=== PATIENT | male | born 1975 | race Caucasian/White ===

== ENCOUNTER → 2018-05-31 00:35 | Outpatient (CLI) | payer OTHER, SELFPAY ==
--- NOTE | 2018-05-31 06:59 | DI.REPORT_ITS ---
SYMPTOM/DIAGNOSIS: CIRRHOSIS, ? HHC, SURVEILLANCE ABDOMINAL ULTRASOUND: Comparison 11/30/17. The aorta and IVC are unremarkable. The liver measures 14 cm in length. The liver has an echotexture. There is a lobulated appearance of the contour. No hepatic mass is seen The findings are suggestive of hepatic cirrhosis. The gallbladder, bile ducts, pancreas and kidneys are unremarkable. The spleen is mildly enlarged measuring almost 14 cm. IMPRESSION: Findings suggestive of hepatic cirrhosis. 2. Splenomegaly. 3. No evidence of an hepatic mass.
== END ==
PROVIDERS: PCP Internal Medicine; Visit Provider Internal Medicine Gastroenterology
DX: K74.60 Unspecified cirrhosis of liver (principal); R16.1 Splenomegaly, not elsewhere classified
CPT/HCPCS: 76700

== ENCOUNTER → 2018-06-02 15:07 | Outpatient (CLI) | payer OTHER, SELFPAY ==
[2018-06-02 15:44] LABS: Abs Immature Grans 0.01 k/cumm (0.0-0.09); Absolute Basophil Count 0.01 k/cumm (0.0-0.2); Absolute Eosinophil Count 0.12 k/cumm (0.0-0.7); Absolute Lymphocyte Count 1.28 k/cumm (1.2-3.4); Absolute Monocyte Count 0.68 k/cumm (0.11-0.7); Absolute Neutrophil Count 3.42 k/cumm (1.2-6.7); Basophils % 0.2; Eosinophils % 2.2; HGB 15.4 g/dL (13.5-17.5); Immature Grans % 0.2; Lymphocytes % 23.2; Mean Corpuscular Hemoglobin 33.2 pg (27.0-33.0); Mean Corpuscular Volume 94.8 fL (80-95); Mean Platelet Volume 11.4 fL (8.0-11.0); Monocytes % 12.3; Neutrophils % 61.9; Platelet Count 107 x1000/uL (130-400); RBC 4.64 m/cumm (4.50-6.00); RBC Distribution Width 12.2 % (11.8-14.1); White Blood Cell Count 5.52 k/cumm (4.4-10.8)
[2018-06-02 16:16] LABS: PTT Activated 25.5 sec (21.0-31.4)
[2018-06-02 16:41] LABS: ALT 40 U/L (12-78); AST 48 U/L (15-37); Albumin 3.5 g/dL (3.4-5.0); Alkaline Phosphatase 91 U/L (46-116); Anion Gap 9.3 mmol/L (3-11); BUN 14 mg/dL (7-18); Bilirubin, Direct 0.35 mg/dL (0.00-0.20); Bilirubin, Total 0.9 mg/dL (0.2-1.0); CO2 25.7 mmol/L (21.0-32.0); CREATININE 0.75 mg/dL (0.70-1.30); Calcium 8.9 mg/dL (8.5-10.1); Chloride 104 mmol/L (98-107); Glucose 77 mg/dL (70-100); Sodium 139 mmol/L (136-145); Total Protein 7.3 g/dL (6.4-8.2)
== END ==
PROVIDERS: PCP Internal Medicine; Visit Provider Internal Medicine Gastroenterology
DX: K74.69 Other cirrhosis of liver (principal)
CPT/HCPCS: 36415; 80048; 80076; 85025; 85730

== ENCOUNTER 2018-12-01 05:49 | Outpatient (CLI) | payer OTHER, SELFPAY ==
--- NOTE | 2018-12-01 08:00 | DI.US_ITS ---
SYMPTOM/DIAGNOSIS: F/U CIRRHOSIS OF LIVER, K74.69 ABDOMEN ULTRASOUND: Comparison is made with 05/31/18. The liver is unchanged in size at 14 cm. Mildly lobulated contour and heterogeneous echotexture and prominent portal vein are again noted. The portal vein flow appears to be in the hepatopedal direction. No ascites is seen. Mild splenomegaly is again noted, unchanged. There is no biliary dilatation or evidence of gallstones. No focal liver masses are identified. The kidneys, aorta and pancreas are unremarkable. The right kidney was not optimally visualized due to bowel gas. IMPRESSION: Stable appearance of mild cirrhosis. No focal liver lesion or ascites.
== END 2018-12-01 06:09 ==
PROVIDERS: PCP Internal Medicine; Visit Provider Internal Medicine Gastroenterology
DX: K74.69 Other cirrhosis of liver (principal); R16.1 Splenomegaly, not elsewhere classified
CPT/HCPCS: 76700

== ENCOUNTER 2019-05-31 15:02 | Outpatient (CLI) | payer OTHER, SELFPAY ==
[2019-05-31 15:44] LABS: INR 1.1 (0.9-1.1); Prothrombin Time 11.2 sec (9.3-11.0)
[2019-05-31 15:47] LABS: Abs Immature Grans 0.02 k/cumm (0.0-0.09); Absolute Basophil Count 0.02 k/cumm (0.0-0.2); Absolute Eosinophil Count 0.17 k/cumm (0.0-0.7); Absolute Lymphocyte Count 1.13 k/cumm (1.2-3.4); Absolute Monocyte Count 0.73 k/cumm (0.11-0.7); Absolute Neutrophil Count 3.89 k/cumm (1.2-6.7); Basophils % 0.3; Eosinophils % 2.9; HCT 45.4 % (40.0-50.0); Immature Grans % 0.3; Mean Corp. HGB Concentration 35.2 g/dL (32.0-36.0); Mean Corpuscular Hemoglobin 33.2 pg (27.0-33.0); Mean Corpuscular Volume 94.2 fL (80-95); Mean Platelet Volume 11.3 fL (8.0-11.0); Monocytes % 12.2; Neutrophils % 65.3; Platelet Count 130 x1000/uL (130-400); RBC 4.82 m/cumm (4.50-6.00); RBC Distribution Width 12.4 % (11.8-14.1); White Blood Cell Count 5.96 k/cumm (4.4-10.8)
[2019-05-31 16:05] LABS: ALT 49 U/L (12-78); AST 50 U/L (15-37); Albumin 3.6 g/dL (3.4-5.0); Alkaline Phosphatase 87 U/L (46-116); Anion Gap 9.3 mmol/L (3-11); BUN 17 mg/dL (7-18); Bilirubin, Total 0.8 mg/dL (0.2-1.0); CO2 25.7 mmol/L (21.0-32.0); CREATININE 0.87 mg/dL (0.70-1.30); Calcium 9.1 mg/dL (8.5-10.1); Chloride 105 mmol/L (98-107); Glucose 95 mg/dL (70-100); Sodium 140 mmol/L (136-145); Total Protein 7.3 g/dL (6.4-8.2)
== END 2019-05-31 15:22 ==
PROVIDERS: PCP Internal Medicine; Visit Provider Internal Medicine Gastroenterology
DX: K74.69 Other cirrhosis of liver (principal)
CPT/HCPCS: 36415; 80053; 85025; 85610

== ENCOUNTER 2019-08-04 01:02 | Outpatient (CLI) | payer OTHER, SELFPAY ==
--- NOTE | 2019-08-04 07:45 | DI.US_ITS ---
EXAM: US ABDOMEN CLINICAL HISTORY: F/U CIRRHOSIS OF LIVER,K74.69. TECHNIQUE: Ultrasound performed using standard protocol. COMPARISON: US ABDOMEN from 12/01/2018 FINDINGS: The liver shows somewhat nodular contour and heterogeneous echotexture consistent with cirrhosis. Th ere is normal directional portal venous flow. No evidence of cholelithiasis or biliary dilatation. Pancreas intact as visualized. Mild splenomegaly noted. The kidneys are unremarkable in appearance. Aorta not well seen. IMPRESSION: Findings consistent with hepatic cirrhosis and splenomegaly. No focal lesion identified.
== END 2019-08-04 01:22 ==
PROVIDERS: PCP Internal Medicine; Visit Provider Internal Medicine Gastroenterology
DX: K74.69 Other cirrhosis of liver (principal); R16.1 Splenomegaly, not elsewhere classified
CPT/HCPCS: 76700

== ENCOUNTER 2022-06-09 10:51 | Outpatient (REF) | payer OTHER, SELFPAY ==
[2022-06-09 11:12] LABS: Source Nasal/Nares
[2022-06-09 16:06] LABS: COVID-19 PCR Negative (Negative)
== END 2022-06-09 10:52 | disposition home or self-care (01) ==
LOC: LBO 10:51
PROVIDERS: PCP Internal Medicine; Visit Provider Nurse Practitioner Family
DX: Z20.822 Contact with and (suspected) exposure to COVID-19 (principal)
CPT/HCPCS: 87635

== ENCOUNTER → 2022-09-20 09:54 | Outpatient (CLI) | payer OTHER, SELFPAY ==
--- OUTSIDE RECORDS SUMMARY | 2022-09-20 09:59 | XMS_ITS | Encounter Summary ---
:1975 Author Organization [facility] Address [address] [place] [address] Care Team Providers Name Role Phone Moy Mcnair MD Primary Care Provider Encounter Details Date Type Department Care Team Description 02/16/2017 Results Only Imaging [facility]- Unknown, PRISM ProviderMD [phone] Social History Tobacco Use Types Packs/Day Years Used Date Smoking Tobacco: Never Smokeless Tobacco: Former Alcohol Use Standard Drinks/Week Comments No 0 (1 standard drink = 0.6 oz pure alcoho l) Sex Assigned at Date Recorded Not on file documented as of this encounter Functional Status Functional Status Response Date of Assessment Because of a physical, mental, or emotional condition, No 10/11/2015 does this person have difficulty doing errands alone such as visiting a doctor's office or shopping? Cognitive Status Response Date of Assessment Because of a physical, mental, or emotional condition, No 10/11/2015 does this person have serious difficulty concentrating, remembering, or making decisions? documented as of this encounter Plan of Treatment Pending Results Name Type Priority Associated Diagnoses Date/Ti me OUTSIDE IMAGES - US BODY Imaging 7:23 EDT documented as of this encounter Visit Diagnoses Not on filedocumented in this encounter Care Teams Microchip Specialist Relationship Specialty Start Date End Date Moy Mcnair MD PCP - General 08/07/11 [address] [place], [place] [phone] documented as of this encounter
--- OUTSIDE RECORDS SUMMARY | 2022-09-20 09:59 | XMS_ITS | Encounter Summary ---
:1975 Author Organization [facility] Address [address] [place] [address] Care Team Providers Name Role Phone Moy Mcnair MD Primary Care Provider Encounter Details Date Type Department Care Team Description 08/04/2019 Results Only Imaging [facility]- Unknown, PRISM ProviderMD [phone] Social History Tobacco Use Types Packs/Day Years [...] me OUTSIDE IMAGES - US BODY Imaging 07/2019 12:39 EDT documented as of this encounter Visit Diagnoses Not on filedocumented in this encounter Care Teams Chip Applying Machine Tender Relationship Specialty Start Date End Date Moy Mcnair MD PCP - General 08/07/11 [address] [place], [place] [phone] documented as of this encounter
--- OUTSIDE RECORDS SUMMARY | 2022-09-20 09:59 | XMS_ITS | Encounter Summary ---
:1975 Author Organization [facility] [place] [address] Care Team Providers Name Role Phone Moy Mcnair MD Primary Care Provider Encounter Details Date Type Department Care Team Description 12/27/2010 Hospital Encounter Radiology at [facility] Dayron Matthews MD [facility] [place] [address] [place] [address] Social History Tobacco Use Types Packs/Day Years Used Date Smoking Tobacco: Never Assessed Sex Assigned at Date Recorded Not on file documented as of this encounter Plan of Treatment Not on filedocumented as of this encounter Procedures Procedure Name Priority Date/Time Associated Diagnosis Comme nts PATHOLOGY ADDENDUM Routine 12/27/2010 8:36 AM Res ults for this REPORT EST procedure are i n the results section. SURGICAL PATHOLOGY Routine 12/27/2010 8:36 AM Res ults for this REPORT EST procedure are i n the results section. documented in this encounter Results PATHOLOGY ADDENDUM REPORT (12/27/2010 8:36 AM EST) Component Value Ref Test Analysis Performed At [facility] Range Method Time Signature Addendum CERNER Report ? [facility] ? Provider: ?? DAYRON MATTHEWS ??Pt. Name: ?? DORETHA SCHULTZ V ? Acc #: ?[id number] ?Pt. MRN: ?[id number] ? Col Date: ?? 12/27/2010 ?/Sex: ?1975,(36 years),Male ? Rec Date: ?? 12/27/2010 ?LOC: ?3W ? ADDENDUM REPORT ? ---Addendum Discussion--- ? This case has been re viewed by India Montes MD of [facility] ? Care ([facility]) by report dated 01/13/2012 with the accession number [id number]. ? The [facility] diagnosis is in agreement with our diagnosis. ??For the full text ? of the [facility] report(s) please refer to Non-DH ? Documentation Pathology in the electronic health stefano [address] (eDH). ? 02/25/12 ? JLL ? 02/25/12 Verified by: ? Jean Pierre BEDOLLA, Reynold ? Pathologist ? (Electronic Si gnature) ? The attending pathologist whose signature appears o n this report has ? reviewed all diagnostic slides and has edited the mario ss and/or ? microscopic portion of the report in rendering the fi nal pathologic ? diagnosis. Specimen (Source) Anatomical Collection Method Collection Time Re ceived Time Location / / Volume Laterality 12/27/2010 8:36 AM EST Dayron Matthews MD PATHOLOGY/CYTOLOGY ORDERABLE S Performing Organization Address City/State/[place] [address] [facility] PATHOLOGY SURGICAL PATHOLOGY FINAL REPORT (12/27/2010 8:36 AM EST) Component Value Ref Test Analysis Performed At [facility] Range Method Time Signature Surgical CERNER Pathology ? [facility] Report ? Provider: ?? DAYRON MATTHEWS ??Pt. Name: ?? DORETHA SCHULTZ ? Acc #: ?[id number] ?Pt. MRN: ?[id number] ? Col Date: ?? 12/27/2010 ?/Sex: ?1975,(35 years),Male ? Rec Date: ?? 12/27/2010 ?LOC: ?3W ? SURGICAL PATHOLOGY ? ---Pathologic Diagnosis--- ? Liver biopsy: ?Fragments of cir rhotic liver parenchyma (Stage 4/4) with ongoing septal ?and lobular necroinflammatory activi ty consistent with Grade 2/4. ?Mild (1+) iron d eposition is present within hepatocytes and Kupffer ?cells. ?There is no evidence of significant steatosis. ?NOTE: ??Iron and trichrome stains were evaluated for final diagnosis. ? CR-0 ? 12/31/10 ? BDS ? 12/31/10 Verified by: ? Fahad Bettencourt MD ? Pathologist ? (Electronic Si gnature) ? The attending pathologist whose signature appears o n this report has ? reviewed all diagnostic slides and has edited the mario ss and/or ? microscopic portion of the report in rendering the fi nal pathologic ? diagnosis. ? ---Microscopic Description--- ? Slides reviewed, microscopic description not recorded . ? ---Gross Description--- ? Labeled/Fixative: ? Liver biopsy, formalin. ? Qty/Size/Weight: ?Seven needle core biopsies, ranging from 0.3 x 0.1 cm ? to 1.5 x 0.1 c m. ??Soft, pink-brown. ? Sections/Processing: ??(T1) ??aje/SNS ? ---Clinical Information--- ? Specimen Submitted: ? A - Liver biopsy ? Clinical History: ? New diagnosis of hep C ? Clinical Diagnosis: ? cirrhosis Specimen (Source) Anatomical Collection Method Collection Time Re ceived Time Location / / Volume Laterality 12/27/2010 8:36 AM EST Dayron Matthews MD PATHOLOGY/CYTOLOGY ORDERABLE S Performing Organization Address City/State/[place] [address] [facility] documented in this encounter Visit Diagnoses Not on filedocumented in this encounter Care Teams Manager Telemarketing Relationship Specialty Start Date End Date Moy Mcnair MD PCP - General 11/04/10 [address] [place] [address] documented as of this encounter
--- OUTSIDE RECORDS SUMMARY | 2022-09-20 09:59 | XMS_ITS | Encounter Summary ---
:1975 Author Organization [facility] Address [address] [place] [address] Care Team Providers Name Role Phone Moy Mcnair MD Primary Care Provider Reason for Referral Consult (Routine) - Closed Specialty Diagnoses / Referred By Contact Referred To Contact Procedures Gastroenterology and Diagnoses Cirrhosis of liver without ascites, unspecified hepatic cirrhosis type (HCC-CMS) (HCC) Obesity, unspecified obesity severity, unspecified obesity type Stefany Tracey [facility] Mp5 Gi Hepatology MD [address] [facility] [address] [place], [place] [address] [place] [address] Phone: [facility] [address] [place] [address] Referral ID Status Reason Start Date Expiration Date Visits V isits Requested Authorized [id number] Closed Specialty 05/28/2016 1 1 Services Required Question Answer Reason for Request: 40yo obese man with cirrhosi s needs recommendations for 1500-180 0 calorie diet Scheduling Comments (optional ? 2-3 weeks describe specific scheduling needs if applicable): adiology Services (Routine) - Closed Specialty Diagnoses / Procedures Referred By Contact Refer red To Contact Diagnoses Cirrhosis of liver without ascites, unspecified hepatic cirrhosis type (HCC-CMS) (HCC) Stefany Tracey MD Procedures RAD US ABDOMEN ONE ORGAN/QUADRANT [address] [facility], [address] [place] [address] Referral ID Status Reason Start Date Expiration Date Visits Requ ested Visits Authorized [id number] Closed 05/28/2016 1 1 Reason for Visit Reason Comments Follow-up 6 month follow up; Done ivan ma in [facility] Encounter Details Date Type Department Care Team Description 05/28/2016 Office Visit [facility] Stefany Tracey Cirrhos is of liver without ascites, unspecified hepatic cirrhosis type ([facility]-HCC) (Primary Dx); Gastroenterology - Main MD Nida Obesity, unspecified obesity severity, u nspecified obesity type [id number] [place] [address] [facility] [address] [place] [address] Social History Tobacco Use Types Packs/Day Years Used Date Smoking Tobacco: Never Smokeless Tobacco: Former Alcohol Use Standard Drinks/Week Comments No 0 (1 standard drink = 0.6 oz pure alcoho l) Sex Assigned at Date Recorded Not on file documented as of this encounter Last Filed Vital Signs Vital Sign Reading Time Taken Comments Blood Pressure 147/74 05/28/2016 0949 EDT Pulse 60 05/28/2016 0949 EDT Temperature - - Respiratory Rate - - Oxygen Saturation - - Inhaled Oxygen Concentration - - Weight 116.6 kg (257 lb) 05/28/2016 0949 EDT Height 172.7 cm (5' 8) 05/28/2016 0949 EDT Body Mass Index 39.08 05/28/2016 0949 EDT documented in this encounter Functional Status Functional Status Response [...] making decisions? documented as of this encounter Progress Notes Stefany Tracey MD - 05/28/2016 0944 EDT Mr. Freeman is a40yo obese man with anxiety and stable cirrhosis s/p cure of HCV after 12 weeks of Harvoni presenting for scheduled clinic follow up visit without complaints.?? Exam: Well-developed, well-nourished obese male in no acute distress. Heent: anicteric, neck supple, no adenopathy. Lungs: clear. Heart: regular rate and rhythm. Abdomen: obese, soft, nontender, +BS, no masses. Extremities: without cyanosis and clubbing; 2+ edema to midshin. Lab: Lab Results Component Value Date AST 147* 04/21/2013 ALT 139* 04/21/2013 TBIL 1.6* 04/21/2013 ALKPHOS 218* 04/21/2013 LABALBU 3.5 04/21/2013 [facility] (03/31/16) HCV RNA: undetectable Abdominal US: cirrhosis and mild splenomegaly; no obvious masses Impression: 1. Cirrhosis secondary to cured HCV Mr. Freeman is a 40yo obese man with anxiety and cirrhosis secondary to HCV genotype 1 s/p cure with12 weeks of Harvoni, presenting for scheduled follow up. He has not had a recent liver panel performed, but HCV RNA is undetectable, and abdominal US reveals cirrhosis without masses. Mr. Freeman has not had an EGD for varices surveillance. Will schedule this procedure and continue surveillance of bothHCC and varices. He understands that despite cure of his HCV, his cirrhosis remains, and he requiresregular monitoring to prevent/provide early management of any sequelae. Finally, we reviewed salt-restricted diet and the possible need for diuretics if edema worsens. He insists that his edema resolves with his feet elevated and will try harder to comply with the diet. Plan: 1. Increase carvedilol to 12.5 BID 2. EGD for varices surveillance (patient reluctant to have it done at this time due to high insurance deductible) 3. Reviewed salt-restricted diet (2g sodium per day) 4. Liver panel and abdominal US in 6 months 5. Follow up in 6 months documented in this encounter Plan of Treatment Scheduled Orders Name Type Priority Associated Diagnoses Order S chedule RAD US ABDOMEN ONE Imaging Routine Cirrhosis of liver wit hout Ordered: 05/28/2016 ORGAN/QUADRANT ascites, unspecified hepatic cirrhosis type (CMS-HCC) Scheduled Referrals Name Type Priority Associated Diagnoses Order S chedule AMB CONS/FOLLOW UP Outpatient Referral Routine Cirrhosis of li mee Ordered: NUTRITION without ascites, 05/28/2016 unspecified hepatic cirrhosis type (CMS-HCC) Obesity, unspecified obesity severity, unspecified obesity type documented as of this encounter Visit Diagnoses Diagnosis Cirrhosis of liver without ascites, unsp ecified hepatic cirrhosis type (HCC-[facility]) (HCC) - Primary Obesity, unspecified obesity severity, u nspecified obesity type documented in this encounter Care Teams Rn Cardiovascular Icu Relationship Specialty Start Date End Date Moy Mcnair MD PCP - General 08/07/11 [address] [place] [address] documented as of this encounter
--- OUTSIDE RECORDS SUMMARY | 2022-09-20 09:59 | XMS_ITS | Encounter Summary ---
:1975 Author Organization [facility] Address [address] [place] [address] Care Team Providers Name Role Phone Moy Mcnair MD Primary Care Provider Reason for Visit Reason Onset Date Comments Medications Refill 06/23/2016 Pt is to get refill on carvedilol, but said Dr. Tracey was to have dosage i ncreased. Please call to discuss prior to refilling s cript. Encounter Details Date Type Department Care Team Description 06/23/2016 Telephone [facility] Stefany Tracey Me dications Refill Gastroenterology - Main (Pt is to get refill [place] [address] [place] [address] on carvedilol, but [address] [facility] [place] [address] [facility] to have dosage [phone] Pavilion, Level 5 increased. Please [place], [place] call to discu [phone] prior to refilling [phone] (Wo rk) script.) Social History Tobacco Use Types Packs/Day Years [...] making decisions? documented as of this encounter Ordered Prescriptions Prescription Sig Dispensed Refills Start Date End Date carvedilol (COREG) 12.5 mg Take 1 Tab by mouth 60 Tab 5 06/23/2016 tablet 2 times daily. carvedilol (COREG) 12.5 mg Take 1 Tab by mouth 60 Tab 5 06/23/2016 06/23/2016 tablet 2 times daily. documented in this encounter Miscellaneous Notes Telephone Encounter - Joan Ortiz RN - 06/23/2016 0915 EDT Spoke with patient regarding his medication carvedilol. At his last office visit, Dr. Tracey increased his carvedilol to 12.5 mg BID. Nurse phoned in a verbal script to [facility] and spoke to [place] Pharmacist. Patient was notified. documented in this encounter Plan of Treatment Not on filedocumented as of this encounter Visit Diagnoses Not on filedocumented in this encounter Discontinued Medications Medication Sig Discontinue Reason Start Date End Date carvedilol (COREG) 6.25 Take 1 Tab by mouth Dose adjustment 013 06/23/2016 mg tablet daily. carvedilol (COREG) 12.5 Take 1 Tab by mouth Reorder 06/23/2016 06/23/2016 mg tablet 2 times daily. documented as of this encounter Care Teams Credit Reference Clerk Relationship Specialty Start Date End Date Moy Mcnair MD PCP - General 08/07/11 [address] [place] [address] documented as of this encounter
--- OUTSIDE RECORDS SUMMARY | 2022-09-20 09:59 | XMS_ITS | Encounter Summary ---
:1975 Author Organization [facility] Address [address] [place] [address] Care Team Providers Name Role Phone Moy Mcnair MD Primary Care Provider Reason for Visit Reason Onset Date Comments Results 01/25/2014 Encounter Details Date Type Department Care Team Description 01/25/2014 Telephone [facility] Slime Contreras RN [address] [address] Social History Tobacco Use Types Packs/Day Years Used Date Smoking Tobacco: Never Smokeless Tobacco: Former Alcohol Use Standard Drinks/Week Comments No 0 (1 standard drink = 0.6 oz pure alcoho l) Sex Assigned at Date Recorded Not on file documented as of this encounter Miscellaneous Notes Telephone Encounter - Slime Contreras RN - 01/25/2014 1050 EDT Patient,s made aware has reviewed most recent bloodwork & recommends decreasing interferon dose from 180mcg/week to 135 mcg & Repeating bloodwork in 1 week. He will stay on current doses of ribavirin & sovaldi.She verbalized understanding . documented in this encounter Plan of Treatment Not on filedocumented as of this encounter Visit Diagnoses Not on filedocumented in this encounter Care Teams Ornamental Plaster Sticker Relationship Specialty Start Date End Date Moy Mcnair MD PCP - General 08/07/11 [address] [place], [place] [phone] documented as of this encounter
--- OUTSIDE RECORDS SUMMARY | 2022-09-20 09:59 | XMS_ITS | Encounter Summary ---
:1975 Author Organization [facility] Address [address] [place] [address] Care Team Providers Name Role Phone Moy Mcnair MD Primary Care Provider Encounter Details Date Type Department Care Team Description 10/11/2014 Orders Only [facility] Carey Tracey MD Gastroenterology - Main [address] [facility], [facility] [address] [facility], [address] [place] [address] [place], [place] [phone] (Wo rk) Social History Tobacco Use Types Packs/Day Years [...] on filedocumented in this encounter Care Teams Vegetable Harvest Machine Operator Relationship Specialty Start Date End Date Moy Mcnair MD PCP - General 08/07/11 [address] [place] [address] documented as of this encounter
--- OUTSIDE RECORDS SUMMARY | 2022-09-20 09:59 | XMS_ITS | Encounter Summary ---
:1975 Author Organization [facility] Address [address] [place] [address] Care Team Providers Name Role Phone Moy Mcnair MD Primary Care Provider Encounter Details Date Type Department Care Team Description 2014 Orders Only [facility] [place], Unspecifi ed viral Gastroenterology - Main Sylvie, RN hepa titis C without [place] hepatic coma (Primary [address]) [place] [address] Social History Tobacco Use Types Packs/Day Years Used Date Smoking Tobacco: Never Smokeless Tobacco: Former Alcohol Use Standard Drinks/Week Comments No 0 (1 standard drink = 0.6 oz pure alcoho l) Sex Assigned at Date Recorded Not on file documented as of this encounter Plan of Treatment Not on filedocumented as of this encounter Visit Diagnoses Diagnosis Unspecified viral hepatitis C without he patic coma - Primary documented in this encounter Care Teams Armorer Technician Relationship Specialty Start Date End Date Moy Mcnair MD PCP - General 08/07/11 [address] [place], [place] [phone] documented as of this encounter
--- OUTSIDE RECORDS SUMMARY | 2022-09-20 09:59 | XMS_ITS | Encounter Summary ---
:1975 Author Organization [facility] Address [address] [place] [address] Care Team Providers Name Role Phone Moy Mcnair MD Primary Care Provider Reason for Visit Reason Onset Date Comments Results 04/21/2014 Encounter Details Date Type Department Care Team Description 04/21/2014 Telephone [facility] Slime Contreras RN [address] [address] Social History Tobacco Use Types Packs/Day Years Used Date Smoking Tobacco: Never Smokeless Tobacco: Former Alcohol Use Standard Drinks/Week Comments No 0 (1 standard drink = 0.6 oz pure alcoho l) Sex Assigned at Date Recorded Not on file documented as of this encounter Miscellaneous Notes Telephone Encounter - Slime Contreras RN - 04/21/2014 0815 EDT Patient was called & made aware HCV viral testing at the end of treatment this week resulted as undetected. He will be seen in follow up on 04/27/14.He verbalized understanding. documented in this encounter Plan of Treatment Not on filedocumented as of this encounter Visit Diagnoses Not on filedocumented in this encounter Care Teams Bricklayer Helper Relationship Specialty Start Date End Date Moy Mcnair MD PCP - General 08/07/11 [address] [place], [place] [phone] documented as of this encounter
--- OUTSIDE RECORDS SUMMARY | 2022-09-20 09:59 | XMS_ITS | Encounter Summary ---
:1975 Author Organization [facility] [place] [address] Care Team Providers Name Role Phone Moy Mcnair MD Primary Care Provider Encounter Details Date Type Department Care Team Description 02/24/2012 External Results Medical Records Provider, [place] [address] Social History Tobacco Use Types Packs/Day Years Used Date Smoking Tobacco: Never Assessed Sex Assigned at Date Recorded Not on file documented as of this encounter Plan of Treatment Not on filedocumented as of this encounter Procedures Procedure Name Priority Date/Time Associated Diagnosis Comme nts SURGICAL PATHOLOGY SCAN Routine 02/24/2012 documented in this encounter Results Scan Doc: Surgical Pathology (02/24/2012) Narrative This result has an attachment that is no t available. Finn Iqbal MD MEDIA MGR SCAN EXT ORDR/RSLT documented in this encounter Visit Diagnoses Not on filedocumented in this encounter Care Teams Thermodynamics Engineer Relationship Specialty Start Date End Date Moy Mcnair MD PCP - General 11/04/10 [address] [place] [address] documented as of this encounter
--- OUTSIDE RECORDS SUMMARY | 2022-09-20 09:59 | XMS_ITS | Encounter Summary ---
:[address] [facility] Address [address] [place] [address] Care Team Providers Name Role Phone Moy Mcnair MD Primary Care Provider Reason for Referral Radiology Services (Routine) - Closed Specialty Diagnoses / Procedures Referred By Contact Refer red To Contact Diagnoses Viral hepatitis C Stefany Tracey MD Procedures RAD US ABDOMEN ONE ORGAN/QUADRANT [address] [place] [phone] Referral ID Status Reason Start Date Expiration Date Visits Requ ested Visits Authorized [id number] Closed 04/28/2014 1 1 Reason for Visit Reason Comments Follow-up hep c, 3 mo f/u Encounter Details Date Type Department Care Team Description 04/27/2014 Office Visit [facility] Stefany Tracey Viral h epatitis C Gastroenterology - [facility] MD Nida (Primary Dx) [address] [phone] [address] Social History Tobacco Use Types Packs/Day Years Used Date Smoking Tobacco: Never Smokeless Tobacco: Former Alcohol Use Standard Drinks/Week Comments No 0 (1 standard drink = 0.6 oz pure alcoho l) Sex Assigned at Date Recorded Not on file documented as of this encounter Last Filed Vital Signs Vital Sign Reading Time Taken Comments Blood Pressure 145/86 04/27/2014 1638 EDT Pulse 81 04/27/2014 1638 EDT Temperature - - Respiratory Rate - - Oxygen Saturation - - Inhaled Oxygen Concentration - - Weight 101.6 kg (224 lb) 04/27/2014 1638 EDT Height 172.7 cm (5' 8) 04/27/2014 1638 EDT Body Mass Index 34.06 04/27/2014 1638 EDT documented in this encounter Progress Notes Stefany Tracey MD - 04/27/2014 1652 EDT Mr. 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 8 and 12); highly suggestive of cure. Mr. Freeman says he was 'cranky' and very sleepy, but otherwise had no other side effects. Exam: Well-developed, well-nourished male in no acute distress. Heent: anicteric, neck supple, no adenopathy. Lungs: clear. Heart: regular rate and rhythm. Abdomen: soft, nontender, +BS, no masses. Extremities: without cyanosis or clubbing, 1+ edema in L foot. Lab: Lab Results Component Value Date AST 147* 04/21/2013 ALT 139* 04/21/2013 TBIL 1.6* 04/21/2013 ALKPHOS 218* 04/21/2013 LABALBU 3.5 04/21/2013 [facility] (March 2014) AST: 70 ALT: 98 Total bilirubin: 1.35 Platelet count: ~100 Impression: 1. HCV genotype 1, cirrhosis, ETR to sofosbuvir/PegIFN/riba Mr. Freeman is a 38yo man with a history of HCV genotype 1 and alcohol abuse resulting in cirrhosis.He has been abstinent for >6 months and has completed treatment with triple therapy (sofosbuvir/PegIFN/riba). HCV RNA levels have been undetectable at weeks 4, 8, and 12; portending a >95% likelihood of cure. However, given his cirrhosis, he will continue with monitoring for HCC in the near term. It is possible that his stage of fibrosis may have improved given his abstinence from alcohol and eradication of HCV. Will consider a repeat liver biopsy within the next year if his HCV RNA remains undetectable over that time and he remains abstinent. Plan: 1. HCV RNA, liver panel, platelet count in 6 months 2. Abdominal US in 6 mnonths 3. Follow up in 6 months documented in this encounter Plan of Treatment Scheduled Orders Name Type Priority Associated Diagnoses Order S chedule RAD US ABDOMEN ONE Imaging Routine Viral hepatitis C Orde red: 04/28/2014 ORGAN/QUADRANT documented as of this encounter Visit Diagnoses Diagnosis Viral hepatitis C - Primary Unspecified viral hepatitis C without he patic coma documented in this encounter Care Teams Accounting Tutor Relationship Specialty Start Date End Date Moy Mcnair MD PCP - General 08/07/11 [address] [place] [address] documented as of this encounter
--- OUTSIDE RECORDS SUMMARY | 2022-09-20 09:59 | XMS_ITS | Encounter Summary ---
:1975 Author Organization [facility] [place] [address] Care Team Providers Name Role Phone Moy Mcnair MD Primary Care Provider Encounter Details Date Type Department Care Team Description 11/19/2010 Office Visit Gastroenterology at [facility] Radha Vyas APRN [facility] [place] [address] GASTROENTEROLOGY DEPT. [place], [place] [address] Social History Tobacco Use Types Packs/Day Years Used Date Smoking Tobacco: Never Assessed Sex Assigned at Date Recorded Not on file documented as of this encounter Plan of Treatment Not on filedocumented as of this encounter Procedures Procedure Name Priority Date/Time Associated Comments Diagnosis [facility] Routine 11/19/2010 2:52 PM Re sults for this EST procedure are i n the results section. DIFFERENTIAL, Routine 11/19/2010 2:52 PM Results for this AUTOMATED EST procedure are i n the results section. PROTHROMBIN TIME Routine 11/19/2010 2:52 PM Resul ts for this EST procedure are i n the results section. CBC (WITH DIFF) Routine 11/19/2010 2:52 PM Result s for this EST procedure are i n the results section. COMPREHENSIVE Routine 11/19/2010 2:52 PM Results for this METABOLIC PANEL EST procedure ar e in (NON-FASTING) the results section. documented in this encounter Results REFLEX LAB-[facility] (11/19/2010 2:52 PM EST) [facility] Method Time Signature Misc Loco CERNER ? HI ? Expected [facility] Test ? Result ?LO ??Units ??Values IL28B Polymorphism Genotype ??IL28B Polymorphism: ?CC genotype The CC genotype, as compared to either the CT or TT genotypes, has been associated with an approximately 2-3 fold greater rate of sustained viral response in Hepatitis C Virus genotype 1 chronically infected individuals treated with combination pegylated interferon/ribavirin therapy (1). Similar sustained viral response associations across various racial groups including Americans (95% CI 1.8-2.3), Americans (95% CI 1.9-4.7), and Hispanics (95% CI 1.4-3.2) have been observed (1). The CC genotype has also been associated with a 3 fold increase in rate of spontaneous clearance of HCV (2). IL28B genotype is only one of many factors that can influence response rated to pegylated interferon/ribavirin therapy in HCV genotype 1 infection and should be interpreted in the context of other clinical factors. Method: Real-time Polymerase Chain Reaction (PCR) with allele specific TaqMan probes is used to detect a Single Nucleotide Polymorphism (SNP) ([id number] C/T) on chromosome 19q13. The [id number] SNP maps 3 Kilobases upstream of the IL28B gene (OMIM: 075212) which encodes the type III interferon IFN-Lambda 3. No other polymorphisms are detected by this assay. Molecular-based testing is highly accurate, but as in any laboratory test, rare diagnostic errors may occur. Results of this test are for Investigational Purposes Only. The performance characteristics of this assay have been determined by [employer]. The result should not be used as a diagnostic procedure without confirmation of the diagnosis by another medically established diagnostic product or procedure. Director Review: Garfield Wall, PhD, [facility] Director, Molecular Genetics Test Performed by: [facility] ? [address] ? [address] [address] ? [place] [address] Specimen Anatomical Collection Method Collection Time Receive d Time (Source) Location / / Volume Laterality Blood specimen 11/19/2010 2:52 PM 011 3:21 (specimen) EST PM EST Radha Vyas APRN CHEMISTRY ORDERABLES Performing Organization Address City/State/ZIP Code Phon e Number [place] [phone] CERNER MILLENNIUM (ABNORMAL) REFLEX LAB-A-DIFF (11/19/2010 2:52 PM EST) [facility] gist Method Time Signature Neutrophils % 75.8 (H) 34.0 - CERNER 71.0 % MILLENNIUM Neutr Abs (ANC) 5.06 1.50 - CERNER 6.30 MILLENNIUM x10(3)/mc L Lymphocytes % 14.3 (L) 19.0 - CERNER 53.0 % MILLENNIUM Lymphocytes Abs 1.0 1.0 - 3.6 CERNER x10(3)/mc MILLENNIUM L Monocytes % 8.9 4.0 - CERNER 13.0 % MILLENNIUM Monocyte Abs 0.6 0.2 - 1.0 CERNER x10(3)/mc MILLENNIUM L Eosinophils % 0.5 0.0 - 7.0 CERNER % MILLENNIUM Eosinophils Abs 0.0 0.0 - 0.5 CERNER x10(3)/mc MILLENNIUM L Basophils % 0.3 0.0 - 2.0 CERNER % MILLENNIUM Basophils Abs 0.0 0.0 - 0.2 CERNER x10(3)/mc MILLENNIUM L Immature Gran % 0.20 0.00 - CERNER 0.66 % MILLENNIUM Comment: Immature granulocytes(IG's)percentage an d absolute count will include metamyelocytes, myelocytes, and promyelo cytes. Blood smears from CBCs yielding IG's will be scanned manually for concor dance. If this scan disagrees with the automated IG or if promyelocytes are not ed, a manual differential will be performed. Flavia Gran Abs 0.01 0.00 - 0.05 x10(3)/mcL CER NER MILLENNIUM Specimen Anatomical Collection Method Collection Time Receive d Time (Source) Location / / Volume Laterality Blood specimen 11/19/2010 2:52 PM 011 3:11 (specimen) EST PM EST Radha Soraida Asael HERMAN HEMATOLOGY ORDERABLES Performing Organization Address City/[facility] [address]/[facility] Phon e Number [address] CERNER MILLENNIUM PROTIME-INR (11/19/2010 2:52 PM EST) P athologist Signature PT 14.1 12.3 - 14.7 CERNER sec MILLENNIUM Comment: [facility] Transfusion Committee Guidelines: I NR less than 2.0, PTT less than OR equal to 43.5 seconds, or Fibrinogen gre ater than or equal to 100 mg/dl indicate adequate procoagulant activity for hemostasis in patients without underlying bleeding disorders. INR 1.1 0.9 - 1.1 CERNER MILLENNIUM Specimen Anatomical Collection Method Collection Time Receive d Time (Source) Location / / Volume Laterality Blood specimen 11/19/2010 2:52 PM 011 3:11 (specimen) EST PM EST Radha Vyas APRN HEMATOLOGY ORDERABLES Performing Organization Address City/[facility] [address]/[facility] Code Phon e Number [address] CERNER MILLENNIUM (ABNORMAL) CBC (11/19/2010 2:52 PM EST) P athologist Signature WBC 6.7 4.0 - 10.0 CERNER x10(3)/mcL MILLENNIUM RBC 4.99 4.63 - CERNER 6.08 MILLENNIUM x10(6)/mcL Hemoglobin 16.6 13.7 - CERNER 17.5 gm/dL MILLENNIUM Hematocrit 46.9 40.0 - CERNER 51.0 % MILLENNIUM MCV 94.0 (H) 79.0 - CERNER 92.0 fL MILLENNIUM MCH 33.3 (H) 25.6 - CERNER 32.2 pg MILLENNIUM MCHC 35.4 32.0 - CERNER 36.5 gm/dL MILLENNIUM Platelets 104 (L) 145 - 370 CERNER x10(3)/mcL MILLENNIUM RDWSD 41.3 35.0 - CERNER 46.0 fL MILLENNIUM RDWCV 12.2 10.9 - CERNER 14.4 % MILLENNIUM MPV 11.9 9.0 - 12.0 CERNER fL MILLENNIUM Specimen Anatomical Collection Method Collection Time Receive d Time (Source) Location / / Volume Laterality Blood specimen 11/19/2010 2:52 PM 011 3:11 (specimen) EST PM EST Radha Vyas APRN HEMATOLOGY ORDERABLES Performing Organization Address City/State/[place] [address] CERNER MILLENNIUM (ABNORMAL) COMPREHENSIVE METABOLIC PANEL (NON-FASTING) (11/19/2010 2:52 PM EST) P athologist Signature Glucose Lvl 95 <=199 mg/dL CERNER MILLENNIUM Comment: Diabetes: >=200 mg/dL plus symp toms BUN 15 10 - 20 mg/dL CERNER MILLENNIU M Creatinine 0.72 (L) 0.80 - 1.50 mg/dL CERNER MILL ENNIUM Sodium 141 135 - 145 mmol/L CERNER SABINO NIUM Potassium 4.3 3.5 - 5.0 mmol/L CERNER SABINO NIUM Comment: Please note: ??Patients with WBC >100,00 0 may have falsely elevated Potassium levels. ??For accurate Potassium quantif ication in these patients send serum separator tube (gold top) for subsequent determinations. ??Contact the Clinical Chemistry Laboratory if there are any qu estions. Chloride 107 98 - 107 mmol/L CERNER MILLENN IUM CO2 25 22 - 31 mmol/L CERNER MILLENNI UM Anion Gap 9 5 - 15 mmol/L CERNER MILLENNIU M Calcium 9.0 8.5 - 10.5 mg/dL CERNER SABINO NIUM Total Protein 7.8 6.4 - 8.3 gm/dL CERNER MIL LENNIUM Albumin 3.9 3.2 - 5.2 gm/dL CERNER MILLENN IUM AST 123 (H) 0 - 39 unit/L CERNER MILLENNIU M ALT 137 (H) 0 - 55 unit/L CERNER MILLENNIU M Alk Phos 131 (H) 40 - 120 unit/L CERNER MILLENN IUM Total Bilirubin 0.6 0.2 - 1.3 mg/dL CERNER M ILLENNIUM Bili, Direct 0.2 0.0 - 0.3 mg/dL CERNER MILL ENNIUM Estimated GFR >60 >=60 CERNER MILLENNIU M Comment: The National Kidney Disease Education Pr ogram (NKDEP) has recommended all laboratories report estimated GFR (eGFR) along with plasma creatinine measurements to assist you with recognit ion of early kidney disease. Caveats: ??Plasma creatinine should be a t steady-state (unchanged within the past week). ??Patient age > = 18 years, and for Americans multiply eGFR by 1.2. At present, NKDEP does NOT recommend usi ng the MDRD equation for drug dosing purposes and pharmacists should continue to use their current dosing methods. In addition, numerical eGFR values great er than 60 ml/min/1.73 square meters should be treated as > 60, and not an ex act number due to greater inaccuracies at these higher values. Per NKDEP, they classify normal renal function as any GFR >60ml/min/1.73 square meters; chronic kidney disease wh en GFR <60, and renal failure when GFR <15. ??This calculation may not be valid for patients with atypical muscle mass (very lean or obese), acute renal failur e, and in patients with diabetic kidney disease. References: http://nkdep.nih.gov/resources/NKDEP_Sug gestn4Labs_0606_508.pdf http://www.kidney.org/professionals/kls/ pdf/faq_gfr.pdf Specimen Anatomical Collection Method Collection Time Receive d Time (Source) Location / / Volume Laterality Blood specimen 11/19/2010 2:52 PM 011 3:11 (specimen) EST PM EST Radha Vyas APRN CHEMISTRY ORDERABLES Performing Organization Address City/State/ZIP Code [place] [address] [facility] documented in this encounter Visit Diagnoses Not on filedocumented in this encounter Care Teams Yarn Comber Relationship Specialty Start Date End Date Moy Mcnair MD PCP - General 11/04/10 [address] [place] [address] documented as of this encounter
--- OUTSIDE RECORDS SUMMARY | 2022-09-20 09:59 | XMS_ITS | Encounter Summary ---
:1975 Author Organization [facility] Address [address] [place] [address] Care Team Providers Name Role Phone Moy Mcnair MD Primary Care Provider Encounter Details Date Type Department Care Team Description 02/24/2018 Results Only [facility] Lee Stewart, DO [phone] [facility] [address] (Wo rk) Social History Tobacco Use Types [...] Procedure Name Priority Date/Time Associated Diagnosis [facility] SURGICAL PATHOLOGY Routine 02/24/2018 9:21 EDT Re sults for this procedure are i n the results section. documented in this encounter Results SURGICAL PATHOLOGY (02/24/2018 9:21 EDT) Component Value Ref Test Analysis Performed At [facility] Method Time Signature Pathology SURGICAL PATHOLOGY REPORT [facility] Report: Reports generated via electronic interface contain origina l data; CENTER however they are lacking the format of the original report. LABORATORY Caution should be taken when reading/interpreting unformat adela reports. SERVICES Name: ? DORETHA SCHULTZ V ? Accession #: ? [id number] ? : ? 1975 (Age: 3 3) ??M ? Collect Date: ? 02/24/2018 ? Location: ? [facility] ? Receive Date: ? 02/25/2018 ? Provider: LEE STEWART DO Copy to: MOY MCNAIR MD ? Final Pathologic Diagnosis: SKIN OF SCALP, EXCISION: - Hemangioma. See comment. - Lesion focally extends to cauterized tissue edge. Comment: Two fragments of tissue are received. Within the main excisi on specimen, hemangioma is present which is transected along the deep aspect of the excision. It measures within 0.1 mm of the nearest peripheral (9 o'c lock) margin. The second portion of tissue received is a cauterized portion of deeper tissue. Within this tissue, residual lesion is noted which is generally encompassed, although does extend to one cauterized tissue edge. Platinumsmith sections were shown at interdepartmental consultation conference. (Dr. Chan diego)/jds Document reviewed and electronically signed by: ZA JACINTO MD Report ??Date: 02/26/2018 14:05 By the signature above, the attending physician certifies th at he/she has personally conducted a gross and/or microscopic examin ation of the described specimens and rendered or confirmed the above diagnosis. Specimen(s) Received: Scalp lesion, suture anterior Clinical History: Neoplasm scalp; clinical diagnosis code: ??D48.5 Gross Description: ? Received in formalin labelled with proper patient identification (initials A, J) and scalp lesion, sut ure anterior is an oriented elliptical excision of granados-pink, hairbearing skin ( 2.6 cm from 12 o'clock to 6 o'clock x 1.0 cm from 3 o'clock to 9 o'clock and excised to a depth of 0.3 cm) wit h a suture at the anterior aspect which is designated 12 o'clock. There is a centrally located granados-brown, lobulated papule (0.8 x 0.6 x 0.2 cm). The 12-3-6 o'clock aspect is blue inked and the 6-9-12 o'clock aspect is black inked. The specimen is serially sectioned from 12 o 'clock to 6 o'clock. Also received in the container is a heavily cauterized piece of yellow lobulated tissue (2.1 x 0.6 x 0.4 cm). The specimen is inked black. The specimen is entirely subm itted as follows: BLOCK PALACIO 1- ??12 o'clock tip, reverse en face 2-4- ??central sections 5- ??6 o'clock tip, reverse en face 6-7- ??separately received cauterized tissue, serially secti oned Dr. Patel 02/25/2018 2:23 PM End of Report Specimen Anatomical Collection Method Collection Time Receive d Time (Source) Location / / Volume Laterality 02/24/2018 9:21 02/25/2018 9 :21 EDT EDT Lee Stewart DO PATHOLOGY ORDERABLES Performing Organization Address City/State/ZIP Code Phon e Number [facility] [address] [place] [address] SERVICES documented in this encounter Visit Diagnoses Not on filedocumented in this encounter Care Teams Grounds Manager Relationship Specialty Start Date End Date Moy Mcnair MD PCP - General 08/07/11 [address] [place] [address] documented as of this encounter
--- OUTSIDE RECORDS SUMMARY | 2022-09-20 09:59 | XMS_ITS | Encounter Summary ---
:1975 Author Organization [facility] [place] [address] Care Team Providers Name Role Phone Moy Mcnair MD Primary Care Provider Reason for Visit Reason Comments Anxiety Encounter Details Date Type Department Care Team Description 03/06/2011 Office Visit Gastroenterology at [facility] Karl Teixeira Social anxiety [facility] Susan Hill MD disorder ([place] [address] [facility]) [phone] [facility] [address] Social History Tobacco Use Types Packs/Day Years Used Date Smoking Tobacco: Never Assessed Sex Assigned at Date Recorded Not on file documented as of this encounter Last Filed Vital Signs Vital Sign Reading Time Taken Comments Blood Pressure 160/100 03/06/2011 3:55 PM EDT Pulse - - Temperature - - Respiratory Rate - - Oxygen Saturation - - Inhaled Oxygen Concentration - - Weight 91.6 kg (202 lb) 03/06/2011 3:55 PM EDT Height - - Body Mass Index - - documented in this encounter Progress Notes Karl Teixeira MD - 03/06/2011 2:56 PM EDT DIAGNOSTIC INTERVIEW CPT Code 99815; JOANNE 5100 Location: [ x ] Office [ ] ED Time Spent: [ 30] Referral Source: Information Source: [ x] Patient [ ] Family [ ] Other: Additional Attendee(s): Patient was seen with Dr. Karl Teixeira HISTORY: CHIEF COMPLAINT: ???Is feeling this anxious normal? History of Presenting Illness/Status of Chronic Illnesses: 35yo gentleman with a history of hepatitis C due to start treatment today who was referred from Jennifer Vyas APRN for assessment of anxiety. 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 This scared him and he followed up with Dr. Mcnair, his local MD. He was started on blood pressure medication and mirtazapine for anxiety/depression. He feels the mirtazapine has improved his sleep and ???taken the edge off???. He describes his anxiety as tied to social situations: specifically he gives an example of having topresent in front of the board of select[place] in his town as making his anxiety ???shoot through the roof???. He also has mild anxiety when having to initiate conversation in social situations. The other anxiety trigger is coming to the doctor. Until he found out he had hepatitis C last fall, he hadn???tbeen to a doctor since he was a kid, and ???I???m terrified of coming to the doctor???. Prior to this appointment, he noted a progressive discomfort. Most of his feelings of anxiety are linked to thesetypes of social events. He also endorses a vague feeling of depression over the last 7 months since diagnosis and worries about not having work or being able to work. He is sleeping/eating well. No suicidal ideation. Energy is good and doesn???t express any difficulty in concentration. 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 Finally, he reports a ???terrible time??? post liver biopsy with unexpected pain. Understood any discomfort would be gone in a few days, but he actually was in the ED a few days post bx with pain issues. This lasted for about 3 weeks and has now completely resolved. His experience was disturbing enough that he is reluctant to get any other invasive procedures, including a recommended EGD and has decided to ???take control??? of that decision and not proceed with that at this time. Past Psychiatric History and treatment None Past Medical History: 1. Hepatitis C 2. Anxiety 3. Depression 4. Hypertension Current Medications Metoprolol 25mg QD Mirtazapine 15mg HS Percocet prn Allergies None SOCIAL HISTORY : to 2nd . Lives with 2 stepchildren ages 8 and 13. 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 Currentlyunemployed which is another stressor for him. Enjoys staying busy and fly fishing. Does find when hefishes that his mind turns to the other things he could be doing. 5 siblings all healthy. Stopped drinking completely 10/26/10 after researching the negative effects alcohol had on someone with hepatits.Completed high school without any difficulty in school and was in advanced placement classes. FAMILY HISTORY No psychiatric hx EXAMINATION: MUSCULOSKELETAL SYSTEM: Muscle Strength/Tone: WNL. Not formally tested. No abnormal movements notes. Gait and Station: WNL General Appearance/Behavior: Cooperative: [ ] Outgoing [x ] Fully [ ] Minimally [ ] Uncooperative [ ] Hostile Appearance: [ x ] Neat [ ] Normal [ ] Disheveled Hygiene: [ ] Excellent [ x] Good [ ] WNL [ ] Fair [ ] Poor Eye Contact: [ ] Extreme [x ] WNL [ ] Minimal [ ] None PSYCHIATRIC SYSTEM: Speech: Articulate, engaged. Rate: [ ] Pressured [ x ] WNL [ ] Slowed Volume: [ ] Low [x ] WNL [ ] Loud Quality: [ ] Latent [ x ] WNL [ ] Verbose Mood: [ x ] Anxious - mild [ ] Scared [ ] Sad [ ] Happy [ ] Angry Affect: [ ] Flat [ ] Constricted [ x] Full [ ] Labile [ ] Inappropriate [ ] Appropriate Associations: [ ] Loose [ ] Tangential [ ] Circumstantial [x ] Intact Judgment: [x ] WNL [ ] Fair [ ] Poor -- Insight: [ ] Excellent [ ] Good [ ] Fair [ ] Poor Thought Process: [ x ] Logical [ ] Illogical [ ] Tangential [ ] Linear [ ] Abstract Abnormal/Psychotic Thoughts (includes violent thoughts, obsessions): Homicidality (+ or -): Ideation _neg__ Deterrents ___ Plan ___ Intent ___ Suicidality (+ or -): Ideation _neg__ Deterrents ___ Plan ___ Intent ___ Psychosis (+ or -): Hallucinations _neg__ Delusions _neg__ Cognitive Function/Mental Status Exam: Orientation: [x ] Person [ x ] Place [ x] Time [ x] Situation Attention/Concentration: [x ] Alert [ ] Confused [ ] Distractible [ ] Sluggish Memory: Intact Language: Intact Fund of Knowledge: Not formally tested. WNL ASSESSMENT: 35yo gentleman anticipating starting treatment for hepatitis C today expressing social and medical oriented anxiety. Recently started mirtazapine which ???took the edge off???. Anxiety described as event specific more than generalized. DIAGNOSIS: Bynum I 300.23 (Social Anxiety Disorder); Bynum II None Bynum III hepatitis C, HTN Bynum IV Unemployed Bynum V 64 TREATMENT GOALS and PLAN: 1. Anxiety a. Agree with mirtazapine which can help mood and anxiety. He has noticed some improvement on this. Cautious use recommended in hepatic disease. Given his anxiety is event triggered, would not increasethis right now. b. Could consider prn lorazepam if needed in the future or pre-procedure. c. Discussed pharmaceutical options at length including switching to an SSRI, increasing mirtazapineor adding a benzo. Also discussed the possibility that medical oriented anxiety may diminish on its own with repeated exposure. Briefly discussed the option of therapy which he is less interested in. d. Agreed to make no changes today. If anxiety begins to interfere with his day to day enjoyment of life, his ability to participate in life or his personal relationships he knows he should speak up and we can consider medication adjustment. [ x ] Continue current medication(s) [ ] Medication Changes (include rationale for change): [ ] Labs ordered: [ ] Medical issues that require notification of/consultation with another physician: [ ] Referral to another physician: [ ] Referral for additional services: Patient Instruction/Education Provided: [ x] Verbal [ ] Written Patient understands the plan? [ x] Yes [ ] No (explain) Dr. Karl Teixeira was present for this entire encounter and plan of care was developed with his guidance and input. Monica Robles APRN Nurse Practitioner Student documented in this encounter Plan of Treatment Not on filedocumented as of this encounter Visit Diagnoses Diagnosis Social anxiety disorder - Primary Social phobia documented in this encounter Care Teams Planning Consultant Relationship Specialty Start Date End Date Moy Mcnair MD PCP - General 11/04/10 [address] [place] [address] documented as of this encounter
--- OUTSIDE RECORDS SUMMARY | 2022-09-20 09:59 | XMS_ITS | Encounter Summary ---
:1975 Author Organization [facility] Address [address] [place] [address] Care Team Providers Name Role Phone Moy Mcnair MD Primary Care Provider Reason for Referral Radiology Services (Routine) - Closed Specialty Diagnoses / Procedures Referred By Contact Refer red To Contact Diagnoses Cirrhosis of liver without ascites, unspecified hepatic cirrhosis type (HCC-CMS) (HCC) Stefany Tracey MD Procedures RAD US ABDOMEN ONE ORGAN/QUADRANT [address] [facility], [address] [place] [address] Referral ID Status Reason Start Date Expiration Date Visits Requ ested Visits Authorized [id number] Closed 07/16/2015 1 1 Reason for Visit Reason Onset Date Comments Labs Only 07/16/[address] visit on , bloodwork not due until 08/06/15. Should he cancel until after his labs are drawn? Encounter Details Date Type Department Care Team Description 07/16/2015 Telephone [facility] Stefany Tracey La bs Only (Patient Gastroenterology - [facility] MD has dr visit on [place] [address] , bloodwork [facility] not due until [address] 08/06/15. Should he [phone] [facility] 5 cancel until after [place], [place] his labs are drawn?) [id number] (Wo rk) Social History Tobacco Use Types Packs/Day Years Used Date Smoking Tobacco: Never Smokeless Tobacco: Former Alcohol Use Standard Drinks/Week Comments No 0 (1 standard drink = 0.6 oz pure alcoho l) Sex Assigned at Date Recorded Not on file documented as of this encounter Miscellaneous Notes Telephone Encounter - Slime Contreras RN - 07/16/2015 0911 EDT The patient,s follow-up appointment with was changed to after he has his 12 week post HepC treatment drawn ( 08/06/15) and was advised he is due for cirrhosis surveillance ultrasound prior to the new appointment on 10/11/15. He is in agreement & asks that he be sent the order so he mayfind the most affordable location for him. This will be done. documented in this encounter Plan of Treatment Scheduled Orders Name Type Priority Associated Diagnoses Order S chedule RAD US ABDOMEN ONE Imaging Routine Cirrhosis Of Liver Debbie calixto Ordered: 07/16/2015 ORGAN/QUADRANT Ascites, Unspecified Hepatic Cirrhosis Type (Hcc-Cms) (Hcc) documented as of this encounter Visit Diagnoses Diagnosis Cirrhosis of liver without ascites, unsp ecified hepatic cirrhosis type (HCC-CMS) (HCC) - Primary documented in this encounter Care Teams Implementation Director Relationship Specialty Start Date End Date Moy Mcnair MD PCP - General 08/07/11 [address] [place] [address] documented as of this encounter
--- OUTSIDE RECORDS SUMMARY | 2022-09-20 09:59 | XMS_ITS | Encounter Summary ---
:1975 Author Organization [facility] Address [address] [place] [address] Care Team Providers Name Role Phone Moy Mcnair MD Primary Care Provider Reason for Visit Reason Onset Date Comments Medication Management 01/09/2015 Encounter Details Date Type Department Care Team Description 01/09/2015 Telephone [facility] Tremaine Hardin Gastroenterology - Main [facility] [place] [address] [place] [address] Social History Tobacco Use Types Packs/Day Years Used Date Smoking Tobacco: Never Smokeless Tobacco: Former Alcohol Use Standard Drinks/Week Comments No 0 (1 standard drink = 0.6 oz pure alcoho l) Sex Assigned at Date Recorded Not on file documented as of this encounter Miscellaneous Notes Telephone Encounter - Sylvie Hardin RN - 01/09/2015 1017 EDT Letter faxed to [facility] (see under letters tab) from Dr. Tracey. Patient notified documented in this encounter Plan of Treatment Not on filedocumented as of this encounter Visit Diagnoses Not on filedocumented in this encounter Care Teams Retirement Actuary Relationship Specialty Start Date End Date Moy Mcnair MD PCP - General 08/07/11 [address] [place], [place] [id number] documented as of this encounter
--- OUTSIDE RECORDS SUMMARY | 2022-09-20 09:59 | XMS_ITS | Clinical Summary ---
:1975 Author Organization [facility] [place] [address] Care Team Providers Name Role Phone Moy Mcnair MD Primary Care Provider Allergies Active Allergy Reactions Severity Noted Date Comments Emollient Combination No.33 Isopropyl Myristate Mineral Oil Petrolatum,White Soap Water Medications Medication Sig Dispensed Refills Start Date End Date Status metoprolol tartrate 0 01/01/2011 Active (LOPRESSOR) 25 mg tablet mirtazapine (REMERON) 15 0 01/01/2011 Active mg tablet PREDNISONE ORAL 60mg, PO, Once 0 01/01/2011 Active daily OXYCODONE 0 01/01/2011 Active HCL/ACETAMINOPHEN (PERCOCET ORAL) Peginterferon Otis-2a 180 MCG/0.5 ML, 0 01/01/2011 Active 180 mcg/0.5 mL Kit SQ, QWEEK ribavirin (COPEGUS) 200 600 MG = 3 0 01/01/2011 Active mg tablet Tablet(s), PO, Twice daily Active Problems Problem Noted Date Social anxiety disorder 03/06/2011 Social History Tobacco Use Types Packs/Day Years Used Date Smoking Tobacco: Never Assessed Sex Assigned at Date Recorded Not on file Last Filed Vital Signs Vital Sign Reading Time Taken Comments Blood Pressure 160/100 03/06/2011 3:55 PM EDT Pulse - - Temperature - - Respiratory Rate - - Oxygen Saturation - - Inhaled Oxygen Concentration - - Weight 91.6 kg (202 lb) 03/06/2011 3:55 PM EDT Height - - Body Mass Index - - Plan of Treatment Health Maintenance Due Date Last Done Comments Hepatitis B vaccine (0-59 yrs) (1 of 3 - 3-dose 1975 series) Covid-19 Vaccine (#1) 05/24/1975 HIV screen 1992 Lipid Screening 1992 Tdap adult 1993 Tetanus vaccine 1993 Colonoscopy 2019 Influenza (Flu) vaccine (1 of 1 - Influenza standard 06/26/2022 series) Hepatitis C Screening Completed 01/01/2011 Care Teams Eligibility Manager Relationship Specialty Start Date End Date Moy Mcnair MD PCP - General 11/04/10 [address] [place] [address]
--- OUTSIDE RECORDS SUMMARY | 2022-09-20 09:59 | XMS_ITS | Encounter Summary ---
:[address] [facility] Address [address] [place] [address] Care Team Providers Name Role Phone Moy Mcnair MD Primary Care Provider Reason for Visit Reason Onset Date Comments Results 02/08/2014 Encounter Details Date Type Department Care Team Description 02/08/2014 Telephone [facility] Slime Contreras RN [address] [address] Social History Tobacco Use Types Packs/Day Years Used Date Smoking Tobacco: Never Smokeless Tobacco: Former Alcohol Use Standard Drinks/Week Comments No 0 (1 standard drink = 0.6 oz pure alcoho l) Sex Assigned at Date Recorded Not on file documented as of this encounter Miscellaneous Notes Telephone Encounter - Slime Contreras RN - 02/08/2014 6567 EDT A message was left for the patient with results of today,s bloodwork for week #3 of triple therapy (interferon 135mcg/ribavirin 1200mg/sovaldi 400mg ). Per ( covering for ) he was advised to remain on current doses of these medications & repeat bloodwork in 1 week. documented in this encounter Plan of Treatment Not on filedocumented as of this encounter Visit Diagnoses Not on filedocumented in this encounter Care Teams Federal Mediator Relationship Specialty Start Date End Date Moy Mcnair MD PCP - General 08/07/11 [address] [place] [address] documented as of this encounter
--- OUTSIDE RECORDS SUMMARY | 2022-09-20 09:59 | XMS_ITS | Encounter Summary ---
:1975 Author Organization [facility] [place] [address] Care Team Providers Name Role Phone Moy Mcnair MD Primary Care Provider Encounter Details Date Type Department Care Team Description 01/01/2011 Hospital Encounter [facility] Mem[facility] Cort[facility] [place] [address] GASTROENTEROLOGY [phone] [place]PT. [place] [id number] (Wo rk) Social History Tobacco Use Types Packs/Day Years Used Date Smoking Tobacco: Never Assessed Sex Assigned at Date Recorded Not on file documented as of this encounter Medications at Time of Discharge Medication Sig Dispensed Refills Start Date End Date metoprolol tartrate 0 01/01/2011 (LOPRESSOR) 25 mg tablet mirtazapine (REMERON) 15 mg 0 01/02/20 11 tablet PREDNISONE ORAL 60mg, PO, Once 0 01/01/2011 daily OXYCODONE HCL/ACETAMINOPHEN 0 01/02/20 11 (PERCOCET ORAL) Peginterferon Otis-2a 180 180 MCG/0.5 ML, SQ, 0 0 01/01/2011 mcg/0.5 mL Kit QWEEK ribavirin (COPEGUS) 200 mg 600 MG = 3 0 1 tablet Tablet(s), PO, Twice daily documented as of this encounter Plan of Treatment Not on filedocumented as of this encounter Visit Diagnoses Not on filedocumented in this encounter Care Teams Compensation Expert Relationship Specialty Start Date End Date Moy Mcnair MD PCP - General 11/04/10 [address] [place] [address] documented as of this encounter
--- OUTSIDE RECORDS SUMMARY | 2022-09-20 09:59 | XMS_ITS | Encounter Summary ---
:1975 Author Organization [facility] Address [address] [place] [address] Care Team Providers Name Role Phone Moy Mcnair MD Primary Care Provider Reason for Visit Reason Onset Date Comments Other 04/02/2015 Encounter Details Date Type Department Care Team Description 04/02/[address] [facility] Slime Contreras RN Ot her Gastroenterology - [facility] [address] [place] [address] Social History Tobacco Use Types Packs/Day Years Used Date Smoking Tobacco: Never Smokeless Tobacco: Former Alcohol Use Standard Drinks/Week Comments No 0 (1 standard drink = 0.6 oz pure alcoho l) Sex Assigned at Date Recorded Not on file documented as of this encounter Miscellaneous Notes Telephone Encounter - Slime Contreras RN - 04/02/2015 0823 EDT The patient called to confirm it was okay to delay any further bloodwork until the end of tx. This was confirmed in ,s last visit note, the patient has lab slips for week # 24 blood draw due approx 05/17/15.He verbalized understanding & compliance. documented in this encounter Plan of Treatment Not on filedocumented as of this encounter Visit Diagnoses Not on filedocumented in this encounter Care Teams Furniture Reproducer Relationship Specialty Start Date End Date Moy Mcnair MD PCP - General 08/07/11 [address] [place], [place] [id number] documented as of this encounter
--- OUTSIDE RECORDS SUMMARY | 2022-09-20 09:59 | XMS_ITS | Encounter Summary ---
:1975 Author Organization [facility] Address [address] [place] [address] Care Team Providers Name Role Phone Moy Mcnair MD Primary Care Provider Reason for Visit Reason Onset Date Comments Labs Only 08/03/2015 Encounter Details Date Type Department Care Team Description 08/03/2015 Telephone [facility] Gastroenterology Cathy Stewart, RN Labs Only - Main [place] [address] [place] [address] Social History Tobacco Use Types Packs/Day Years Used Date Smoking Tobacco: Never Smokeless Tobacco: Former Alcohol Use Standard Drinks/Week Comments No 0 (1 standard drink = 0.6 oz pure alcoho l) Sex Assigned at Date Recorded Not on file documented as of this encounter Miscellaneous Notes Telephone Encounter - Cathy Stewart RN - 08/03/2015 1037 EDT Lab order for Hep C PCR faxed to [facility] at [phone] per patient request. documented in this encounter Plan of Treatment Not on filedocumented as of this encounter Visit Diagnoses Not on filedocumented in this encounter Care Teams Lead Based Paint Technician Relationship Specialty Start Date End Date Moy Mcnair MD PCP - General 08/07/11 [address] [place], [place] [id number] documented as of this encounter
--- OUTSIDE RECORDS SUMMARY | 2022-09-20 09:59 | XMS_ITS | Encounter Summary ---
:1975 Author Organization [facility] Address [address] [place] [address] Care Team Providers Name Role Phone Moy Mcnair MD Primary Care Provider Encounter Details Date Type Department Care Team Description 11/26/2018 Hospital Encounter [facility] Stefany Tracey ea, Endoscopy [facility] [address] [address] [place], [place] [phone] (Wo rk) Social History Tobacco Use Types [...] making decisions? documented as of this encounter Medications at Time of Discharge Medication Sig Dispensed Refills Start Date End Date carvedilol (COREG) 12.5 mg Take 1 Tab by mouth 60 Tab 5 06/23/2016 tablet 2 times daily. FLUoxetine (PROZAC) 20 mg Take 20 mg by mouth 0 capsule daily. ledipasvir-sofosbuvir Take 1 Tab by mouth 28 Tab 5 11/16 90-400 mg tablet daily. mirtazapine (REMERON) 45 mg Take 1 Tab by mouth 30 Tab 2 10/20/2012 tablet daily. multivitamin (THERAGRAN) Take 1 Tab by mouth 0 per tablet daily. documented as of this encounter Discharge Disposition Disposition Code Departure Means Destination Home or Self Retirement documented in this encounter Plan of Treatment Not on filedocumented as of this encounter Visit Diagnoses Not on filedocumented in this encounter Care Teams Cat Swamper Relationship Specialty Start Date End Date Moy Mcnair MD PCP - General 08/07/11 [address] [place] [address] documented as of this encounter
--- OUTSIDE RECORDS SUMMARY | 2022-09-20 09:59 | XMS_ITS | Encounter Summary ---
:1975 [place] [address] Care Team Providers Name Role Phone Moy Mcnair MD Primary Care Provider Encounter Details Date Type Department Care Team Description 01/01/2011 Follow-Up Gastroenterology at [facility] Radha Vyas APRN [facility] Susan [facility] [place] [address] GASTROENTEROLOGY [phone] DEPT. [place], [place] [address] Social History Tobacco Use Types Packs/Day Years Used Date Smoking Tobacco: Never Assessed Sex Assigned at Date Recorded Not on file documented as of this encounter Plan of Treatment Not on filedocumented as of this encounter Procedures Procedure Name Priority Date/Time Associated Comments Diagnosis HCV GENOTYPE Routine 01/01/2011 9:55 AM Results f or this EST procedure are i n the results section. HCV QUANT Routine 01/01/2011 9:55 AM Results f or this EST procedure are i n the results section. DIFFERENTIAL, Routine 01/01/2011 9:55 AM Results for this AUTOMATED EST procedure are i n the results section. AFP TUMOR MARKER Routine 01/01/2011 9:55 AM Resul ts for this EST procedure are i n the results section. PROTHROMBIN TIME Routine 01/01/2011 9:55 AM Resul ts for this EST procedure are i n the results section. CBC (WITH DIFF) Routine 01/01/2011 9:55 AM Result s for this EST procedure are i n the results section. COMPREHENSIVE Routine 01/01/2011 9:55 AM Results for this METABOLIC PANEL EST procedure ar e in (NON-FASTING) the results section. documented in this encounter Results REFLEX LAB-A-DIFF (01/01/2011 9:55 AM EST) P athologist Signature Neutrophils % 67.1 34.0 - CERNER 71.0 % MILLENNIUM Neutr Abs (ANC) 3.58 1.50 - CERNER 6.30 MILLENNIUM x10(3)/mcL Lymphocytes % 22.7 19.0 - CERNER 53.0 % MILLENNIUM Lymphocytes Abs 1.2 1.0 - 3.6 CERNER x10(3)/mcL MILLENNIUM Monocytes % 8.1 4.0 - 13.0 CERNER % MILLENNIUM Monocyte Abs 0.4 0.2 - 1.0 CERNER x10(3)/mcL MILLENNIUM Eosinophils % 1.5 0.0 - 7.0 CERNER % MILLENNIUM Eosinophils Abs 0.1 0.0 - 0.5 CERNER x10(3)/mcL MILLENNIUM Basophils % 0.4 0.0 - 2.0 CERNER % MILLENNIUM Basophils Abs 0.0 0.0 - 0.2 CERNER x10(3)/mcL MILLENNIUM Immature Gran % 0.20 0.00 - CERNER [...] Location / / Volume Laterality Blood specimen 01/01/2011 9:55 AM 011 9:59 (specimen) EST AM EST Radha Vyas APRN HEMATOLOGY ORDERABLES Performing Organization Address City/State/ZIP [place] [address] [facility] REFLEX LAB-HCV GENOTYPE (01/01/2011 9:55 AM EST) Component Value Ref Test Analysis Performed At Patholo gist Range Method Time Signature HCV Genotype Indication for study CERNER Hepatitis C Infection [facility] Result 1a Interpretation The result of this analysis has identified the presence of ??genotype 1a in the submitted specimen. Genotypes 1a and 1b are the most c ommon genotypes in the [place] and are generally associated with a poor response to tr eatment with interferon and ribavirin. Genotypes 2 and 3 are typically associated with a more favorable response. Analysis A reverse transcriptase-PCR line probe a ssay (LiPA) was performed on extracted viral RNA for the purpose of identifying the HCV genotype. Method SmartExposee HCV Genotype LiPA. Random primers are used i n a reverse transcriptase reaction to create cDNA that is generated fr om viral RNA. The cDNA is then amplified by PCR using biotinylated primers directed against the 5'-untranslated region of the HCV genome . Amplified products are hybridized to genotype specific probes and detected in a colorimetric reac tion. Genotype classifications will be repo rted as 1a, 1b, 1, 2a/2c, 2b, 2, 3a, 3b, 3c, 3, 4a, 4b, 4c/4d, 4e, 4f, 4h, 5a, or 6a. Comment: [VERIFIED DATE]01.09.11 Verified By:Angela Hoover (Electronic Signature) Specimen Anatomical Collection Method Collection Time Receive d Time (Source) Location / / Volume Laterality Blood specimen 01/01/2011 9:55 AM 011 9:25 (specimen) EST AM EST Radhacali Vyas BATSHEVA HEMATOLOGY ORDERABLES Performing Organization Address City/State/[place] [address] [facility] REFLEX LAB-HCV QUANT (01/01/2011 9:55 AM EST) Component Value Ref Test Analysis Performed At [facility] Range Method Time Signature HCV Viral [id number] IU/mL [facility] HCV Viral Result: [id number] [facility] Indication for Study: Hepatitis C Infection Analysis: A quantitiative real time reverse transcriptase PC R assay was performed on extracted viral RNA for the purpose of quantifi cation. Sample: plasma (0.5 mL minimun volume) Method: Jhon Hannah TaqMAN 48 HCV Linear Range: 43IU/mL - 69,000,000IU/mL (95% CI) Interpretation: The result of this analysis is w ithin the limits of detection of the assay. Note: This assay is being pe rformed in the [facility] Molecular Pathology Laboratory. Aamir Rolon, Ph.D. Director, Molecular Pathology Comment: [VERIFIED DATE]01.06.11 Verified By:Angela Hoover (Electronic Signature) Specimen Anatomical Collection Method Collection Time Receive d Time (Source) Location / / Volume Laterality Blood specimen 01/01/2011 9:55 AM 011 9:25 (specimen) EST AM EST Radha Quigley Ray BUSINESS SERVICES TECH HEMATOLOGY ORDERABLES Performing Organization Address City/[facility]/[place] [address] CERNER MILLENNIUM (ABNORMAL) AFP TUMOR MARKER (01/01/2011 9:55 AM EST) P athologist Signature AFP 84 (H) <=19 ng/mL [facility] Specimen Anatomical Collection Method Collection Time Receive d Time (Source) Location / / Volume Laterality Blood specimen 01/01/2011 9:55 AM 011 (specimen) EST 12:04 PM EST Radha Vyas APRN CHEMISTRY ORDERABLES Performing Organization Address City/[facility]/[place] [address] CERNER MILLENNIUM PROTHROMBIN TIME (01/01/2011 9:55 AM EST) athologist Signature PT 13.5 12.3 - 14.7 CERNER sec MILLENNIUM Comment: [facility] Transfusion Committee Guidelines: I NR less than 2.0, PTT less than OR equal to 43.5 seconds, or Fibrinogen gre ater than or equal to 100 mg/dl indicate adequate procoagulant activity for hemostasis in patients without underlying bleeding disorders. INR 1.0 0.9 - 1.1 CERNER GrabTaxiENNIUM Specimen Anatomical Collection Method Collection Time Receive d Time (Source) Location / / Volume Laterality Blood specimen 01/01/2011 9:55 AM 011 9:59 (specimen) EST AM EST Radha A Ray BUSINESS SERVICES TECH HEMATOLOGY ORDERABLES Performing Organization Address City/[facility]/ZIP Code Phon e Number [facility] [place] [address] CERNER MILLENNIUM (ABNORMAL) CBC (WITH DIFF) (01/01/2011 9:55 AM EST) athologist Signature WBC 5.3 4.0 - 10.0 CERNER x10(3)/mcL MILLENNIUM RBC 4.85 4.63 - CERNER 6.08 MILLENNIUM x10(6)/mcL Hemoglobin 16.1 13.7 - CERNER 17.5 gm/dL MILLENNIUM Hematocrit 44.9 40.0 - CERNER 51.0 % MILLENNIUM MCV 92.6 (H) 79.0 - CERNER 92.0 fL MILLENNIUM MCH 33.2 (H) 25.6 - CERNER 32.2 pg MILLENNIUM MCHC 35.9 32.0 - CERNER 36.5 gm/dL MILLENNIUM Platelets 106 (L) 145 - 370 CERNER x10(3)/mcL MILLENNIUM RDWSD 41.1 35.0 - CERNER 46.0 fL MILLENNIUM RDWCV 12.3 10.9 - CERNER 14.4 % MILLENNIUM MPV 11.6 9.0 - 12.0 CERNER fL MILLENNIUM Specimen Anatomical Collection Method Collection Time Receive d Time (Source) Location / / Volume Laterality Blood specimen 01/01/2011 9:55 AM 011 9:59 (specimen) EST AM EST Radha Vyas APRN HEMATOLOGY ORDERABLES Performing Organization Address City/State/ZIP Code Phon e Number [address] CERNER MILLENNIUM (ABNORMAL) COMPREHENSIVE METABOLIC PANEL (NON-FASTING) (01/01/2011 9:55 AM EST) athologist Signature Glucose Lvl 105 60 - 199 CERNER mg/dL MILLENNIUM Comment: Diabetes: >=200 mg/dL plus symp toms BUN 15 10 - 20 mg/dL CERNER MILLENNIU M Creatinine 0.77 (L) 0.80 - 1.50 mg/dL CERNER MILL ENNIUM Sodium 139 135 - 145 mmol/L CERNER SABINO NIUM Potassium 4.1 3.5 - 5.0 mmol/L CERNER SABINO NIUM Comment: Please note: ??Patients with WBC >100,00 0 may have falsely elevated Potassium levels. ??For accurate Potassium quantif ication in these patients send serum separator tube (gold top) for subsequent determinations. ??Contact the Clinical Chemistry Laboratory if there are any qu estions. Chloride 104 98 - 107 mmol/L CERNER MILLENN IUM CO2 25 22 - 31 mmol/L CERNER MILLENNI UM Anion Gap 10 5 - 15 mmol/L CERNER MILLENNIU M Calcium 9.1 8.5 - 10.5 mg/dL CERNER SABINO NIUM Total Protein 7.9 6.4 - 8.3 gm/dL CERNER MIL LENNIUM Albumin 3.6 3.2 - 5.2 gm/dL CERNER MILLENN IUM AST 123 (H) 0 - 39 unit/L CERNER MILLENNIU M ALT 110 (H) 0 - 55 unit/L CERNER MILLENNIU M Alk Phos 133 (H) 40 - 120 unit/L CERNER MILLENN [...] Location / / Volume Laterality Blood specimen 01/01/2011 9:55 AM 011 9:59 (specimen) EST AM EST Radha Vyas APRN CHEMISTRY ORDERABLES Performing Organization Address City/State/ZIP Code Phon e Number [address] [facility] documented in this encounter Visit Diagnoses Not on filedocumented in this encounter Care Teams Glue Wheel Operator Relationship Specialty Start Date End Date Moy Mcnair MD PCP - General 11/04/10 [address] [place] [address] documented as of this encounter
--- OUTSIDE RECORDS SUMMARY | 2022-09-20 09:59 | XMS_ITS | Encounter Summary ---
:[address] [facility] Address [address] [place] [address] Care Team Providers Name Role Phone Moy Mcnair MD Primary Care Provider Reason for Referral Radiology Services (Routine) - Closed Specialty Diagnoses / Procedures Referred By Contact Refer red To Contact Diagnoses Cirrhosis of liver without ascites, unspecified hepatic cirrhosis type (HCC-CMS) (HCC) Stefany Tracey MD Procedures RAD US ABDOMEN ONE ORGAN/QUADRANT [address] [phone] Referral ID Status Reason Start Date Expiration Date Visits Requ ested Visits Authorized [id number] Closed 10/11/2015 1 1 Reason for Visit Reason Comments Follow-up ray crystal completed 05/21/15 Encounter Details Date Type Department Care Team Description 10/11/2015 Office Visit [facility] Stefany Tracey History of hepatitis C (Primary Dx); Gastroenterology - Jeovany Alva MD Cirrhosis of liver without ascites, unsp ecified hepatic cirrhosis type (CMS-HCC) [place] [address] [place] [address] [phone] [address] Social History Tobacco Use Types Packs/Day Years Used Date Smoking Tobacco: Never Smokeless Tobacco: Former Alcohol Use Standard Drinks/Week Comments No 0 (1 standard drink = 0.6 oz pure alcoho l) Sex Assigned at Date Recorded Not on file documented as of this encounter Last Filed Vital Signs Vital Sign Reading Time Taken Comments Blood Pressure 138/90 10/11/2015 1450 EST Pulse 64 10/11/2015 1450 EST Temperature - - Respiratory Rate - - Oxygen Saturation - - Inhaled Oxygen Concentration - - Weight 110.2 kg (243 lb) 10/11/2015 1450 EST Height 172.7 cm (5' 8) 10/11/2015 1450 EST Body Mass Index 36.95 10/11/2015 1450 EST documented in this encounter Functional Status Functional [...] making decisions? documented as of this encounter Discharge Diagnoses Diagnosis Z86.19 Personal history of other infecti ous and parasitic diseases-Z86.19[ICD-10-CM] K74.60 Unspecified cirrhosis of liver-K7 4.60[ICD-10-CM] documented in this encounter Discharge Disposition Disposition Code Departure Means Destination Auto Discharge documented in this encounter Progress Notes Stefany Tracey MD - 10/11/2015 1451 EST Mr. Freeman is a 39yo obese man with HCV genotype 1a s/p relapse with PegIFN/riba, and cure after 24 weeks of Harvoni with undetectable HCV RNA at weeks 4, 12, and 24 and 12 weeks post-cessation of treatment, presenting for scheduled clinic follow up without complaints. He reports occasional QUINTANILLA during t herapy, but no other side effects. Exam: Well-developed, well-nourished obese male in no acute distress. Heent: anicteric, neck supple, no adenopathy. Lungs: clear. Heart: regular rate and rhythm. Abdomen: soft, nontender, +BS, no masses. Extremities: without cyanosis, clubbing or edema. Lab: Lab Results Component Value Date AST 147* 04/21/2013 ALT 139* 04/21/2013 TBIL 1.6* 04/21/2013 ALKPHOS 218* 04/21/2013 LABALBU 3.5 04/21/2013 [facility] (08/06/15) HCV RNA: undetected AST: 59 ALT: 61 Alkaline phosphatase:195 Total bilirubin: 1.1 INR: 1.2 Platelet count: 72 Abdominal US (10/08/15): Findings consistent with hepatic cirrhosis. Mild splenomegaly. Impression: 1. Compensated cirrhosis s/p cure of HCV Mr. Freeman has stable cirrhosis and evidence of cure of HCV 12 weeks after cessation of therapy with Harvoni. We discussed the fact that cure is not immunity necessitating continued efforts to avoid reinfection. Likewise, cure does not necessarily melt away damage already done to the liver, therefore surveillance imaging is required. Mr. Freeman is advised to attempt weight loss as AST/ALT values arelikely elevated due to obesity and NAFLD. We discussed strategies for slow and sustained weight lossincluding a goal of 1lb per month, portion control, salt restriction (which would prevent fluid overload in patients with cirrhosis) and exercise. Plan: 1. Liver panel and abdominal US in 6 months 2. Continue efforts at weight control, good control of BP, cholesterol and glucose 3. 2g sodium restricted diet 4. HCV RNA in 1 year 5. Follow up in 6 months documented in this encounter Plan of Treatment Scheduled Orders Name Type Priority Associated Diagnoses Order S chedule RAD US ABDOMEN ONE Imaging Routine Cirrhosis of liver lizabeth calixto Ordered: 10/11/2015 ORGAN/QUADRANT ascites, unspecified hepatic cirrhosis type (CMS-HCC) documented as of this encounter Visit Diagnoses Diagnosis History of hepatitis C - Primary Personal history of other infectious and parasitic disease Cirrhosis of liver without ascites, unsp ecified hepatic cirrhosis type (HCC-CMS) (HCC) documented in this encounter Care Teams Welding Machine Assembler Relationship Specialty Start Date End Date Moy Mcnair MD PCP - General 08/07/11 [address] [place] [address] documented as of this encounter
--- OUTSIDE RECORDS SUMMARY | 2022-09-20 09:59 | XMS_ITS | Encounter Summary ---
:[address] [facility] Address [address] [place] [address] Care Team Providers Name Role Phone Moy Mcanir MD Primary Care Provider Reason for Referral Referral (Routine) - Closed Specialty Diagnoses / Referred By Contact Referred To Contact Procedures Gastroenterology and Diagnoses Other cirrhosis of liver (HCC) Stefany Tracey [place]rader, Doris Bea, Hepatology Procedures UPPER ENDOSCOPY REQUEST MD BEDOLLA [address] vera [address] [phone] Fax: Referral ID Status Reason Start Date Expiration Date Visits Requ ested Visits Authorized [id number] Closed 09/10/2018 09/10/2018 1 1 adiology Services (Routine) - New Request Specialty Diagnoses / Procedures Referred By Contact Refer red To Contact Diagnoses Other cirrhosis of liver (HCC) Stefany Tracey MD Procedures RAD US ABDOMEN ONE ORGAN/QUADRANT [address] [place] [phone] Referral ID Status Reason Start Date Expiration Date Visits V isits Requested Authorized [id number] New Request 12/03/2017 1 1 Reason for Visit Reason Comments Follow-up 6 MONTH F/U HEP C Encounter Details Date Type Department Care Team Description 12/03/2017 Office Visit [facility] Stefany Tracey irrhosis of Gastroenterology - [facility] MD Nida liver (CMS-HCC) [address] ([facility]) (Primary [address] [place] [address] Dx) [place], [place] [id number] [place] [address] [address], [address] [place] [id number] Social History Tobacco Use Types Packs/Day Years Used Date Smoking Tobacco: Never Smokeless Tobacco: Former Alcohol Use Standard Drinks/Week Comments No 0 (1 standard drink = 0.6 oz pure alcoho l) Sex Assigned at Date Recorded Not on file documented as of this encounter Last Filed Vital Signs Vital Sign Reading Time Taken Comments Blood Pressure 130/70 12/03/2017 1310 EST Pulse 64 12/03/2017 1310 EST Temperature - - Respiratory Rate - - Oxygen Saturation - - Inhaled Oxygen Concentration - - Weight 100.1 kg (220 lb 9.6 oz) 12/03/2017 1310 EST Height 177.8 cm (5' 10) 12/03/2017 1310 EST Body Mass Index 31.65 12/03/2017 1310 EST documented in this encounter Functional Status [...] encounter Progress Notes Stefany Tracey MD - 12/03/2017 1320 EST Mr. 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 Exam: Well-developed, well-nourished obese male in no acute distress. Heent: anicteric, neck supple, no adenopathy. Lungs: clear. Heart: regular rate and rhythm. Abdomen: soft, nontender, +BS, no masses. Extremities: without cyanosis or clubbing ; 1+ edema. Lab: Lab Results Component Value Date AST 147 (H) 04/21/2013 ALT 139 (H) 04/21/2013 TBIL 1.6 (H) 04/21/2013 ALKPHOS 218 (H) 04/21/2013 LABALBU 3.5 04/21/2013 [facility] (12/01/17) Sodium: 140 Creatinine: 0.81 AST: 47 ALT: 40 Total bilirubin: 0.73 Alkaline phosphatase: 86 Platelet count: 101 INR: 1.1 HCV RNA: undetected Abdominal US (11/30/17) Impression: hepatosplenomegaly; contour of the liver suggestive of cirrhosis; no hepatic mass is seen Impression: 1. Cirrhosis secondary to alcohol abuse (abstinent) and HCV (cured with Harvoni) Mr. Freeman is an obese man with cirrhosis secondary alcohol abuse (abstinent) and HCV (recently cured after 12 weeks of Harvoni therapy) presenting for scheduled follow up without complaints. He has 'normal' aminotransferases, no masses on hepatic imaging and is up to date with varices surveillance. On physical examination, only 1+ pitting edema to mid-manrique is noted. Mr. Freeman reports his leg swelling resolves after resting and endorses continued adherence to salt restriction. Will continue to monitor his physical exam, biochemical tests and abdominal imaging. If peripheral edema is noted at nextvisit, will consider beginning low-dose diuretics. Plan: 1. Liver panel, chem panel, INR, abdominal US in 6 months 2. Surveillance EGD in July 2018 3. Follow up in 6 months documented in this encounter Plan of Treatment Scheduled Orders Name Type Priority Associated Diagnoses Order S chedule RAD US ABDOMEN ONE Imaging Routine Other cirrhosis of eric er Ordered: 12/03/2017 ORGAN/QUADRANT (CMS-HCC) UPPER ENDOSCOPY REQUEST GI Routine Other cirrhosis o f liver Ordered: 12/03/2017 (CMS-HCC) documented as of this encounter Visit Diagnoses Diagnosis Other cirrhosis of liver (HCC) - Primary documented in this encounter Care Teams Veterinary Livestock Inspector Relationship Specialty Start Date End Date Moy Mcnair MD PCP - General 08/07/11 [address] [place] [address] documented as of this encounter
--- OUTSIDE RECORDS SUMMARY | 2022-09-20 09:59 | XMS_ITS | Encounter Summary ---
:1975 Author Organization [facility] [place] [address] Care Team Providers Name Role Phone Moy Mcnair MD Primary Care Provider Reason for Visit Reason Comments Anxiety Encounter Details Date Type Department Care Team Description 03/06/2011 [place] [facility] [place]ha Vyas, Chronic hepatitis C [facility] Susan bernstein [place] [address] [facility] hepatic coma (Primary [phone] Contreras) GASTROENTEROLOGY DEPT. [place], [place] [address] Social History Tobacco Use Types Packs/Day Years Used Date Smoking Tobacco: Never Assessed Sex Assigned at Date Recorded Not on file documented as of this encounter Last Filed Vital Signs Vital Sign Reading Time Taken Comments Blood Pressure 160/100 03/06/2011 2:14 PM EDT Pulse - - Temperature - - Respiratory Rate - - Oxygen Saturation - - Inhaled Oxygen Concentration - - Weight 91.6 kg (202 lb) 03/06/2011 2:14 PM EDT Height - - Body Mass Index - - documented in this encounter Progress Notes Radha Vyas APRN - 03/06/2011 3:14 PM EDT Subjective: Patient ID: Timi Freeman is a 35 y.o. male. HPI Mr. Freeman is a 34 year old male who was diagnosed with Hepatitis C in 2010. He has genotype 1 with a CC allele on his [place] 28 B testing. His risk factors for viral acquisition include intranasal drugs 1993 candy, he denies IVD, denies blood transfusion, denies tattoo's or piercing. He does not have any known hepatitis C contacts. 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 Hehad a recent biopsy which showed cirrhosis and he complains of pain since the biopsy. He went to the ED and had a CT scan and labs which were normal. The pain is slowly resolving, he has not had to take pain meds today but he continues to have discomfort when he laughs or takes a deep breath. His CT did not reveal a hematoma and no free abdominal fluid, and no focal liver lesions. His spleenwas mildly enlarged and he had a nodular contour to the liver. He denies gi tract bleeding. He is slowly getting used to the idea of having cirrhosis. He continues to struggle with thoughts about the worst case scenario and this has prevented him from being able to move forward with testing. He now agrees to schedule his EGD and plan for Interferon treatment in the fall. Labs: 10/21/2010 HCV RNA 1,610,000 iu genotype 1a iron 230 IBC 137 transferrin 168% Hep B sab 29 Hep B sag neg Hep B cab neg ferritin 1016 HFE testing neg C282Y, one copy H63D Liver biopsy: Fragments of cirrhotic liver parenchyma (Stage 4/4) with ongoing septal and lobular necroinflammatory activity consistent with Grade 2/4. Mild (1+) iron deposition is present within hepatocytes and Kupffer cells. There is no evidence of significant steatosis. Review of Systems Constitutional: Negative for fever, chills and fatigue. Respiratory: Negative for cough and shortness of breath. Gastrointestinal: Negative for nausea, vomiting, abdominal pain and diarrhea. Objective: Physical Exam Constitutional: He appears well-developed and well-nourished. HENT: Head: Normocephalic and atraumatic. Cardiovascular: Normal rate and regular rhythm. Exam reveals no gallop and no friction rub. No murmur heard. Pulmonary/Chest: Breath sounds normal. Abdominal: Soft. There is no hepatosplenomegaly. Skin: Skin is warm and dry. Psychiatric: He has a normal mood and affect. Assessment and Plan: 1. Cirrhosis, will schedule EGD after he completes his dental work, as he feels he cannot proceed with EGD until his dental issues are addressed. He will then also complete the steps necessary to initiate Interferon, Ribavirin and protease inhibitor treatment in the fall. He is opting to get treating at that time due to a work situation. 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 documented in this encounter Plan of Treatment Not on filedocumented as of this encounter Procedures Procedure Name Priority Date/Time Associated Comments Diagnosis DIFFERENTIAL, Routine 03/06/2011 4:48 PM Results for this AUTOMATED EDT procedure are i n the results section. AFP TUMOR MARKER Routine 03/06/2011 4:48 PM Chronic hepatitis C Results for this EDT without mention of procedure are in hepatic coma the results section. PROTHROMBIN TIME Routine 03/06/2011 4:48 PM Chronic hepatitis C Results for this EDT without mention of procedure are in hepatic coma the results section. CBC (WITH DIFF) Routine 03/06/2011 4:48 PM Chronic hepatitis C Results for this EDT without mention of procedure are in hepatic coma the results section. COMPREHENSIVE Routine 03/06/2011 4:48 PM Chronic hepatitis C R esults for this METABOLIC PANEL EDT without mention of proced ure are in (NON-FASTING) hepatic coma the results section. documented in this encounter Results (ABNORMAL) REFLEX LAB-A-DIFF (03/06/2011 4:48 PM EDT) [facility] Method Time Signature Neutrophils % 75.7 (H) 34.0 - CERNER 71.0 % MILLENNIUM Neutr Abs (ANC) 4.72 1.50 - CERNER 6.30 MILLENNIUM x10(3)/mc L Lymphocytes % 18.1 (L) 19.0 - CERNER 53.0 % MILLENNIUM Lymphocytes Abs 1.1 1.0 - 3.6 CERNER x10(3)/mc MILLENNIUM L Monocytes % 5.6 4.0 - CERNER 13.0 % MILLENNIUM Monocyte Abs 0.4 0.2 - 1.0 CERNER x10(3)/mc MILLENNIUM L Eosinophils % 0.2 0.0 - 7.0 CERNER % MILLENNIUM Eosinophils Abs 0.0 0.0 - 0.5 CERNER x10(3)/mc MILLENNIUM L Basophils % 0.2 0.0 - 2.0 CERNER % MILLENNIUM Basophils [...] Location / / Volume Laterality Blood specimen 03/06/2011 4:48 PM 011 4:54 (specimen) EDT PM EDT Finn Iqbal MD HEMATOLOGY ORDERABLES Performing Organization Address City/[facility]/ZIP [facility] [place] [address] [facility] [facility] MILLENNIUM (ABNORMAL) AFP tumor marker (03/06/2011 4:48 PM EDT) P athologist Signature AFP 77 (H) <=19 ng/mL CERNER [facility] Specimen Anatomical Collection Method Collection Time Receive d Time (Source) Location / / Volume Laterality Blood specimen 03/06/2011 4:48 PM 011 8:33 (specimen) EDT AM EDT Finn Iqbal MD CHEMISTRY ORDERABLES Performing Organization Address City/[facility] Phon e Number [address] [facility] MILLENNIUM Prothrombin Time (03/06/2011 4:48 PM EDT) P athologist Signature PT 14.1 12.3 - 14.7 CERNER sec MILLENNIUM Comment: [facility] Transfusion Committee Guidelines: I NR less than 2.0, PTT less than OR equal to 43.5 seconds, or Fibrinogen gre ater than or equal to 100 mg/dl indicate adequate procoagulant activity for hemostasis in patients without underlying bleeding disorders. INR 1.1 0.9 - 1.1 CERNER MILLENNIUM Specimen Anatomical Collection Method Collection Time Receive d Time (Source) Location / / Volume Laterality Blood specimen 03/06/2011 4:48 PM 011 4:54 (specimen) EDT PM EDT Finn Iqbal MD HEMATOLOGY ORDERABLES Performing Organization Address City/State/ZIP Code Phon e Number [place] [phone] CERNER MILLENNIUM (ABNORMAL) Comprehensive metabolic panel (non-fasting) (03/06/2011 4:48 PM EDT) P athologist Signature Glucose Lvl 96 60 - 199 CERNER mg/dL MILLENNIUM Comment: Diabetes: >=200 mg/dL plus symp toms BUN 17 10 - 20 mg/dL CERNER MILLENNIU M Creatinine 0.69 (L) 0.80 - 1.50 mg/dL CERNER MILL ENNIUM Sodium 142 135 - 145 mmol/L CERNER SABINO NIUM Potassium 4.0 3.5 - 5.0 mmol/L CERNER SABINO NIUM Comment: Please note: ??Patients with WBC >100,00 0 may have falsely elevated Potassium levels. ??For accurate Potassium quantif ication in these patients send serum separator tube (gold top) for subsequent determinations. ??Contact the Clinical Chemistry Laboratory if there are any qu estions. Chloride 108 (H) 98 - 107 mmol/L CERNER MILLENN IUM CO2 24 22 - 31 mmol/L CERNER MILLENNI UM Anion Gap 10 5 - 15 mmol/L CERNER MILLENNIU M Calcium 9.5 8.5 - 10.5 mg/dL CERNER SABINO NIUM Total Protein 7.8 6.4 - 8.3 gm/dL CERNER MIL LENNIUM Albumin 3.9 3.2 - 5.2 gm/dL CERNER MILLENN IUM AST 145 (H) 0 - 39 unit/L CERNER MILLENNIU M ALT 143 (H) 0 - 55 unit/L CERNER MILLENNIU M Alk Phos 118 40 - 120 unit/L CERNER MILLENN IUM Total Bilirubin 0.9 0.2 - 1.3 mg/dL [facility] ILLENNIUM Bili, Direct 0.3 0.0 - 0.3 mg/dL CERNER MILL ENNIUM Estimated GFR >60 >=60 FARHAD MARISELAJOSHUA James Comment: The National Kidney Disease Education Pr ogram (NKDEP) has recommended all laboratories report estimated GFR (eGFR) along with plasma creatinine measurements to assist you with recognit ion of early kidney disease. Caveats: ??Plasma creatinine should be a t steady-state (unchanged within the past week). For patient s multiply eGFR by 1.2.MDRD equation has not been validated for pediatric pat ients and is only valid for patients with age >= 18 years. At present, NKDEP does NOT recommend usi [...] Location / / Volume Laterality Blood specimen 03/06/2011 4:48 PM 011 4:54 (specimen) EDT PM EDT Finn Iqbal MD CHEMISTRY ORDERABLES Performing Organization Address City/State/ZIP [place] [address] FARHAD ANTONIOENNIUM (ABNORMAL) CBC (with Diff) (03/06/2011 4:48 PM EDT) P athologist Signature WBC 6.2 4.0 - 10.0 CERNER x10(3)/mcL MILLENNIUM RBC 4.85 4.63 - CERNER 6.08 MILLENNIUM x10(6)/mcL Hemoglobin 15.9 13.7 - CERNER 17.5 gm/dL MILLENNIUM Hematocrit 44.2 40.0 - CERNER 51.0 % MILLENNIUM MCV 91.1 79.0 - CERNER 92.0 fL MILLENNIUM MCH 32.8 (H) 25.6 - CERNER 32.2 pg MILLENNIUM MCHC 36.0 32.0 - CERNER 36.5 gm/dL MILLENNIUM Platelets 109 (L) 145 - 370 CERNER x10(3)/mcL MILLENNIUM RDWSD 41.0 35.0 - CERNER 46.0 fL MILLENNIUM RDWCV 12.3 10.9 - CERNER 14.4 % MILLENNIUM MPV 12.4 (H) 9.0 - 12.0 CERNER fL MILLENNIUM Specimen Anatomical Collection Method Collection Time Receive d Time (Source) Location / / Volume Laterality Blood specimen 03/06/2011 4:48 PM 011 4:54 (specimen) EDT PM EDT Finn Iqbal MD HEMATOLOGY ORDERABLES Performing Organization Address City/State/ZIP [place] [address] CERNER MILLENNIUM documented in this encounter Visit Diagnoses Diagnosis Chronic hepatitis C without mention of h epatic coma - Primary documented in this encounter Care Teams Pharmacist Technician Relationship Specialty Start Date End Date Moy Mcnair MD PCP - General 11/04/10 [address] [place] [address] documented as of this encounter
--- OUTSIDE RECORDS SUMMARY | 2022-09-20 09:59 | XMS_ITS | Encounter Summary ---
:1975 Author Organization [facility] Address [address] [place] [address] Care Team Providers Name Role Phone Moy Mcnair MD Primary Care Provider Reason for Visit Reason Onset Date Comments Paperwork request 10/11/2015 LAB/US ORDERS Encounter Details Date Type Department Care Team Description 10/11/2015 Telephone [facility] Stefany Tracey [place] perwork request Gastroenterology - Main (LAB/US ORDERS) [place] [address] [place] [address] [facility] [phone] [facility] [address] [place] [address] (Wo rk) Social History Tobacco Use [...] making decisions? documented as of this encounter Miscellaneous Notes Telephone Encounter - Génesis Tarango - 10/11/2015 7717 EST Handed patient the lab and ultrasound order to be done at [facility]. documented in this encounter Plan of Treatment Not on filedocumented as of this encounter Visit Diagnoses Not on filedocumented in this encounter Care Teams Programmer Operator Numerical Control Relationship Specialty Start Date End Date Moy Mcnair MD PCP - General 08/07/11 [address] [place] [address] documented as of this encounter
--- OUTSIDE RECORDS SUMMARY | 2022-09-20 09:59 | XMS_ITS | Encounter Summary ---
:[address] [facility] Address [address] [place] [address] Care Team Providers Name Role Phone Moy Mcnair MD Primary Care Provider Reason for Visit Reason Onset Date Comments Medication Management 2014 Encounter Details Date Type Department Care Team Description 2014 Telephone [facility] Stefany Tracey 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 Will provide him with lab slips since he has labs drawn at an outside facility. Patient informed that he will need monthly labs while on this treatment. Patient verbalized understanding and is in agreement with this Plan. Telephone Encounter - Génesis Tarango - 2014 0902 EST Patient has received his medication for treatment and ready to speak to a nurse. documented in this encounter Plan of Treatment Not on filedocumented as of this encounter Visit Diagnoses Not on filedocumented in this encounter Care Teams Steep Tender Relationship Specialty Start Date End Date Moy Mcnair MD PCP - General 08/07/[address] [place] [id number] documented as of this encounter
--- OUTSIDE RECORDS SUMMARY | 2022-09-20 09:59 | XMS_ITS | Encounter Summary ---
:1975 Author Organization [facility] Address [address] [place] [address] Care Team Providers Name Role Phone Moy Mcnair MD Primary Care Provider Reason for Visit Reason Onset Date Comments Pre-visit Orders 08/09/2020 Encounter Details Date Type Department Care Team Description 08/09/2020 Telephone [facility] Stefany Tracey Pr e-visit Orders Gastroenterology - [address] [address] [facility] [phone] [facility] [address] [place] [address] (Wo rk) Social History Tobacco [...] this encounter Miscellaneous Notes Telephone Encounter - Wu Gary RN - 08/09/2020 2088 EDT RN faxed orders for labs and ABD US to [facility]. Call placed to patient to relay that these orders had been faxed, advised patient to call back to the clinic if those orders haven't made it to their destinations. Pt verbalized understanding. Telephone Encounter - Marine Wolf - 08/09/2020 1324 EDT Needs orders for ultrasound and blood work send to [facility]. 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 documented in this encounter Plan of Treatment Not on filedocumented as of this encounter Visit Diagnoses Not on filedocumented in this encounter Care Teams Multimedia Engineer Relationship Specialty Start Date End Date Moy Mcnair MD PCP - General 08/07/11 [address] [place] [address] documented as of this encounter
--- OUTSIDE RECORDS SUMMARY | 2022-09-20 09:59 | XMS_ITS | Encounter Summary ---
:1975 Author Organization [facility] Address [address] [place] [address] Care Team Providers Name Role Phone Moy Mcnair MD Primary Care Provider Reason for Visit Reason Onset Date Comments Results 03/16/2014 Encounter Details Date Type Department Care Team Description 03/16/2014 Telephone [facility] Slime Contreras RN [address] [address] Social History Tobacco Use Types Packs/Day Years Used Date Smoking Tobacco: Never Smokeless Tobacco: Former Alcohol Use Standard Drinks/Week Comments No 0 (1 standard drink = 0.6 oz pure alcoho l) Sex Assigned at Date Recorded Not on file documented as of this encounter Miscellaneous Notes Telephone Encounter - Slime Contreras RN - 03/16/2014 3533 EDT Patient called with results of today,s labwork, spoke with his -Maryam, relayed Dr.Straders recommendations to remain on current doses of interferon, ribavirin,sovaldi & repeat labs for end of treatment in 4 weeks. ( lab slip sent ) Maryam verbalized understanding , states cathy has had some mouth sores, not white & was advised to have his PCP check these. She verbalized understanding & will call as needed. documented in this encounter Plan of Treatment Not on filedocumented as of this encounter Visit Diagnoses Not on filedocumented in this encounter Care Teams Asset Protection Associate Relationship Specialty Start Date End Date Moy Mcnair MD PCP - General 08/07/11 [address] [place] [address] documented as of this encounter
--- OUTSIDE RECORDS SUMMARY | 2022-09-20 09:59 | XMS_ITS | Encounter Summary ---
:1975 Author Organization [facility] Address [address] [place] [address] Care Team Providers Name Role Phone Moy Mcnair MD Primary Care Provider Encounter Details Date Type Department Care Team Description 12/01/2017 Results Only Imaging [facility]- Unknown, [facility] ProviderMD [phone] Social History Tobacco Use Types Packs/Day Years [...] Name Type Priority Associated Diagnoses Date/Ti me RAD OUTSIDE CD - US BODY Imaging 03/2018 10:47 EST documented as of this encounter Visit Diagnoses Not on filedocumented in this encounter Care Teams Mental Retardation Aide Relationship Specialty Start Date End Date Moy Mcnair MD PCP - General 08/07/11 [address] [place], [place] [id number] documented as of this encounter
--- OUTSIDE RECORDS SUMMARY | 2022-09-20 09:59 | XMS_ITS | Encounter Summary ---
:1975 Author Organization [facility] Address [address] [place] [address] Care Team Providers Name Role Phone Moy Mcnair MD Primary Care Provider Encounter Details Date Type Department Care Team Description 08/04/2016 Hospital Encounter [facility] Stefany Tracey ea, Endoscopy Outpatient MD [id number] [place] [address] [place], [address] [place] [address] (Wo rk) Social History Tobacco Use Types Packs/Day Years Used Date Smoking Tobacco: Never Smokeless Tobacco: Former Alcohol Use Standard Drinks/Week Comments No 0 (1 standard drink = 0.6 oz pure alcoho l) Sex Assigned at Date Recorded Not on file documented as of this encounter Last Filed Vital Signs Vital Sign Reading Time Taken Comments Blood Pressure 138/72 08/04/2016 1628 EDT Pulse - - Temperature 35.8 ??C (96.4 ??F) 08/04/2016 1628 EDT Respiratory Rate 16 08/04/2016 1638 EDT Oxygen Saturation 96% 08/04/2016 1638 EDT Inhaled Oxygen Concentration - - Weight 111.6 kg (246 lb) 08/04/2016 1430 EDT Height 177.8 cm (5' 10) 08/04/2016 1430 EDT Body Mass Index 35.3 08/04/2016 1430 EDT documented in this encounter Functional Status [...] as of this encounter Discharge Diagnoses Diagnosis I85.00 Esophageal varices without bleedi ng-I85.00[ICD-10-CM] I10 Essential (primary) hypertension-I10 [ICD-10-CM] Z87.891 Personal history of nicotine dep endence-Z87.891[ICD-10-CM] Z79.899 Other care home (current) drug t herapy-Z79.899[ICD-10-CM] documented in this encounter Medications at Time of Discharge Medication Sig Dispensed Refills Start Date End Date carvedilol (COREG) 12.5 mg Take 1 Tab by mouth 60 Tab 5 06/23/2016 tablet 2 times daily. ledipasvir-sofosbuvir Take 1 Tab by mouth 28 Tab 5 11/16 90-400 mg tablet daily. mirtazapine (REMERON) 45 mg Take 1 Tab by mouth 30 Tab 2 10/20/2012 tablet daily. multivitamin (THERAGRAN) Take 1 Tab by mouth 0 per tablet daily. documented as of this encounter Discharge Disposition Disposition Code Departure Means Destination Auto Discharge Home documented in this encounter H&P Notes Stefany Tracey MD - 08/04/2016 1608 EDT Endoscopy Sedation for Procedure History & Physical Date: 08/04/2016 Time: 16:08 Location: [address] Planned Procedure: Gastroscopy Chief Complaint/Indications for Procedure: Maintenance ? History Previous Complication with Sedation and/or Anesthesia? No Allergies: Allergies Allergen Reactions ??? Eucerin Original [Lanolin-Mineral Oil] rash Current Medications: Current Outpatient Prescriptions Medication Sig Dispense Refill ??? carvedilol (COREG) 12.5 mg tablet Take 1 Tab by mouth 2 times daily. 60 Tab 5 ??? ledipasvir-sofosbuvir 90-400 mg tablet Take 1 Tab by mouth daily. 28 Tab 5 ??? mirtazapine (REMERON) 45 mg tablet Take 1 Tab by mouth daily. (Patient taking differently: Take 15 mg by mouth daily. ) 30 Tab 2 ??? multivitamin (THERAGRAN) per tablet Take 1 Tab by mouth daily. Current Facility-Administered Medications Medication Route Frequency ??? lactated ringers (LR) infusion intravenous CONTINUOUS ??? meperidine (PF) (DEMEROL) 100 mg/mL injection 25-200 mg intravenous Once PRN ??? midazolam (PF) (VERSED) 1 mg/mL injection 1-10 mg intravenous Once PRN Past Medical History: Past Medical History Diagnosis Date ??? Anxiety ??? Generalized anxiety disorder 08/12/2011 ??? Hep C w/ coma, chronic ??? Hypertension ??? Iron overload heterozygous for hemochromatosis gene 2011 ??? Mental disorder Social History: History reviewed. No pertinent past surgical history. Social History Substance Use Topics ??? Smoking status: Never Smoker ??? Smokeless tobacco: Former User ??? Alcohol use No Family History: Family History Problem Relation Age of Onset ??? Heart Disease Mother ??? Diabetes Maternal Aunt Review of Systems as pertinent: Physical Exam Vital Signs: Visit Vitals ??? BP 137/75 ??? Temp 36.1 ??C (97 ??F) (Tympanic) ??? Resp 16 ??? Ht 177.8 cm (70) ??? Wt (!) 111.6 kg (246 lb) ??? SpO2 97% ??? BMI 35.3 kg/m2 Heart Examination: Cardiac Regularity: Regular Respiratory Examination: Respiratory Pattern: Regular Breath Sounds Right: Clear Breath Sounds Left: Clear Abdominal Examination: Soft, non-tender, bowel sounds normal, no masses, no organomegaly Additional physical exam related to the proposed procedure, patient activity, disease state and treatment as pertinent: Assessment Previous complications with sedation or anesthesia?: No Airway Concerns: None Anesthesia Classification: ASA 3 Plan: Proceed with sedation for procedure Fasting Time: Time of last liquid intake: 0800 (just a sip of water with meds) Date of Last Liquid Intake: 08/04/16 Time of last solid intake: 0000 Date of last solid intake: 08/03/16 Patient Appropriate Candidate for Planned Sedation?: Yes Stefany Tracey MD 08/04/2016 16:08 documented in this encounter Plan of Treatment Not on filedocumented as of this encounter Procedures Procedure Name Priority Date/Time Associated Diagnosis Comme nts PROCEDURE REPORTS - 08/05/2016 0:40 EDT R esults for this SCANNED procedure are i n the results section. documented in this encounter Results PROCEDURE REPORTS - SCANNED (08/05/2016 0:40 EDT) Specimen (Source) Anatomical Collection Method Collection Time Re ceived Time Location / / Volume Laterality 08/05/2016 0:40 EDT Narrative This result has an attachment that is no t available. Scan 2 Sheet [facility] PROCEDURE/MINOR SURGICAL ORD ERABLES documented in this encounter Visit Diagnoses Not on filedocumented in this encounter Administered Medications Inactive Administered Medications - up to 3 most recent administrations Medication Order MAR Action Action Date Dose Rate Site lactated ringers (LR) infusion New Bag 08/04/2016 14:52 EDT 30 mL/hr 30 mL/hr 30 mL/hr, intravenous, CONTINUOUS, Starting on Thu08/04/16 at 1445, Until Thu08/06/16 at 0420, Routine, Preprocedure meperidine (PF) (DEMEROL) 100 mg/mL injection Given 08/04/2016 1 6:17 EDT 25 mg 25-200 mg 25-200 mg, intravenous, ONCE PRN, 1 dose, Starting on Thu08/04/16 at 1427, Until Thu08/04/16 at 1617, Other, sedation, Routine, Intraprocedure midazolam (PF) (VERSED) 1 mg/mL injectio n 1-10 mg Given 08/04/2016 16:18 EDT 2 mg 1-10 mg, intravenous, ONCE PRN, 1 dose, Starting on Thu08/04/16 at 1427, Until Thu08/04/16 at 1618, Sedation, Routine, Intraprocedure documented in this encounter Orders Discharge Count Last Ordered Date First Ordered Date DISCHARGE PATIENT 1 08/04/2016 documented in this encounter Care Teams Licensed Aircraft Maintenance Engineer Relationship Specialty Start Date End Date Moy Mcnair MD PCP - General 08/07/11 [address] [place] [address] documented as of this encounter
--- OUTSIDE RECORDS SUMMARY | 2022-09-20 09:59 | XMS_ITS | Encounter Summary ---
:1975 Author Organization [facility] Address [address] [place] [address] Care Team Providers Name Role Phone Moy Mcnair MD Primary Care Provider Reason for Visit Reason Comments Hepatitis C 3 month f/u Encounter Details Date Type Department Care Team Description 02/01/2015 Office Visit [facility] Stefany Tracey Chronic hepatitis C Gastroenterology - [facility] MD Nida with cirrhosis [address] ([facility]) (Primary [address] [facility] Dx) [place] [address] [facility] [phone] [facility] [address] [place] [address] Social History Tobacco Use Types Packs/Day Years Used Date Smoking Tobacco: Never Smokeless Tobacco: Former Alcohol Use Standard Drinks/Week Comments No 0 (1 standard drink = 0.6 oz pure alcoho l) Sex Assigned at Date Recorded Not on file documented as of this encounter Last Filed Vital Signs Vital Sign Reading Time Taken Comments Blood Pressure 126/84 02/01/2015 1608 EDT Pulse 60 02/01/2015 1608 EDT Temperature - - Respiratory Rate - - Oxygen Saturation - - Inhaled Oxygen Concentration - - Weight 108.9 kg (240 lb) 02/01/2015 1608 EDT Height 172.7 cm (5' 8) 02/01/2015 1608 EDT Body Mass Index 36.49 02/01/2015 1608 EDT documented in this encounter Progress Notes Stefany Tracey MD - 02/01/2015 1624 EDT Mr. Freeman is a 39yo obese man with anxiety and cirrhosis secondary to alcohol abuse and HCV genotype 1a s/p 12 weeks of sof/PegIFN/riba (2012) s/p relapse 6 months after treatment discontinuation. He is currently on Harvoni (week 9) with undetectable HCV RNA at weeks 4 and 8. He is about to change jobs and is concerned that his meds may not be covered. Exam: Well-developed, well-nourished male in no acute distress. Heent: anicteric, neck supple, no adenopathy. Lungs: clear. Heart: regular rate and rhythm. Abdomen: soft, nontender, +BS, no masses. Extremities: without cyanosis, clubbing or edema. Lab: Lab Results Component Value Date AST 147* 04/21/2013 ALT 139* 04/21/2013 TBIL 1.6* 04/21/2013 ALKPHOS 218* 04/21/2013 LABALBU 3.5 04/21/2013 Impression: 1. Cirrhosis secondary to HCV genotype 1a s/p relapse after PegIFN/riba Mr. Freeman is a 39yo obese man with HCV genotype 1a s/p relapse with PegIFN/riba, now on week 9 of Harvoni with undetectable HCV RNA at weeks 4 and 8. He will continue with 24 weeks of therapy. Next scheduled HCV RNA is at week 12. Mr. Freeman is considering changing jobs next month and is concerned that his Harvoni will not be covered for the last 2 months of therapy. Will have our insurance supportstaff check into this for him. Plan: 1. Continue Harvoni 2. HCV RNA at weeks 12 and 24 3. Abdominal US in March 29. Follow up in 4 months documented in this encounter Plan of Treatment Not on filedocumented as of this encounter Visit Diagnoses Diagnosis Chronic hepatitis C with cirrhosis (HCC- CMS) (HCC) - Primary Chronic hepatitis C without mention of h epatic coma documented in this encounter Care Teams Com Writer Relationship Specialty Start Date End Date Moy Mcnair MD PCP - General 08/07/11 [address] [place] [address] documented as of this encounter
--- OUTSIDE RECORDS SUMMARY | 2022-09-20 09:59 | XMS_ITS | Encounter Summary ---
:1975 Author Organization [facility] Address [address] [place] [address] Care Team Providers Name Role Phone Moy Mcnair MD Primary Care Provider Reason for Visit Reason Comments Cirrhosis Encounter Details Date Type Department Care Team Description 02/09/2020 Telemedicine [facility] Stefany Tracey ic cirrhosis Gastro[facility]ology - [facility] MD Nida [address] (HCC-CMS) 111 [facility] (Primary Dx) [place], [place] [id number] [place] [address] [facility] [address] [place] [address] Social History Tobacco Use Types [...] encounter Progress Notes Stefany Tracey MD - 02/09/2020 1620 EDT Mr. Freeman is a 44yo man with compensated alcoholic cirrhosis (abstinent for 4.5 years), presenting for scheduled clinic follow up visit (via telephone consultation due to Covid 19 isolation restrictions) without complaints. Exam: Not done: telephone visit Lab: Lab Results Component Value Date AST 147 (H) 04/21/2013 ALT 139 (H) 04/21/2013 TBIL 1.6 (H) 04/21/2013 ALKPHOS 218 (H) 04/21/2013 LABALBU 3.5 04/21/2013 No recent blood work or abdominal imaging is available for review Impression: 1. Cirrhosis secondary to alcohol use disorder Mr. Freeman is a 44yo man with compensated cirrhosis secondary to alcohol use disorder (abstinent for 4.5 years) presenting for scheduled clinic follow up visit via telephone consultation. He denies decompensating events and endorses continued alcohol abstinence. No recent blood work or abdominal imaging is available for review, although he is up to date with varices surveillance. Will schedule follow up visit in 6 months. Mr. Freeman is instructed to contact the office if he develops jaundice, icterus, dark urine, pruritus, abdominal distention, edema, hematemesis, confusion, anorexia or weight loss. Plan: 1. Chem panel, INR, CBC and abdominal US in 6 months 2. Follow up in 6 months documented in this encounter Plan of Treatment Not on filedocumented as of this encounter Visit Diagnoses Diagnosis Alcoholic cirrhosis of liver without asc ites (HCC-CMS) (HCC) - Primary Alcoholic cirrhosis of liver documented in this encounter Care Teams Team Otr Truck Driver Relationship Specialty Start Date End Date Moy Mcnair MD PCP - General 08/07/11 [address] [place] [address] documented as of this encounter
--- OUTSIDE RECORDS SUMMARY | 2022-09-20 09:59 | XMS_ITS | Encounter Summary ---
:1975 Author Organization [facility] Address [address] [place] [address] Care Team Providers Name Role Phone Moy Mcnair MD Primary Care Provider Encounter Details Date Type Department Care Team Description 03/26/2015 Orders Only [facility] [place], Chronic h epatitis C Gastroenterology - [facility] with out mention of [place] hepatic coma (Primary [address] Dx) [place] [address] Social History Tobacco Use Types Packs/Day Years [...] Primary documented in this encounter Care Teams School Aide Relationship Specialty Start Date End Date Moy Mcnair MD PCP - General 08/07/11 [address] [place], [place] [id number] documented as of this encounter
--- OUTSIDE RECORDS SUMMARY | 2022-09-20 09:59 | XMS_ITS | Encounter Summary ---
:1975 Author Organization Health system Address [address] [place] [address] Care Team Providers Name Role Phone Moy Mcnair MD Primary Care Provider Encounter Details Date Type Department Care Team Description 05/31/2018 Results Only Imaging [facility]- Unknown, [facility] ProviderMD [phone] Social History Tobacco Use Types Packs/Day Years [...] me OUTSIDE IMAGES - US BODY Imaging 03/2018 11:02 EDT documented as of this encounter Visit Diagnoses Not on filedocumented in this encounter Care Teams Labor Utilization Superintendent Relationship Specialty Start Date End Date Moy Mcnair MD PCP - General 08/07/11 [address] [place] [address] documented as of this encounter
--- OUTSIDE RECORDS SUMMARY | 2022-09-20 09:59 | XMS_ITS | Encounter Summary ---
:1975 Author Organization [facility] [place] [address] Care Team Providers Name Role Phone Moy Mcnair MD Primary Care Provider Reason for Visit Reason Onset Date Comments Questions 02/12/2011 Encounter Details Date Type Department Care Team Description 02/12/2011 Telephone Gastroenterology at [facility] Maricruz Izquierdo, RN [facility] [place] [address] [place] [address] Social History Tobacco Use Types Packs/Day Years Used Date Smoking Tobacco: Never Assessed Sex Assigned at Date Recorded Not on file documented as of this encounter Miscellaneous Notes Telephone Encounter - Maricruz Izquierdo RN - 02/12/2011 1:56 PM EDT Patient called asking if his insurance would cover his medications once he is treated for hep C. Lianna RIDDLE advised that all questions will be answered at his visit with her 03/06. Patient in agreement with plan. documented in this encounter Plan of Treatment Not on filedocumented as of this encounter Visit Diagnoses Not on filedocumented in this encounter Care Teams Search Analyst Relationship Specialty Start Date End Date Moy Mcnair MD PCP - General 11/04/10 [address] [place] [address] documented as of this encounter
--- OUTSIDE RECORDS SUMMARY | 2022-09-20 09:59 | XMS_ITS | Encounter Summary ---
:1975 Author Organization [facility] Address [address] [place] [address] Care Team Providers Name Role Phone Moy Mcnair MD Primary Care Provider Reason for Referral Radiology Services (Routine) - Closed Specialty Diagnoses / Procedures Referred By Contact Refer red To Contact Diagnoses Other cirrhosis of liver (HCC) Stefany Tracey MD Procedures RAD US ABDOMEN ONE ORGAN/QUADRANT [address] [place] [phone] Referral ID Status Reason Start Date Expiration Date Visits Requ ested Visits Authorized [id number] Closed 12/02/2018 1 1 Reason for Visit Reason Comments Follow-up 6mo f/u hep c Encounter Details Date Type Department Care Team Description 12/02/2018 Office Visit [facility] Stefany Tracey irrhosis of Gastroenterology - [facility] MD Nida liver (H[facility]) Lucas [address] [place] [address] (Primary Dx) [address] [place] [address] [address] Social History Tobacco Use Types Packs/Day Years Used Date Smoking Tobacco: Never Smokeless Tobacco: Former Alcohol Use Standard Drinks/Week Comments No 0 (1 standard drink = 0.6 oz pure alcoho l) Sex Assigned at Date Recorded Not on file documented as of this encounter Last Filed Vital Signs Vital Sign Reading Time Taken Comments Blood Pressure - - Pulse - - Temperature - - Respiratory Rate 16 12/02/2018 1502 EST Oxygen Saturation - - Inhaled Oxygen Concentration - - Weight 106.6 kg (235 lb) 12/02/2018 1502 EST Height 177.8 cm (5' 10) 12/02/2018 1502 EST Body Mass Index 33.72 12/02/2018 1502 EST documented in this encounter Functional Status [...] encounter Progress Notes Stefany Tracey MD - 12/02/2018 1520 EST Mr. Freeman is a 42yo obese man with cirrhosis (MELD 6) secondary to alcohol abuse (abstinent) and HCV (cured) presenting for scheduled follow up visit without complaints. Unfortunately, he forgot to have blood work drawn prior to his visit. Exam: Well-developed, well-nourished obese male in no acute distress. Heent: anicteric, neck supple, no adenopathy. Lungs: clear. Heart: regular rate and rhythm. Abdomen: soft, nontender, +BS, no masses. Extremities: without cyanosis, clubbing or edema. Lab: Lab Results Component Value Date AST 147 (H) 04/21/2013 ALT 139 (H) 04/21/2013 TBIL 1.6 (H) 04/21/2013 ALKPHOS 218 (H) 04/21/2013 LABALBU 3.5 04/21/2013 [facility] (12/01/18) Abdominal US: Stable appearance of mild cirrhosis. No focal liver lesion or ascites Impression: 1. Cirrhosis secondary to HCV Mr. Camargo is an obese man with cirrhosis secondary to HCV (cured) and a history of alcohol abuse (abstinent) presenting for scheduled clinic follow up visit. There have been no decompensating events.His clinical exam reveals an obese, benign abdomen without organomegaly or distention, and no peripheral edema. No blood work is available for review and calculation of MELD today. However, abdominal US reveals cirrhosis without focal hepatic masses. He will have blood drawn tomorrow. Mr. Camargo is advised to contact the office if he develops jaundice, icterus, dark urine, pruritus, abdominal distention, peripheral edema, hematemesis, anorexia or weight loss. Plan: 1. Blood work now and in 6 months 2. Abdominal US in 6 months 3. Follow up in 6 months documented in this encounter Plan of Treatment Scheduled Orders Name Type Priority Associated Diagnoses Order S chedule RAD US ABDOMEN ONE Imaging Routine Other cirrhosis of eric er Ordered: 12/02/2018 ORGAN/QUADRANT (HCC-CMS) documented as of this encounter Visit Diagnoses Diagnosis Other cirrhosis of liver (HCC) - Primary documented in this encounter Care Teams Professor Of Exercise Science Relationship Specialty Start Date End Date Moy Mcnair MD PCP - General 08/07/11 [address] [place] [address] documented as of this encounter
--- OUTSIDE RECORDS SUMMARY | 2022-09-20 09:59 | XMS_ITS | Encounter Summary ---
:1975 Author Organization [facility] Address [address] [place] [address] Care Team Providers Name Role Phone Moy Mcnair MD Primary Care Provider Reason for Visit Reason Onset Date Comments Other 01/08/2015 Patient is calling f or a note to clear him for dental work. He currently has a toot h ache. Encounter Details Date Type Department Care Team Description 01/08/2015 Telephone [facility] Stefany Tracey Ot her (Patient is Gastroenterology - Main MD calling for a note [place] [address] [place] [address] to clear him for [facility] dental work. He [place], [place] [phone] [place] [address] currently has a [phone] [facility], Level 5 tooth ache. ) [place] [address] (Wo rk) Social History Tobacco Use Types Packs/Day Years Used Date Smoking Tobacco: Never Smokeless Tobacco: Former Alcohol Use Standard Drinks/Week Comments No 0 (1 standard drink = 0.6 oz pure alcoho l) Sex Assigned at Date Recorded Not on file documented as of this encounter Miscellaneous Notes Telephone Encounter - Sylvie Hardin RN - 01/08/2015 4646 EDT Patient needs a note from Dr. Tracey to be cleared for dental work. He has a toothache and [facility] will not treat him until he has this letter. Would like letter faxed to the dental group at [phone]. documented in this encounter Plan of Treatment Not on filedocumented as of this encounter Visit Diagnoses Not on filedocumented in this encounter Care Teams Millwright Helper Relationship Specialty Start Date End Date Moy Mcnair MD PCP - General 08/07/11 [address] [place] [address] documented as of this encounter
--- OUTSIDE RECORDS SUMMARY | 2022-09-20 09:59 | XMS_ITS | Encounter Summary ---
:1975 Author Organization [facility] Address [address] [place] [address] Care Team Providers Name Role Phone Moy Mcnair MD Primary Care Provider Reason for Referral Radiology Services (Routine) - New Request Specialty Diagnoses / Procedures Referred By Contact Refer red To Contact Diagnoses Other cirrhosis of liver (HCC) Stefany Tracey MD Procedures RAD US ABDOMEN ONE ORGAN/QUADRANT [address] [place] [phone] Referral ID Status Reason Start Date Expiration Date Visits V isits Requested Authorized [id number] New Request 06/03/2018 1 1 Reason for Visit Reason Comments Follow-up 6 month follow up Hep C Encounter Details Date Type Department Care Team Description 06/03/2018 Office Visit [facility] Stefany Tracey Other c irrhosis of Gastroenterology - Jeovany Alva MD liver (HCC-[facility]) Lindsay [address] [place] [address] (Primary Dx) [address] [place] [address] [address] Social History Tobacco Use Types Packs/Day Years Used Date Smoking Tobacco: Never Smokeless Tobacco: Former Alcohol Use Standard Drinks/Week Comments No 0 (1 standard drink = 0.6 oz pure alcoho l) Sex Assigned at Date Recorded Not on file documented as of this encounter Last Filed Vital Signs Vital Sign Reading Time Taken Comments Blood Pressure 124/70 06/03/2018 1254 EDT Pulse 72 06/03/2018 1254 EDT Temperature - - Respiratory Rate - - Oxygen Saturation - - Inhaled Oxygen Concentration - - Weight 99.8 kg (220 lb) 06/03/2018 1254 EDT Height 177.8 cm (5' 10) 06/03/2018 1254 EDT Body Mass Index 31.57 06/03/2018 1254 EDT documented in this encounter Functional Status [...] encounter Progress Notes Stefany Tracey MD - 06/03/2018 1300 EDT Mr. Freeman is an obese man with cirrhosis secondary alcohol abuse (abstinent) and HCV (recently cured after 12 weeks of Harvoni therapy) presenting for scheduled follow up without complaints. He has 'normal' aminotransferases, no masses on hepatic imaging and is up to date with varices surveillance. Exam: Well-developed, well-nourished male in no acute distress. Heent: anicteric, neck supple, no adenopathy. Lungs: clear. Heart: regular rate and rhythm. Abdomen: soft, nontender, +BS, no masses, liver palpable 2 cm below costal margin. Extremities: without cyanosis, clubbing or edema. Lab: Lab Results Component Value Date AST 147 (H) 04/21/2013 ALT 139 (H) 04/21/2013 TBIL 1.6 (H) 04/21/2013 ALKPHOS 218 (H) 04/21/2013 LABALBU 3.5 04/21/2013 [facility] (06/02/18) AST: 48 ALT: 40 Total bilirubin: 0.9 Alkaline phosphatase: 91 Sodium: 139 Creatinine: 0.75 Glucose: 77 Potassium: 4.0 Platelet count: 107 PTT: 25 (no INR) Hgb: 15.4 Abdominal US: lobulated contour of the liver without masses, splenomegaly, no ascites Impression: 1. Cirrhosis secondary to alcohol abuse (abstinent for years) and HCV (cured 2017) Mr. Freeman is a 42yo man with cirrhosis (MELD 6) secondary to alcohol abuse (abstinent) and HCV (cured) presenting for scheduled follow up visit without complaints. There have been no recent decompensating events, his physical exam reveals mild hepatomegaly, his liver panel is normal and he is up to date with HCC surveillance. Mr. Freeman is due for varices surveillance later this year. He does express some reluctance due to recent financial difficulties and high- deductible insurance, but will try to have the EGD performed within the next 6 months. Plan: 1. Chem panel, INR, CBC and abdominal US 2. EGD for varices in the next 6-8 months 3. Follow up in 6 months documented in this encounter Plan of Treatment Scheduled Orders Name Type Priority Associated Diagnoses Order S chedule RAD US ABDOMEN ONE Imaging Routine Other cirrhosis of eric er Ordered: 06/03/2018 ORGAN/QUADRANT (CMS-HCC) documented as of this encounter Visit Diagnoses Diagnosis Other cirrhosis of liver (HCC) - Primary documented in this encounter Care Teams Primary Clinician Relationship Specialty Start Date End Date Moy Mcnair MD PCP - General 08/07/11 [address] [place] [address] documented as of this encounter
--- OUTSIDE RECORDS SUMMARY | 2022-09-20 09:59 | XMS_ITS | Encounter Summary ---
:1975 Author Organization [facility] Address [address] [place] [address] Care Team Providers Name Role Phone Moy Mcnair MD Primary Care Provider Reason for Visit Reason Onset Date Comments Results 02/16/2014 Encounter Details Date Type Department Care Team Description 02/16/2014 Telephone [facility] Slime Contreras RN [address] [address] Social History Tobacco Use Types Packs/Day Years Used Date Smoking Tobacco: Never Smokeless Tobacco: Former Alcohol Use Standard Drinks/Week Comments No 0 (1 standard drink = 0.6 oz pure alcoho l) Sex Assigned at Date Recorded Not on file documented as of this encounter Miscellaneous Notes Telephone Encounter - Slime Contreras RN - 02/16/2014 8307 EDT A message was left with Dr.Straders recommendation to remain on current doses of interferon/ribavirin/sovaldi & repeat bloodowork in 4 weeks to include HCVPCR. A lab slip was sent to the patient for this to be done. documented in this encounter Plan of Treatment Not on filedocumented as of this encounter Visit Diagnoses Not on filedocumented in this encounter Care Teams Missile Facilities Repairer Relationship Specialty Start Date End Date Moy Mcnair MD PCP - General 08/07/11 [address] [place], [place] [id number] documented as of this encounter
--- OUTSIDE RECORDS SUMMARY | 2022-09-20 09:59 | XMS_ITS | Encounter Summary ---
:1975 Author Organization [facility] Address [address] [place] [address] Care Team Providers Name Role Phone Moy Mcnair MD Primary Care Provider Reason for Referral Radiology Services (Routine) - Closed Specialty Diagnoses / Procedures Referred By Contact Refer red To Contact Diagnoses History of hepatitis C Stefany Tracey MD Procedures RAD US ABDOMEN ONE ORGAN/QUADRANT [address] [phone] Referral ID Status Reason Start Date Expiration Date Visits Requ ested Visits Authorized [id number] Closed 12/03/2016 1 1 Reason for Visit Reason Comments Follow-up 6mo F/U Encounter Details Date Type Department Care Team Description 12/03/2016 Office Visit [facility] Stefany Tracey History of Gastroenterology - Jeovany Alva MD hepatitis C [address] (Primary Dx) [address] [place] [address] [facility] [phone] [address] Social History Tobacco Use Types Packs/Day Years Used Date Smoking Tobacco: Never Smokeless Tobacco: Former Alcohol Use Standard Drinks/Week Comments No 0 (1 standard drink = 0.6 oz pure alcoho l) Sex Assigned at Date Recorded Not on file documented as of this encounter Last Filed Vital Signs Vital Sign Reading Time Taken Comments Blood Pressure 134/78 12/03/2016 0847 EST Pulse 56 12/03/2016 0847 EST Temperature - - Respiratory Rate 16 12/03/2016 0847 EST Oxygen Saturation - - Inhaled Oxygen Concentration - - Weight 110.6 kg (243 lb 14.4 oz) 12/03/2016 0847 EST Height 177.8 cm (5' 10) 12/03/2016 0847 EST Body Mass Index 35 12/03/2016 0847 EST documented in this encounter Functional Status [...] encounter Progress Notes Stefany Tracey MD - 12/03/2016 0900 EST Mr. Freeman is a 41yo obese man with anxiety and cirrhosis secondary to HCV genotype 1 s/p cure with 12 weeks of Harvoni (2014), presenting for scheduled follow up without complaints. Exam: Well-developed, well-nourished obese male in no acute distress. Heent: anicteric, neck supple, no adenopathy. Lungs: clear. Heart: regular rate and rhythm. Abdomen: obese, soft, nontender, +BS, no masses. Extremities: without cyanosis or clubbing; trace edema. Lab: Lab Results Component Value Date AST 147 (H) 04/21/2013 ALT 139 (H) 04/21/2013 TBIL 1.6 (H) 04/21/2013 ALKPHOS 218 (H) 04/21/2013 LABALBU 3.5 04/21/2013 [facility] AST: 51 ALT: 46 Total bilirubin: 1.05 Alkaline phosphatase: 116 Abdominal US: Cirrhotic liver; no focal masses Impression: 1. Cirrhosis Mr. Freeman is a 41yo obese man with cirrhosis (decompensated) secondary to HCV (s/p cure 2014). He presents to clinic without complaints. His liver panel reveals 'normal' aminotransferases (although above national liver societies agreed-upon upper limit of ~ 30 for men) and abdominal US without evidence of masses. Unfortunately, HCV RNA, CBC and INR was not performed. Will obtain that blood work today to document cure of HCV and to calculate MELD score. Mr. Freeman is up to date on varices surveillance. We discussed the importance of weight loss, continued abstinence from excessive alcohol intake (reports drinking 3-4 beers over the last month), and regular monitoring of blood work and hepatic imaging. Plan: 1. HCV RNA, INR, CBC now 2. Liver panel and abdominal US in 6 months 3. EGD in 2018 4. Follow up in 6 months documented in this encounter Plan of Treatment Scheduled Orders Name Type Priority Associated Diagnoses Order S chedule RAD US ABDOMEN ONE Imaging Routine History of hepatitis C Ordered: 12/03/2016 ORGAN/QUADRANT documented as of this encounter Visit Diagnoses Diagnosis History of hepatitis C - Primary Personal history of other infectious and parasitic disease documented in this encounter Historical Medications This list may reflect changes made after this encounter. Medication Sig Dispensed Refills Start Date End Date FLUoxetine (PROZAC) 20 mg Take 20 mg by mouth 0 capsule daily. added in this encounter Care Teams Police Chief Relationship Specialty Start Date End Date Moy Mcnair MD PCP - General 08/07/11 [address] [place] [address] documented as of this encounter
--- OUTSIDE RECORDS SUMMARY | 2022-09-20 09:59 | XMS_ITS | Encounter Summary ---
:1975 Author Organization [facility] [place] [address] Care Team Providers Name Role Phone Moy Mcnair MD Primary Care Provider Encounter Details Date Type Department Care Team Description 04/03/2011 Hospital Encounter Ultrasound at [facility], DR [facility] Finn Iqbal MD [facility] [place] [address] [place] [address] Social History Tobacco Use Types Packs/Day Years [...] on filedocumented in this encounter Care Teams Borematic Operator Relationship Specialty Start Date End Date Moy Mcnair MD PCP - General 1/10/11 [address] [place] [address] documented as of this encounter
--- OUTSIDE RECORDS SUMMARY | 2022-09-20 09:59 | XMS_ITS | Encounter Summary ---
:1975 Author Organization [facility] Address [address] [place] [address] Care Team Providers Name Role Phone Moy Mcnair MD Primary Care Provider Reason for Visit Reason Onset Date Comments Labs Only 11/20/[address] [facility] nurse know labs will be drawn on Thursday. Encounter Details Date Type Department Care Team Description 11/20/2016 Telephone [facility] Stefany Tracey La bs Only (Patient Gastroenterology - Main MD calling to [facility] [address] [place] know labs will be 111 [facility] drawn on Thursday.) [place], [place] [phone] [place] [address] [facility] [address] [place] [phone] (Wo rk) Social History Tobacco Use Types [...] Telephone Encounter - Slime Contreras RN - 11/20/2016 1355 EST . documented in this encounter Plan of Treatment Not on filedocumented as of this encounter Visit Diagnoses Not on filedocumented in this encounter Care Teams Exceptional Student Education Aide Relationship Specialty Start Date End Date Moy Mcnair MD PCP - General 08/07/11 [address] [place] [address] documented as of this encounter
--- OUTSIDE RECORDS SUMMARY | 2022-09-20 09:59 | XMS_ITS | Encounter Summary ---
:1975 Author Organization [facility] Address [address] [place] [address] Care Team Providers Name Role Phone Moy Mcnair MD Primary Care Provider Reason for Referral Radiology Services (Routine) - Closed Specialty Diagnoses / Procedures Referred By Contact Refer red To Contact Diagnoses Alcoholic cirrhosis of liver without ascites (HCC-CMS) (HCC) Stefany Tracey MD Procedures RAD US ABDOMEN ONE ORGAN/QUADRANT [address] [phone] Referral ID Status Reason Start Date Expiration Date Visits Requ ested Visits Authorized [id number] Closed 08/04/2019 1 1 Reason for Visit Reason Comments Follow-up 6mo f/u hep c Encounter Details Date Type Department Care Team Description 08/04/2019 Office Visit [facility] Stefany Tracey Alcohol ic cirrhosis Gastroenterology - [facility] MD [place] of liver without [facility] [address] [place] ascites (HCC-CMS) 111 [facility] (Primary Dx) [address] [phone] [address] Social History Tobacco Use Types Packs/Day Years Used Date Smoking Tobacco: Never Smokeless Tobacco: Former Alcohol Use Standard Drinks/Week Comments No 0 (1 standard drink = 0.6 oz pure alcoho l) Sex Assigned at Date Recorded Not on file documented as of this encounter Last Filed Vital Signs Vital Sign Reading Time Taken Comments Blood Pressure 160/90 08/04/2019 1606 EDT Pulse 60 08/04/2019 1606 EDT Temperature - - Respiratory Rate 14 08/04/2019 1606 EDT Oxygen Saturation - - Inhaled Oxygen Concentration - - Weight 109.8 kg (242 lb) 08/04/2019 1606 EDT Height 177.8 cm (5' 10) 08/04/2019 1606 EDT Body Mass Index 34.72 08/04/2019 1606 EDT documented in this encounter Functional Status [...] encounter Progress Notes Stefany Tracey MD - 08/04/2019 1620 EDT Mr. Camargo is an obese man with cirrhosis secondary to HCV (cured) and a history of alcohol abuse (abstinent 4 years) presenting for scheduled clinic follow up visit. Exam: Well-developed, well-nourished male in no acute distress. Heent: anicteric, neck supple, no adenopathy. Lungs: clear. Heart: regular rate and rhythm. Abdomen: soft, nontender, +BS, no masses. Extremities: without cyanosis, clubbing or edema. Lab: Lab Results Component Value Date AST 147 (H) 04/21/2013 ALT 139 (H) 04/21/2013 TBIL 1.6 (H) 04/21/2013 ALKPHOS 218 (H) 04/21/2013 LABALBU 3.5 04/21/2013 [facility] (06/01/19) Sodium: 140 Creatinine: 0.87 INR: 1.1 WBC: 6 Hgb: 16 Platelet count: 160 AST: 50 ALT: 49 Alk phos: 87 Total bilirubin: 0.8 Abdominal US: cirrhosis without masses Impression: 1. Compensated cirrhosis Mr. Freeman is a 43yo man with compensated alcoholic cirrhosis (abstinent for 4 years), presenting for scheduled clinic follow up visit without complaints. There have been no decompensating events. On exam, he is anicteric, without jaundice, with a obese, benign abdomen, and no peripheral edema. His chem panel, CBC and INR are WNL (with the exception of mild elevations in AST/ALT), and MELD is 7. No hepatic masses are noted on abdominal US, and he is up to date with varices surveillance. Mr. Freeman is advised to get a flu vaccine every year. He is also counseled to contact the office if he developsjaundice, icterus, pruritus, dark urine, abdominal distention/pain, hematemesis, melena, rectal bleeding, peripheral edema, anorexia or weight loss. Otherwise, will continue biannual clinical, biochemical and imaging exams. Plan: 1. Chem panel, INR, CBC, abdominal US in 6 months 2. EGD 2020 3. Follow up in 6 months documented in this encounter Plan of Treatment Scheduled Orders Name Type Priority Associated Diagnoses Order S chedule RAD US ABDOMEN ONE Imaging Routine Alcoholic cirrhosis of Ordered: 08/04/2019 ORGAN/QUADRANT liver without ascites (HCC-CMS) documented as of this encounter Visit Diagnoses Diagnosis Alcoholic cirrhosis of liver without asc ites (HCC-CMS) (HCC) - Primary Alcoholic cirrhosis of liver documented in this encounter Care Teams Barrel Line Operator Relationship Specialty Start Date End Date Moy Mcnair MD PCP - General 08/07/11 [address] [place] [address] documented as of this encounter
--- OUTSIDE RECORDS SUMMARY | 2022-09-20 09:59 | XMS_ITS | Encounter Summary ---
:1975 Author Organization [facility] Address [address] [place] [address] Care Team Providers Name Role Phone Moy Mcnair MD Primary Care Provider Encounter Details Date Type Department Care Team Description 04/08/[address] [facility]- Unknown, [facility] ProviderMD [phone] Social History Tobacco Use Types Packs/Day Years [...] me OUTSIDE IMAGES - US BODY Imaging 7:02 EDT documented as of this encounter Visit Diagnoses Not on filedocumented in this encounter Care Teams Ac/Dc Rewinder Relationship Specialty Start Date End Date Moy Mcnair MD PCP - General 08/07/11 [address] [place], [place] [phone] documented as of this encounter
--- OUTSIDE RECORDS SUMMARY | 2022-09-20 09:59 | XMS_ITS | Encounter Summary ---
:1975 Author Organization [facility] Address [address] [place] [address] Care Team Providers Name Role Phone Moy Mcnair MD Primary Care Provider Reason for Visit Reason Onset Date Comments Other 05/21/2015 Patient calling for CPT codes for his labs, call him. Encounter Details Date Type Department Care Team Description 05/21/2015 Telephone [facility] Stefany Tracey, Ot her (Patient Gastroenterology - Main MD calling for [facility] [place] [address] [place] [address] codes for his labs, 111 [facility] call him.) [place], [place] [phone] [place] [address] [place], [address] [place] [address] (Wo rk) Social History Tobacco Use Types Packs/Day Years Used Date Smoking Tobacco: Never Smokeless Tobacco: Former Alcohol Use Standard Drinks/Week Comments No 0 (1 standard drink = 0.6 oz pure alcoho l) Sex Assigned at Date Recorded Not on file documented as of this encounter Miscellaneous Notes Telephone Encounter - Génesis Tarango - 05/24/2015 1639 EDT Left message for patient to call me back to discuss his questions. documented in this encounter Plan of Treatment Not on filedocumented as of this encounter Visit Diagnoses Not on filedocumented in this encounter Care Teams Miner Assistant Relationship Specialty Start Date End Date Moy Mcnair MD PCP - General 08/07/11 [address] [place] [address] documented as of this encounter
--- OUTSIDE RECORDS SUMMARY | 2022-09-20 09:59 | XMS_ITS | Encounter Summary ---
:1975 Author Organization [facility] Address [address] [place] [address] Care Team Providers Name Role Phone Moy Mcnair MD Primary Care Provider Reason for Visit Reason Onset Date Comments Medication Management 03/26/2015 Encounter Details Date Type Department Care Team Description 03/26/2015 Telephone [facility] Tremaine White Gastroenterology - Main [facility] [place] [address] [place] [address] Social History Tobacco Use Types Packs/Day Years Used Date Smoking Tobacco: Never Smokeless Tobacco: Former Alcohol Use Standard Drinks/Week Comments No 0 (1 standard drink = 0.6 oz pure alcoho l) Sex Assigned at Date Recorded Not on file documented as of this encounter Progress Notes Lena White RPH - 03/26/2015 0934 EDT Will need to check on patients employment status for health insurance per Dr. Nugent last note; this is the first [employer] is hearing of a change. Lena White RPH - 03/26/2015 0930 EDT Patient is due for lab work 03/26. Faxed all necessary orders to [facility] & mailed hard-copies of necessary labs thru end of HCV treatment with due dates highlighted (03/26, 04/23, 05/21 & 08/06) documented in this encounter Plan of Treatment Not on filedocumented as of this encounter Visit Diagnoses Diagnosis Chronic hepatitis C without mention of h epatic coma - Primary documented in this encounter Care Teams Medical And Scientific Illustrator Relationship Specialty Start Date End Date Moy Mcnair MD PCP - General 08/07/11 [address] [place] [address] documented as of this encounter
--- OUTSIDE RECORDS SUMMARY | 2022-09-20 09:59 | XMS_ITS | Encounter Summary ---
:1975 Author Organization [facility] Address [address] [place] [address] Care Team Providers Name Role Phone Moy Mcnair MD Primary Care Provider Reason for Visit Reason Comments Hepatitis C 6 month follow up Encounter Details Date Type Department Care Team Description 11/02/2014 Office Visit [facility] Stefany Tracey Chronic hepatitis C Gastroenterology - [facility] MD Nida with cirrhosis [address] ([facility]) (Primary [address] [facility] Dx) [place] [address] [facility] [phone] [facility] [address] [place] [address] Social History Tobacco Use Types Packs/Day Years Used Date Smoking Tobacco: Never Smokeless Tobacco: Former Alcohol Use Standard Drinks/Week Comments No 0 (1 standard drink = 0.6 oz pure alcoho l) Sex Assigned at Date Recorded Not on file documented as of this encounter Last Filed Vital Signs Vital Sign Reading Time Taken Comments Blood Pressure 140/80 11/02/2014 1624 EST Pulse 72 11/02/2014 1624 EST Temperature - - Respiratory Rate - - Oxygen Saturation - - Inhaled Oxygen Concentration - - Weight 104.8 kg (231 lb) 11/02/2014 1624 EST Height 172.7 cm (5' 8) 11/02/2014 1624 EST Body Mass Index 35.12 11/02/2014 1624 EST documented in this encounter Progress Notes Stefany Tracey MD - 11/02/2014 1644 EST Mr. Freeman is a 38yo overweight man with anxiety and cirrhosis secondary to alcohol abuse and HCV genotype 1a s/p 12 weeks of sof/PegIFN/riba with undetectable HCV RNA at weeks 4, 8, and 12. Despite undetectable HCV RNA, his AST/ALT elevations persisted (no evidence of steatosis noted on liver biopsy). He presents to clinic today to discuss further management of HCV as repeat HCV RNA in September (12 weeks after treatment cessation) reveals relapse. Exam: Well-developed, well-nourished male in no acute distress. Heent: anicteric, neck supple, no adenopathy. Lungs: clear. Heart: regular rate and rhythm. Abdomen: soft, nontender, +BS, no masses. Extremities: without cyanosis, clubbing or edema. Lab: Lab Results Component Value Date AST 147* 04/21/2013 ALT 139* 04/21/2013 TBIL 1.6* 04/21/2013 ALKPHOS 218* 04/21/2013 LABALBU 3.5 04/21/2013 [facility] (10/23/14) HCV RNA 20578 IU/mL WBC: 4.24 Platelet count: 72 AST: 112 ALT: 102 Total bilirubin: 1.7 Albumin: 2.6 Abdominal US: Findings consistent with hepatic cirrhosis. Small quantity of free subdiaphragmatic fluid. (No mention of hepatic masses) Impression: 1. Relapse of HCV after 12 weeks of Sof/PegIFN/riba in cirrhotic patient Mr. Freeman is a 38yo man with anxiety and cirrhosis secondary to alcohol abuse and HCV. He has beensober for > 2 years and underwent Sof/PegIFN/riba therapy for HCV. Mr. Freeman has rapid decline in HCV RNA which persisted at weeks 8 and 12 of treatment. Unfortunately, he appears to have had a relapse of HCV 12 weeks after cessation of therapy. It is possible that his treatment duration was insufficient, as some data suggest patients with cirrhosis be treated for 24 weeks. Despite this, there isdata on the newest anti-HCV medication (Harvoni: combi-pill of sofosbuvir and ledipasvir) which shows good sustained response rates among patients who failed prior sofosbuvir-based therapy. As a result, will obtain prior authorization from his insurance company for Harvoni, and begin therapy once it is granted. In the meantime, will continue surveillance for HCC in this young man with cirrhosis Plan: 1. Obtain prior authorization for Harvanand 2. Begin therapy once authorization is granted 3. Liver panel and abdominal US in 6 months 4. Follow up in 3 months documented in this encounter Plan of Treatment Not on filedocumented as of this encounter Visit Diagnoses Diagnosis Chronic hepatitis C with cirrhosis (HCC- CMS) (HCC) - Primary Chronic hepatitis C without mention of h epatic coma documented in this encounter Care Teams Mounting Machine Operator Relationship Specialty Start Date End Date Moy Mcnair MD PCP - General 08/07/11 [address] [place] [address] documented as of this encounter
--- OUTSIDE RECORDS SUMMARY | 2022-09-20 09:59 | XMS_ITS | Encounter Summary ---
:1975 Author Organization [facility] Address [address] [place] [address] Care Team Providers Name Role Phone Moy Mcnair MD Primary Care Provider Encounter Details Date Type Department Care Team Description 05/19/2014 Documentation Visit [facility] León Jalloh, Mood & Anxiety - S [facility] [id number] [place] [address] [place] [address] (Wo rk) Social History Tobacco Use Types [...] on filedocumented in this encounter Care Teams Geophysical Engineer Relationship Specialty Start Date End Date Moy Mcnair MD PCP - General 08/07/11 [address] [place] [address] documented as of this encounter
--- OUTSIDE RECORDS SUMMARY | 2022-09-20 10:00 | XMS_ITS | Encounter Summary ---
:1975 Author Organization [facility] Address [address] [place] [address] Care Team Providers Name Role Phone Moy Mcnair MD Primary Care Provider Encounter Details Date Type Department Care Team Description 01/08/2012 Phlebotomy Only [facility] - First Aid Officer, Hep [facility] Outpatient [address] [place] [address] Social History Tobacco Use Types Packs/Day Years Used Date Smoking Tobacco: Never Smokeless Tobacco: Former Alcohol Use Standard Drinks/Week Comments No 0 (1 standard drink = 0.6 oz pure alcoho l) Sex Assigned at Date Recorded Not on file documented as of this encounter Plan of Treatment Not on filedocumented as of this encounter Procedures Procedure Name Priority Date/Time Associated Comments Diagnosis IBC Routine 01/08/2012 14:45 Hepatitis C Results for this EDT procedure are i n the results section. MITOCHONDRIAL IGG Routine 01/08/2012 14:45 Hepatitis C Result s for this ANTIBODY EDT procedure are i n the results section. TISSUE TRANSGLUTAMINASE Routine 01/08/2012 14:45 Hepatitis C Results for this AB EDT procedure are i n the results section. CERULOPLASMIN, S Routine 01/08/2012 14:45 Hepatitis C Results for this EDT procedure are i n the results section. IGA Routine 01/08/2012 14:45 Hepatitis C Results for this EDT procedure are i n the results section. ACTIN IGG AB LOGAN Routine 01/08/2012 14:45 Hepatitis C Resul ts for this EDT procedure are i n the results section. PROTIME Routine 01/08/2012 14:45 Hepatitis C Results for this EDT procedure are i n the results section. COMPLETE BLOOD COUNT AND Routine 01/08/2012 14:45 Hepatitis C Results for this DIFFERENTIAL EDT procedure are i n the results section. ANTI NUCLEAR AB (GABY), Routine 01/08/2012 14:45 Hepatitis C R esults for this IFA EDT procedure are i n the results section. TSH Routine 01/08/2012 14:45 Hepatitis C Results for this EDT procedure are i n the results section. SPEP, INCLUDES Routine 01/08/2012 14:45 Hepatitis C Results f or this QUANTITATION OF EDT procedure ar e in MONOCLONAL SPIKE the results section. IRON Routine 01/08/2012 14:45 Hepatitis C Results for this EDT procedure are i n the results section. FERRITIN Routine 01/08/2012 14:45 Hepatitis C Results for this EDT procedure are i n the results section. HEPATIC FUNCTION PANEL Routine 01/08/2012 14:45 Hepatitis C R esults for this (ALB,ALK EDT procedure are i n PHOS,ALT,AST,DBIL,TOT the re sults [place],TOT PROT) section. documented in this encounter Results PROTIME (01/08/2012 14:45 EDT) athologist Signature Pro Time 11.8 9.5 - 13.1 [facility] secs LAB I.N.R. 1.0 0.9 - 1.1 [facility] Ratio LAB Comment: Moderate Intensity Coumadin INR = 2.0-3. 0 Adjustments in anticoagulant therapy dos e should be based upon the INR and NOT the Pro Ti me. Specimen Anatomical Collection Method Collection Time Receive d Time (Source) Location / / Volume Laterality Blood specimen 01/08/2012 14:45 2 (specimen) EDT 15:10 EDT Stefany Tracey MD HEMATOLOGY & PF4 ORDERABLES Performing Organization Address City/State/ZIP Code Phon e Number [facility] [address] [place] [address] SERVICES [facility] [address] [place] [address] (ABNORMAL) IGA (01/08/2012 14:45 EDT) athologist Signature IgA 52 (L) 82 - 453 [facility] mg/dl LAB Specimen Anatomical Collection Method Collection Time Receive d Time (Source) Location / / Volume Laterality Blood specimen 01/08/2012 14:45 2 (specimen) EDT 15:10 EDT Stefany Tracey MD CHEMISTRY & BLOOD GAS ORDERA BLES Performing Organization Address City/[facility]/ZIP Code Phon e Number [facility] [address] [place] [address] SERVICES [facility] [address] [place] [address] IBC (01/08/2012 14:45 EDT) athologist Signature TIBC 319 261 - 462 [facility] ug/dl LAB Specimen Anatomical Collection Method Collection Time Receive d Time (Source) Location / / Volume Laterality Blood specimen 01/08/2012 14:45 2 (specimen) EDT 15:10 EDT Stefany Tracey MD CHEMISTRY & BLOOD GAS ORDERA BLES Performing Organization Address [facility]/ZIP Code Phon e Number [facility] [address] [place] [address] SERVICES [facility] [address] [place] [address] CERULOPLASMIN (01/08/2012 14:45 EDT) athologist Signature Cerulplasmin 20.5 15.0 - 30.0 [facility] mg/dL LAB Comment: Performed or Referred by: [facility] Path, [address] [place] [id number], Lab Dir: Frankfady in Diony Murray III, MD Specimen Anatomical Collection Method Collection Time Receive d Time (Source) Location / / Volume Laterality Blood specimen 01/08/2012 14:45 2 (specimen) EDT 15:10 EDT Stefany Tracey MD CHEMISTRY & BLOOD GAS ORDERA BLES Performing Organization Address City/[facility]/ZIP Code Phon e Number [facility] [address] [place] [address] SERVICES [facility] [address] [place] [address] (ABNORMAL) LIVER FUNCTION TESTS (01/08/2012 14:45 EDT) Patholo gist Method Time Signature Albumin 3.8 3.4 - 4.9 [place] g/dl [facility] Total Protein 7.4 6.5 - 8.3 [place] g/dl [facility] Total Alkaline 120 38 - 126 [place] Phosphatase U/L [facility] ALT 190 (H) 21 - 72 [place] U/L [facility] AST 172 (H) 15 - 46 [place] U/L [facility] Unconjugated 0.6 0.1 - 1.1 [place] Bilirubin mg/dl [facility] Conjugated 0.0 0.0 - 0.3 [place] Bilirubin mg/dl [facility] Bilirubin, Total 0.7 0.2 - 1.3 [place] mg/dl [facility] Specimen Anatomical Collection Method Collection Time Receive d Time (Source) Location / / Volume Laterality Blood specimen 01/08/2012 14:45 2 (specimen) EDT 15:10 EDT Mario Bailey APRN CHEMISTRY & BLOOD GAS FILIPE HUNTER Performing Organization Address City/[facility]/ZIP Code Phon e Number [facility] [address] [place] [address] SERVICES [facility] [address] [place] [address] TTG AB, IGA, S (01/08/2012 14:45 EDT) athologist Signature tTG Ab, IgA, S <1.2 <4.0 [facility] (Negative) LAB U/mL Comment: Performed by: [facility], [address], [place] [address], Waistline Joiner Overlock: Slime Wiggins, Ph.D. Specimen Anatomical Collection Method Collection Time Receive d Time (Source) Location / / Volume Laterality Blood specimen 01/08/2012 14:45 2 (specimen) EDT 15:10 EDT Stefany Tracey MD IMMUNOLOGY AND SEROLOGY WILLIAM LIEBERMAN Performing Organization Address City/[facility]/ZIP Code Phon e Number [facility] [address] [place] [address] SERVICES [facility] [address] [place] [address] TSH (01/08/2012 14:45 EDT) P athologist Signature TSH 1.31 0.35 - 5.00 [facility] uIU/ml LAB Specimen Anatomical Collection Method Collection Time Receive d Time (Source) Location / / Volume Laterality Blood specimen 01/08/2012 14:45 2 (specimen) EDT 15:10 EDT Stefany Tracey MD CHEMISTRY & BLOOD GAS ORDERA BLES Performing Organization Address City/State/ZIP Code Phon e Number [facility] [address] [place] [address] SERVICES [facility] [address] [place] [address] SMOOTH MUSCLE ANTIBODY (01/08/2012 14:45 EDT) P athologist Signature Smooth Muscle <20 <20 Dils [facility] Ab LAB Specimen Anatomical Collection Method Collection Time Receive d Time (Source) Location / / Volume Laterality Blood specimen 01/08/2012 14:45 2 (specimen) EDT 15:10 EDT Stefany Tracey MD IMMUNOLOGY AND SEROLOGY WILLIAM LIEBERMAN Performing Organization Address City/[facility]/ZIP Code Phon e Number [facility] [address] [place] [address] SERVICES [facility] [address] [place] [address] (ABNORMAL) HEMAGRAM AND DIFFERENTIAL (01/08/2012 14:45 EDT) [facility] gist Method Time Signature WBC 4.32 4.0 - [place] 10.4 [facility] K/cmm RBC 4.61 4.36 - [place] 5.78 [facility] M/cmm Hemoglobin 15.5 13.8 - [place] 17.3 [facility] gm/dl HCT 44.3 39.5 - [place] 50.2 % [facility] MCV 96 (H) 81 - 95 [place] fl [facility] MCH 33.7 (H) 27.6 - [place] 33.0 pg [facility] MCHC 35.0 32.8 - [place] 36.4 [facility] gm/dl PLT 86 (L) 141 - 320 [place] K/cmm [facility] RDW-CV 12.7 11.8 - [place] 14.1 % [facility] Neutrophils 76.2 45.5 - [place] 79.7 % [facility] Lymphocytes 15.8 15.0 - [place] 46.8 % [facility] Monocytes 7.4 1.8 - [place] 12.0 % [facility] Eosinophils 0.4 (L) 0.6 - 6.9 [place] % [facility] Basophils 0.2 0.2 - 1.4 [place] % [facility] ABS Neutrophils 3.29 2.20 - [place] 8.85 [facility] K/cmm ABS Lymphs 0.68 (L) 1.09 - [place] 3.30 [facility] K/cmm ABS Monocytes 0.32 0.1 - 0.8 [place] K/cmm [facility] ABS Eosinophils 0.02 (L) 0.03 - [place] 0.61 [facility] K/cmm ABS Basophils 0.01 0.01 - [place] 0.11 [facility] K/cmm Type of Diff: Automated [facility] Specimen Anatomical Collection Method Collection Time Receive d Time (Source) Location / / Volume Laterality Blood specimen 01/08/2012 14:45 2 (specimen) EDT 15:10 EDT Stefany Tracey MD PACKAGES & DNA PROBE ORDERAB LES Performing Organization Address City/State/ZIP Code Phon e Number [facility] [address] [place] [address] SERVICES [facility] [address] [place] [address] (ABNORMAL) FERRITIN (01/08/2012 14:45 EDT) athologist Signature Ferritin 647 (H) 22 - 322 [facility] ng/mL LAB Specimen Anatomical Collection Method Collection Time Receive d Time (Source) Location / / Volume Laterality Blood specimen 01/08/2012 14:45 2 (specimen) EDT 15:10 EDT Stefany Tracey MD CHEMISTRY & BLOOD GAS ORDERA BLES Performing Organization Address City/State/ZIP Code Phon e Number [facility] [address] [place] [address] SERVICES [facility] [address] [place] [address] MITOCHONDRIAL ANTIBODY (01/08/2012 14:45 EDT) athologist Signature Mitochondrial Ab <20 <20 Dils [facility] Specimen Anatomical Collection Method Collection Time Receive d Time (Source) Location / / Volume Laterality Blood specimen 01/08/2012 14:45 2 (specimen) EDT 15:10 EDT Stefany Tracey MD IMMUNOLOGY AND SEROLOGY ORDE RABLES Performing Organization Address City/[facility]/ZIP Code Phon e Number [facility] [address] [place] [address] SERVICES [facility] [address] [place] [address] (ABNORMAL) ELECTROPHORESIS, SERUM (01/08/2012 14:45 EDT) Patholo gist Method Time Signature Total Protein 7.4 6.5 - 8.3 [place] g/dl [facility] Albumin, SPEP 49.4 47.6 - [place] 61.9 % [facility] Alpha-1 % 3.5 1.4 - 4.6 [place] % [facility] Alpha 2, SPEP 8.7 7.3 - [place] 13.9 % [facility] Beta, SPEP 10.3 (L) 10.9 - [place] 19.1 % [facility] Gamma, SPEP 28.0 (H) 9.5 - [place] 24.8 % [facility] Comments, Polyclonal [facility] SPEP increase in [facility] immunoglobulin s. Comment: See Pathology Scanned Report in [employer]. Specimen Anatomical Collection Method Collection Time Receive d Time (Source) Location / / Volume Laterality Blood specimen 01/08/2012 14:45 2 (specimen) EDT 15:10 EDT Stefany Tracey MD CHEMISTRY & BLOOD GAS ORDERA BLES Performing Organization Address [facility]/ZIP Code Phon e Number [facility] [address] [place] [address] SERVICES [facility] [address] [place] [address] ANTI NUCLEAR ANTIBODY (01/08/2012 14:45 EDT) P athologist Signature Anti Nuclear Ab <40 0 - 40 [facility] Dils LAB Specimen Anatomical Collection Method Collection Time Receive d Time (Source) Location / / Volume Laterality Blood specimen 01/08/2012 14:45 2 (specimen) EDT 15:10 EDT Stefany Tracey MD IMMUNOLOGY AND SEROLOGY WILLIAM LIEBERMAN Performing Organization Address City/[facility]/ZIP Code Phon e Number [facility] [address] [place] [address] SERVICES [facility] [address] [place] [address] (ABNORMAL) IRON (01/08/2012 14:45 EDT) P athologist Signature Iron 190 (H) 70 - 180 [facility] ug/dl LAB Specimen Anatomical Collection Method Collection Time Receive d Time (Source) Location / / Volume Laterality Blood specimen 01/08/2012 14:45 2 (specimen) EDT 15:10 EDT Stefany Tracey MD CHEMISTRY & BLOOD GAS ORDERA BLES Performing Organization Address City/State/ZIP Code Phon e Number [facility] [address] [place] [address] SERVICES [facility] [address] [place] [address] documented in this encounter Visit Diagnoses Diagnosis Hepatitis C Unspecified viral hepatitis C without he patic coma documented in this encounter Care Teams Medical Coding Instructor Relationship Specialty Start Date End Date Moy Mcnair MD PCP - General 08/07/11 [address] [place] [address] documented as of this encounter
--- OUTSIDE RECORDS SUMMARY | 2022-09-20 10:00 | XMS_ITS | Encounter Summary ---
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) [address] [address] [address] [address] [place] [phone] (Wo rk) Social History Tobacco Use Types Packs/Day Years Used Date Smoking Tobacco: Never Smokeless Tobacco: Former Alcohol Use Standard Drinks/Week Comments No 0 (1 standard drink = 0.6 oz pure alcoho l) Sex Assigned at Date Recorded Not on file documented as of this encounter Plan of Treatment Not on filedocumented as of this encounter Visit Diagnoses Diagnosis Generalized anxiety disorder - Primary documented in this encounter Care Teams Software Engineer Relationship Specialty Start Date End Date Moy Mcnair MD PCP - General 08/07/11 [address] [place] [address] documented as of this encounter
--- OUTSIDE RECORDS SUMMARY | 2022-09-20 10:00 | XMS_ITS | Encounter Summary ---
:1975 Author Organization [facility] Address [address] [place] [address] Care Team Providers Name Role Phone Moy Mcnair MD Primary Care Provider Reason for Visit Reason Comments Anxiety Encounter Details Date Type Department Care Team Description 08/18/2012 Office Visit [facility] Santiago Bailey APRN EMILEE (generalized Psychiatry - S [address] anxiety disorder) [facility] (Primary Dx) [address] [place] [phone] [place], [place] [phone] (Wo rk) [id number] [phone] Social History Tobacco Use Types Packs/Day Years Used Date Smoking Tobacco: Never Smokeless Tobacco: Former Alcohol Use Standard Drinks/Week Comments No 0 (1 standard drink = 0.6 oz pure alcoho l) Sex Assigned at Date Recorded Not on file documented as of this encounter Progress Notes Mario Bailey APRN - 08/18/[address] [facility] Psychiatry Service - E/M Follow-Up Visit Chief Complaint Patient presents with ??? Depression History of Present Illness/Clinical Update: 1.) Mood Changes: anxious and fearful (but improved) 2.) Sleep Changes: patient denies any changes, sleeping well 3.) Appetite Changes: increased appetite and attempting to lose weight 4.) Depressive Symptoms: somatic preoccupations 5.) Anxiety Symptoms: none 6.) Manic/Impulsive/Attentional Symptoms: none 7.) Psychotic Symptoms: none 8.) Suicidality/Homicidality: current thoughts of suicide: no plan? no intent? no current self-harm thoughts? no homicidal thoughts? no need for contact? No is patient committed to a goal of survival? Yes Timi returns for a medication checkup. He notes that within one week after increasing the dose of mirtazapine to 45mg, he felt a lot calmer. He has had a few waves of anxiety, but these have not escalated and become panic attacks. He denies any adverse effects from the increased dose other than an increased appetite. He notes that if he sleeps 7 hours a night, his energy level during the day is good. He is hoping to start treatment with telaprevir plus PegIFN/riba under the guidance of Dr. Tracey within the next few weeks. Psychiatric, Medical, Family and/or Social History: Refer to [facility] Psychiatry Service Admission Assessment (date): 08/12/11 and 08/20/11 Additional Information/Interval change/Update: As mentioned above and in Subjective, all other Review of Systems reviewed and negative. Current Medications: Current Outpatient Prescriptions Medication Sig Dispense Refill ??? mirtazapine (REMERON) 45 mg tablet Take 1 Tab by mouth daily. 30 Tab 2 ??? multivitamin (THERAGRAN) per tablet Take 1 Tab by mouth daily. ??? metoprolol (LOPRESSOR) 25 mg tablet Take 25 mg by mouth daily. Laboratory Studies: None Vital Signs: There were no vitals taken for this visit. Mental Status Exam: Orientation: person, time, place and situation Attention/ Concentration: intact Appearance: WNL Behavior: cooperative, tense and good eye contact Speech: normal rate and tone Psychomotor Activity: normal Musculoskeletal: no abnormality Gait: no abnormality Capacity for ADLs: adequate Mood: Way better (euthymic) Affect: congruent with mood and full range Thought process: goal directed and tight associations Thought content: intact Perceptual Disturbances: no hallucinations Impulses: no suicidal ideation and no homicidal ideation Insight: good Judgement: good Language: adequate Fund of Knowledge: sales representative jewelry of education level Short-term Memory: intact Long-term Memory: intact Capacity for Abstraction: intact Assessment/Plan (Comment on Complicating Factors & Risk of Harm): Timi Freeman is a 36 year old man with Hepatitis C and cirrhosis was previously treated in the clinic for anxiety that is generalized in nature. He returns for follow up care at the request of Dr. Tracey who will begin treating him with telaprevir plus PegIFN/riba in the next few weeks. Athis last visit, he presented with considerable anxiety, and we discussed increasing his dose of mirtazapine to 45mg daily. He notes a positive effect on his mood and anxiety level with the increased dose. He will return to the clinic for a follow up visit 2 weeks after he begins treatment with Dr. Tracey. 1) Continue mirtazapine to 45mg daily. 2) Continue M&A protocol. (No groups). 3) With Timi's permission, I have unsensitized this note and copied it to Dr. Tracey in orderto coordinate care. 4) Return 2 weeks after beginning treatment for a medication check up. Side effect profile of medications ordered, discuess with patient., Risks vs Benefits of recommendedtreatment discussed with patient., Alternative treatments discussed with patient., Instructions for treatment and follow-up provided to patient., Importance of adherence with chosen treatment option was discussed with patient., Risk factor reduction discussed with patient. and Patient and family education provided documented in this encounter Plan of Treatment Not on filedocumented as of this encounter Visit Diagnoses Diagnosis EMILEE (generalized anxiety disorder) - Cahntal perera Generalized anxiety disorder documented in this encounter Care Teams Turret Lathe Machinist Relationship Specialty Start Date End Date Moy Mcnair MD PCP - General 08/07/11 [address] [place] [address] documented as of this encounter
--- OUTSIDE RECORDS SUMMARY | 2022-09-20 10:00 | XMS_ITS | Encounter Summary ---
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) [address] [address] [place] [address] [place] [phone] (Wo rk) Social History Tobacco Use Types Packs/Day Years Used Date Smoking Tobacco: Never Alcohol Use Standard Drinks/Week Comments No 0 (1 standard drink = 0.6 oz pure alcoho l) Sex Assigned at Date Recorded Not on file documented as of this encounter Plan of Treatment Not on filedocumented as of this encounter Visit Diagnoses Diagnosis Generalized anxiety disorder - Primary documented in this encounter Care Teams Pension Fund Manager Relationship Specialty Start Date End Date Moy Mcnair MD PCP - General 08/07/11 [address] [place] [address] documented as of this encounter
--- OUTSIDE RECORDS SUMMARY | 2022-09-20 10:00 | XMS_ITS | Encounter Summary ---
:1975 Author Organization [facility] Address [address] [place] [address] Care Team Providers Name Role Phone Moy Mcnair MD Primary Care Provider Encounter Details Date Type Department Care Team Description 04/21/2013 Phlebotomy Only [facility] Practicing Dermatologist, Chron ic hepatitis C - [facility] [place] [facility]patient with cirrhosis [address] [facility] [place] [address] Social History Tobacco Use Types Packs/Day Years Used Date Smoking Tobacco: Never Smokeless Tobacco: Former Alcohol Use Standard Drinks/Week Comments No 0 (1 standard drink = 0.6 oz pure alcoho l) Sex Assigned at Date Recorded Not on file documented as of this encounter Plan of Treatment Not on filedocumented as of this encounter Procedures Procedure Name Priority Date/Time Associated Comments Diagnosis HCV RNA DETECT QUANT Routine 04/21/2013 14:03 Chronic hepatiti s C Results for this EDT with cirrhosis procedure are in ([facility]) the results section. AFP TUMOR MARKER Routine 04/21/2013 14:03 Chronic hepatitis C Results for this EDT with cirrhosis procedure are in (CMS-HCC) the results section. BUN Routine 04/21/2013 14:03 Chronic hepatitis C Resu lts for this EDT with cirrhosis procedure are in (CMS-HCC) the results section. TSH Routine 04/21/2013 14:03 Chronic hepatitis C Resu lts for this EDT with cirrhosis procedure are in (CMS-HCC) the results section. CREATININE Routine 04/21/2013 14:03 Chronic hepatitis C Resu lts for this EDT with cirrhosis procedure are in (CMS-HCC) the results section. HEPATIC FUNCTION Routine 04/21/2013 14:03 Chronic hepatitis C Results for this PANEL (ALB,ALK EDT with cirrhosis procedure a re in PHOS,ALT,AST,DBIL,TO (CMS-HCC) the res ults T [place],TOT PROT) section. documented in this encounter Results TSH (04/21/2013 14:03 EDT) athologist Signature TSH 1.13 0.35 - 5.00 [facility] uIU/ml LAB Specimen Anatomical Collection Method Collection Time Receive d Time (Source) Location / / Volume Laterality Blood specimen 04/21/2013 14:03 3 (specimen) EDT 14:14 EDT Stefany Tracey MD CHEMISTRY & BLOOD GAS ORDERA BLES Performing Organization Address City/[facility]/ZIP Code Phon e Number [facility] [address] [place] [address] SERVICES [facility] [address] [place] [address] HCV RNA DETECT QUANT (04/21/2013 14:03 EDT) athologist Signature HCV RNA Detect [id number] IU/mL [facility] Quant LAB Comment: Reference Range: ??Undetected The quantification range of this assay i s 43 IU/mL to 69,000,000 IU/mL. Testing was performed by the [facility] Amplip[employer]/Hannah TaqMan HCV Test ([employer] Specimen Anatomical Collection Method Collection Time Receive d Time (Source) Location / / Volume Laterality Blood specimen 04/21/2013 14:03 3 (specimen) EDT 14:14 EDT Stefany Tracey MD CHEMISTRY & BLOOD GAS ORDERA BLES Performing Organization Address City/[facility]/ZIP Code Phon e Number [facility] [address] [place] [address] SERVICES [facility] [address] [place] [address] (ABNORMAL) CREATININE (04/21/2013 14:03 EDT) Analysis Performed At Patho logist Time Signature Creatinine 0.65 (L) 0.66 - [facility] 1.25 mg/dl [facility] GFR, Calculated >60 >60 [facility] ml/min/1.7 [facility] 3m2 Specimen Anatomical Collection Method Collection Time Receive d Time (Source) Location / / Volume Laterality Blood specimen 04/21/2013 14:03 3 (specimen) EDT 14:14 EDT Stefany Tracey MD CHEMISTRY & BLOOD GAS ORDERA BLES Performing Organization Address City/[facility]/ZIP Code Phon e Number [facility] [address] [place] [address] SERVICES [facility] [address] [place] [address] BUN (04/21/2013 14:03 EDT) P athologist Signature BUN 13 10 - 26 [facility] mg/dl LAB Specimen Anatomical Collection Method Collection Time Receive d Time (Source) Location / / Volume Laterality Blood specimen 04/21/2013 14:03 3 (specimen) EDT 14:14 EDT Stefany Tracey MD CHEMISTRY & BLOOD GAS ORDERA BLES Performing Organization Address [facility] Phon e Number [facility] [address] [place] [address] SERVICES [facility] [address] [place] [address] (ABNORMAL) AFP TUMOR MARKER (04/21/2013 14:03 EDT) Analysis Performed At Patho logist Time Signature AFP-Tumor 125.8 (H) <9 ng/ml [facility] Comment: Reference value is less than 9 in 98.9% of healthy subjects. AFP tumor marker cannot be interpreted i n females. Serum AFP concentration should not be interpreted as absolute evidence for the presence or absence of malignant disease . Assayed utilizing [employer] nt technology. ??Values obtained by using different assay methods cannot be used interchangeably. Specimen Anatomical Collection Method Collection Time Receive d Time (Source) Location / / Volume Laterality Blood specimen 04/21/2013 14:03 3 (specimen) EDT 14:14 EDT Stefany Tracey MD CHEMISTRY & BLOOD GAS ORDERA BLES Performing Organization Address City/[facility]/ZIP Code Phon e Number [facility] [address] [place] [address] SERVICES [facility] [address] [place] [address] (ABNORMAL) LIVER FUNCTION TESTS (04/21/2013 14:03 EDT) Patholo gist Method Time Signature Albumin 3.5 3.4 - 4.9 [facility] g/dl [facility] Total Protein 7.1 6.5 - 8.3 [facility] g/dl [facility] Total Alkaline 218 (H) 38 - 126 [facility] Phosphatase U/L [facility] ALT 139 (H) 21 - 72 [facility] U/L [facility] AST 147 (H) 15 - 46 [facility] U/L [facility] Unconjugated 0.8 0.1 - 1.1 [facility] Bilirubin mg/dl [facility] Conjugated 0.0 0.0 - 0.3 [facility] Bilirubin mg/dl [facility] Bilirubin, Total 1.6 (H) 0.2 - 1.3 [facility] mg/dl [facility] Specimen Anatomical Collection Method Collection Time Receive d Time (Source) Location / / Volume Laterality Blood specimen 04/21/2013 14:03 3 (specimen) EDT 14:14 EDT Stefany Tracey MD CHEMISTRY & BLOOD GAS ORDERA BLES Performing Organization Address City/State/ZIP Code Phon e Number [facility] [address] [place] [address] SERVICES [facility] [address] [place] [address] documented in this encounter Visit Diagnoses Diagnosis 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
--- OUTSIDE RECORDS SUMMARY | 2022-09-20 10:00 | XMS_ITS | Encounter Summary ---
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
--- OUTSIDE RECORDS SUMMARY | 2022-09-20 10:00 | XMS_ITS | Encounter Summary ---
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) [address] [address] [place] [address] [place] [phone] (Wo rk) Social History Tobacco Use Types Packs/Day Years Used Date Smoking Tobacco: Never Alcohol Use Standard Drinks/Week Comments No 0 (1 standard drink = 0.6 oz pure alcoho l) Sex Assigned at Date Recorded Not on file documented as of this encounter Miscellaneous Notes Scanned Note-Null - Mechanical Press Operator, Scan - 11/12/2011 0802 EST documented in this encounter Plan of Treatment Not on filedocumented as of this encounter Visit Diagnoses Diagnosis Generalized anxiety disorder - Primary documented in this encounter Care Teams Director Of Operations For Therapy Relationship Specialty Start Date End Date Moy Mcnair MD PCP - General 08/07/11 [address] [place], [place] [id number] documented as of this encounter
--- OUTSIDE RECORDS SUMMARY | 2022-09-20 10:00 | XMS_ITS | Encounter Summary ---
:1975 Author Organization [facility] Address [address] [place] [address] Care Team Providers Name Role Phone Moy Mcnair MD Primary Care Provider Encounter Details Date Type Department Care Team Description 02/13/2012 Documentation Visit [facility] León Jalloh, Mood & Anxiety - S [facility] [phone] [place] [address] [place] [address] (Wo rk) Social History Tobacco Use Types [...] on filedocumented in this encounter Care Teams Balance Staff Inspector Relationship Specialty Start Date End Date Moy Mcnair MD PCP - General 08/07/11 [address] [place] [address] documented as of this encounter
--- OUTSIDE RECORDS SUMMARY | 2022-09-20 10:00 | XMS_ITS | Encounter Summary ---
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
--- OUTSIDE RECORDS SUMMARY | 2022-09-20 10:00 | XMS_ITS | Encounter Summary ---
:1975 Author Organization [facility] Address [address] [place] [address] Care Team Providers Name Role Phone Moy Mcnair MD Primary Care Provider Encounter Details Date Type Department Care Team Description 01/12/2012 Hospital Encounter [facility] [address] [facility] [address] [place] [address] [facility] [phone] [place] [place] [place] [address] (Wo rk) Social History Tobacco Use Types Packs/Day Years Used Date Smoking Tobacco: Never Smokeless Tobacco: Former Alcohol Use Standard Drinks/Week Comments No 0 (1 standard drink = 0.6 oz pure alcoho l) Sex Assigned at Date Recorded Not on file documented as of this encounter Medications at Time of Discharge Medication Sig Dispensed Refills Start Date End Date multivitamin (THERAGRAN) Take 1 Tab by mouth 0 per tablet daily. metoprolol (LOPRESSOR) 25 Take 25 mg by mouth 0 11/17/2012 mg tablet daily. mirtazapine (REMERON) 30 Take 1 Tab by mouth 30 Tab 2 02/26/2012 mg tablet daily. documented as of this encounter Discharge Disposition Disposition Code Departure Means Destination Home or Self Care documented in this encounter Plan of Treatment Not on filedocumented as of this encounter Visit Diagnoses Not on filedocumented in this encounter Care Teams Infection Control Manager Relationship Specialty Start Date End Date Moy Mcnair MD PCP - General 08/07/11 [address] [place], [place] [phone] documented as of this encounter
--- OUTSIDE RECORDS SUMMARY | 2022-09-20 10:00 | XMS_ITS | Encounter Summary ---
:[address] [facility] Address [address] [place] [address] Care Team Providers Name Role Phone Moy Mcnair MD Primary Care Provider Reason for Visit Reason Comments Anxiety Encounter Details Date Type Department Care Team Description 10/12/2011 Documentation Visit [facility] León Jalloh, Mood & Anxiety - S [facility] [phone] [place] [address] [place] [phone] (Wo rk) Social History Tobacco Use Types Packs/Day Years Used Date Smoking Tobacco: Never Alcohol Use Standard Drinks/Week Comments No 0 (1 standard drink = 0.6 oz pure alcoho l) Sex Assigned at Date Recorded Not on file documented as of this encounter Plan of Treatment Not on filedocumented as of this encounter Visit Diagnoses Not on filedocumented in this encounter Care Teams Fuse Spooler Relationship Specialty Start Date End Date Moy Mcnair MD PCP - General 08/07/11 [address] [place], [place] [phone] documented as of this encounter
--- OUTSIDE RECORDS SUMMARY | 2022-09-20 10:00 | XMS_ITS | Encounter Summary ---
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
--- OUTSIDE RECORDS SUMMARY | 2022-09-20 10:00 | XMS_ITS | Encounter Summary ---
:[address] [facility] Address [address] [place] [address] Care Team Providers Name Role Phone Moy Mcnair MD Primary Care Provider Encounter Details Date Type Department Care Team Description 07/12/2012 Orders Only [facility] Alexy Stefany Trent is of liver Gastroenterology - 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
--- OUTSIDE RECORDS SUMMARY | 2022-09-20 10:00 | XMS_ITS | Encounter Summary ---
:1975 Author Organization [facility] Address [address] [place] [address] Care Team Providers Name Role Phone Moy Mcnair MD Primary Care Provider Reason for Visit Reason Onset Date Comments Other 10/31/2013 Encounter Details Date Type Department Care Team Description 10/31/2013 Telephone [facility] Carey Tracey MD Other Gastroenterology - [address], [address], [address] [place], [place] [address] [place] [address] [phone] (Wo rk) Social History Tobacco Use Types Packs/Day Years Used Date Smoking Tobacco: Never Smokeless Tobacco: Former Alcohol Use Standard Drinks/Week Comments No 0 (1 standard drink = 0.6 oz pure alcoho l) Sex Assigned at Date Recorded Not on file documented as of this encounter Miscellaneous Notes Telephone Encounter - Slime Contreras RN - 10/31/2013 9213 EST Left message for the patient that the [facility] dep,t at [facility] has the u/s request on file to be done early this month , they will contact the patient today to schedule & have asked the patient to call us back to confirm he has been scheduled. documented in this encounter Plan of Treatment Not on filedocumented as of this encounter Visit Diagnoses Not on filedocumented in this encounter Care Teams Media Executive Relationship Specialty Start Date End Date Moy Mcnair MD PCP - General 08/07/11 [address] [place] [address] documented as of this encounter
--- OUTSIDE RECORDS SUMMARY | 2022-09-20 10:00 | XMS_ITS | Encounter Summary ---
:1975 Author Organization [facility] Address [address] [place] [address] Care Team Providers Name Role Phone Moy Mcnair MD Primary Care Provider Encounter Details Date Type Department Care Team Description 11/17/2012 Phlebotomy Only [facility] Shipping Order Clerk, Chron ic hepatitis C - [facility] Outpatient with cirrhosis [address] [facility] ([facility] [place] [address] Social History Tobacco Use Types Packs/Day Years Used Date Smoking Tobacco: Never Smokeless Tobacco: Former Alcohol Use Standard Drinks/Week Comments No 0 (1 standard drink = 0.6 oz pure alcoho l) Sex Assigned at Date Recorded Not on file documented as of this encounter Plan of Treatment Not on filedocumented as of this encounter Procedures Procedure Name Priority Date/Time Associated Diagnosis Comme nts HEPATIC FUNCTION Routine 11/17/2012 12:02 Chronic hepatitis C Results for this PANEL (ALB,ALK EST with cirrhosis procedure a re in PHOS,ALT,AST,DBIL,T ([facility]) the resu lts OT [place],TOT PROT) section. documented in this encounter Results (ABNORMAL) LIVER FUNCTION TESTS (11/17/2012 12:02 EST) [facility] Method Time Signature Albumin 3.6 3.4 - 4.9 [facility] g/dl [facility] Total Protein 7.6 6.5 - 8.3 [facility] g/dl [facility] Total Alkaline 176 (H) 38 - 126 [facility] Phosphatase U/L [facility] ALT 164 (H) 21 - 72 [facility] U/L [facility] AST 190 (H) 15 - 46 [facility] U/L [facility] Unconjugated 1.0 0.1 - 1.1 [facility] Bilirubin mg/dl [facility] Conjugated 0.0 0.0 - 0.3 [facility] Bilirubin mg/dl [facility] Bilirubin, Total 1.5 (H) 0.2 - 1.3 [facility] mg/dl [facility] Specimen Anatomical Collection Method Collection Time Receive d Time (Source) Location / / Volume Laterality Blood specimen 11/17/2012 12:02 3 (specimen) EST 12:24 EST Stefany Tracey MD CHEMISTRY & BLOOD GAS ORDERA BLES Performing Organization Address City/State/ZIP Code Phon e Number [facility] [address] [place] [address] SERVICES [facility] [address] [place] [address] documented in this encounter Visit Diagnoses Diagnosis 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
--- OUTSIDE RECORDS SUMMARY | 2022-09-20 10:00 | XMS_ITS | Encounter Summary ---
:1975 Author Organization [facility] Address [address] [place] [address] Care Team Providers Name Role Phone Moy Mcnair MD Primary Care Provider Encounter Details Date Type Department Care Team Description 07/08/2012 Phlebotomy Only [facility] Laborer [facility] Outpatient due to hepatitis C [address] [place] [address] Social History Tobacco Use Types Packs/Day Years Used Date Smoking Tobacco: Never Smokeless Tobacco: Former Alcohol Use Standard Drinks/Week Comments No 0 (1 standard drink = 0.6 oz pure alcoho l) Sex Assigned at Date Recorded Not on file documented as of this encounter Plan of Treatment Not on filedocumented as of this encounter Procedures Procedure Name Priority Date/Time Associated Diagnosis Comme nts IBC Routine 07/08/2012 14:39 Cirrhosis of liver Resul ts for this EDT due to hepatitis C procedure are in the results section. AFP TUMOR MARKER Routine 07/08/2012 14:39 Cirrhosis of liver R esults for this EDT due to hepatitis C procedure are in the results section. TSH Routine 07/08/2012 14:39 Cirrhosis of liver Resul ts for this EDT due to hepatitis C procedure are in the results section. IRON Routine 07/08/2012 14:39 Cirrhosis of liver Resul ts for this EDT due to hepatitis C procedure are in the results section. FERRITIN Routine 07/08/2012 14:39 Cirrhosis of liver Resul ts for this EDT due to hepatitis C procedure are in the results section. HEPATIC FUNCTION Routine 07/08/2012 14:39 Cirrhosis of liver R esults for this PANEL (ALB,ALK EDT due to hepatitis C procedu re are in PHOS,ALT,AST,DBIL,T the resu lts OT [place],TOT PROT) section. documented in this encounter Results (ABNORMAL) FERRITIN (07/08/2012 14:39 EDT) athologist Signature Ferritin 812 (H) 22 - 322 [facility]/mL LAB Specimen Anatomical Collection Method Collection Time Receive d Time (Source) Location / / Volume Laterality Blood specimen 07/08/2012 14:39 2 (specimen) EDT 15:13 EDT Stefany Tracey MD CHEMISTRY & BLOOD GAS ORDERA BLES Performing Organization Address City/[facility]/ZIP Code Phon e Number [facility] [address] [place] [address] SERVICES [facility] [address] [place] [address] (ABNORMAL) IRON (07/08/2012 14:39 EDT) athologist Signature Iron 254 (H) 70 - 180 [facility] ug/dl LAB Specimen Anatomical Collection Method Collection Time Receive d Time (Source) Location / / Volume Laterality Blood specimen 07/08/2012 14:39 2 (specimen) EDT 15:13 EDT Stefany Tracey MD CHEMISTRY & BLOOD GAS ORDERA BLES Performing Organization Address City/[facility]/ZIP Code Phon e Number [facility] [address] [place] [address] SERVICES [facility] [address] [place] [address] IBC (07/08/2012 14:39 EDT) athologist Signature TIBC 291 261 - 462 [facility]/dl LAB Specimen Anatomical Collection Method Collection Time Receive d Time (Source) Location / / Volume Laterality Blood specimen 07/08/2012 14:39 2 (specimen) EDT 15:13 EDT Stefany Tracey MD CHEMISTRY & BLOOD GAS ORDERA BLES Performing Organization Address City/[facility]/ZIP Code Phon e Number [facility] [address] [place] [address] SERVICES [facility] [address] [place] [address] TSH (07/08/2012 14:39 EDT) athologist Signature TSH 1.13 0.35 - 5.00 [facility] u[facility]/ml LAB Specimen Anatomical Collection Method Collection Time Receive d Time (Source) Location / / Volume Laterality Blood specimen 07/08/2012 14:39 2 (specimen) EDT 15:13 EDT Stefany Tracey MD CHEMISTRY & BLOOD GAS ORDERA BLES Performing Organization Address City/[facility] Code Phon e Number [facility] [address] [place] [address] SERVICES [facility] [address] [place] [phone] (ABNORMAL) AFP TUMOR MARKER (07/08/2012 14:39 EDT) Analysis Performed At Patho logist Time Signature AFP-Tumor 155.7 (H) <9 ng/ml [facility] Comment: Reference value is less than 9 in 98.9% of healthy subjects. AFP tumor marker cannot be interpreted i n females. Serum AFP concentration should not be interpreted as absolute evidence for the presence or absence of malignant disease . Assayed utilizing [employer] technology. ??Values obtained by using different assay methods cannot be used interchangeably. Specimen Anatomical Collection Method Collection Time Receive d Time (Source) Location / / Volume Laterality Blood specimen 07/08/2012 14:39 2 (specimen) EDT 15:13 EDT Stefany Tracey MD CHEMISTRY & BLOOD GAS ORDERA BLES Performing Organization Address City/[facility] Code Phon e Number [facility] [address] [place] [address] SERVICES [facility] [address] [place] [address] (ABNORMAL) LIVER FUNCTION TESTS (07/08/2012 14:39 EDT) Patholo gist Method Time Signature Albumin 3.7 3.4 - 4.9 [facility] g/dl [facility] Total Protein 7.6 6.5 - 8.3 [facility] g/dl [facility] Total Alkaline 156 (H) 38 - 126 [facility] Phosphatase U/L [facility] ALT 152 (H) 21 - 72 [facility] AST 167 (H) 15 - 46 [facility] Unconjugated 0.6 0.1 - 1.1 [facility] Bilirubin mg/dl [facility] Conjugated 0.0 0.0 - 0.3 [facility] Bilirubin mg/dl [facility] Bilirubin, Total 1.0 0.2 - 1.3 [facility] mg/dl [facility] Specimen Anatomical Collection Method Collection Time Receive d Time (Source) Location / / Volume Laterality Blood specimen 07/08/2012 14:39 2 (specimen) EDT 15:13 EDT Stefany Tracey MD CHEMISTRY & BLOOD GAS ORDERA BLES Performing Organization Address City/State/ZIP Code Phon e Number [facility] [address] [place] [address] SERVICES [facility] [address] [place] [address] documented in this encounter Visit Diagnoses Diagnosis 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
--- OUTSIDE RECORDS SUMMARY | 2022-09-20 10:00 | XMS_ITS | Encounter Summary ---
:1975 Author Organization [facility] Address [address] [place] [address] Care Team Providers Name Role Phone Moy Mcnair MD Primary Care Provider Encounter Details Date Type Department Care Team Description 08/23/2012 Documentation Visit [facility] León Jalloh, Mood & Anxiety - S [facility] [id number] [place] [address] [place] [address] (Wo rk) Social History Tobacco Use Types [...] on filedocumented in this encounter Care Teams Hiv Prevention Specialist Relationship Specialty Start Date End Date Moy Mcnair MD PCP - General 08/07/11 [address] [place] [address] documented as of this encounter
--- OUTSIDE RECORDS SUMMARY | 2022-09-20 10:00 | XMS_ITS | Encounter Summary ---
:1975 Author Organization [facility] Address [address] [place] [address] Care Team Providers Name Role Phone Moy Mcnair MD Primary Care Provider Reason for Visit Reason Onset Date Comments Hepatitis C 07/05/2013 needs a letter of do cumentation for job stating if uses precautions for Hep C that he can do job. He is starting tonight, and would l gosia this note- att: Kylie Curry fa [phone] Encounter Details Date Type Department Care Team Description 07/05/2013 Telephone [facility] Stefany Tracey Hepatit is C (needs a Gastroenterology - Main MD Nida letter of [place] [address] [place] [address] documentation for job [address] [facility] stating if uses [place], [place] [phone] [place] [address], Main precautions for Hep C [phone] Pav[facility], Level 5 that he can do job. [place], [place] [phone] tonight, and would [phone] like this note- att: (Work) Kylie Curry fa [phone]) Social History Tobacco Use Types Packs/Day Years Used Date Smoking Tobacco: Never Smokeless Tobacco: Former Alcohol Use Standard Drinks/Week Comments No 0 (1 standard drink = 0.6 oz pure alcoho l) Sex Assigned at Date Recorded Not on file documented as of this encounter Miscellaneous Notes Telephone Encounter - Slime Contreras RN - 07/06/2013 0940 EDT in agreement , brief letter written & faxed to the address ( HR @ [facility]) Timi has requested for employment . documented in this encounter Plan of Treatment Not on filedocumented as of this encounter Visit Diagnoses Not on filedocumented in this encounter Care Teams Fish Skinning Machine Feeder Relationship Specialty Start Date End Date Moy Mcnair MD PCP - General 08/07/11 [address] [place] [address] documented as of this encounter
--- OUTSIDE RECORDS SUMMARY | 2022-09-20 10:00 | XMS_ITS | Encounter Summary ---
:1975 Author Organization [facility] Address [address] [place] [address] Care Team Providers Name Role Phone Moy Mcnair MD Primary Care Provider Reason for Visit Reason Comments Anxiety Encounter Details Date Type Department Care Team Description 08/12/2011 Office Visit [facility] Monica Jalloh Ge neralized anxiety Mood & Anxiety - S LOGISTICS ASSISTANT disorder (Primary Dx) [address] [address] [facility] [place] [phone] (Wo rk) Social History Tobacco Use Types Packs/Day Years Used Date Smoking Tobacco: Never Assessed Sex Assigned at Date Recorded Not on file documented as of this encounter Miscellaneous Notes Scanned Note-Null - Extruder Operator Multiple, Scan - 08/15/2011 0815 EDT documented in this encounter Plan of Treatment Not on filedocumented as of this encounter Visit Diagnoses Diagnosis Generalized anxiety disorder - Primary documented in this encounter Care Teams Psychological Aide Relationship Specialty Start Date End Date Moy Mcnair MD PCP - General 08/07/11 [address] [place], [place] [phone] documented as of this encounter
--- OUTSIDE RECORDS SUMMARY | 2022-09-20 10:00 | XMS_ITS | Encounter Summary ---
:1975 Author Organization [facility] Address [address] [place] [address] Care Team Providers Name Role Phone Moy Mcnair MD Primary Care Provider Reason for Visit Reason Comments Anxiety Encounter Details Date Type Department Care Team Description 10/17/2011 [facility] Visit [facility] Monica Jalloh Ge neralized anxiety Mood & Anxiety - S ARCH PAD CEMENTER disorder (Primary Dx) [address] [address] [place] [address] [place] [phone] (Wo rk) Social History Tobacco Use Types [...] Primary documented in this encounter Care Teams Tap Puller Relationship Specialty Start Date End Date Moy Mcnair MD PCP - General 08/07/11 [address] [place] [address] documented as of this encounter
--- OUTSIDE RECORDS SUMMARY | 2022-09-20 10:00 | XMS_ITS | Encounter Summary ---
:1975 Author Organization [facility] Address [address] [place] [address] Care Team Providers Name Role Phone Moy Mcnair MD Primary Care Provider Reason for Visit Reason Comments Anxiety Encounter Details Date Type Department Care Team Description 08/27/2011 Office Visit [facility] Monica Jalloh Ge neralized anxiety Mood & Anxiety - S TIRE FIXER disorder (Primary Dx) [address] [address] [place] [address] [place] [phone] (Wo rk) Social History Tobacco Use Types [...] Primary documented in this encounter Care Teams Electroencephalograph Technician Relationship Specialty Start Date End Date Moy Mcnair MD PCP - General 08/07/11 [address] [place] [address] documented as of this encounter
--- OUTSIDE RECORDS SUMMARY | 2022-09-20 10:00 | XMS_ITS | Encounter Summary ---
:1975 Author Organization [facility] Address [address] [place] [address] Care Team Providers Name Role Phone Moy Mcnair MD Primary Care Provider Encounter Details Date Type Department Care Team Description 01/13/2012 Documentation Visit [facility] Mario Bailey APRN [facility] THIAGO JESÚS [place] [address] [address] [facility] [place] [address] Social History Tobacco Use Types Packs/Day Years Used Date Smoking Tobacco: Never Smokeless Tobacco: Former Alcohol Use Standard Drinks/Week Comments No 0 (1 standard drink = 0.6 oz pure alcoho l) Sex Assigned at Date Recorded Not on file documented as of this encounter Progress Notes Mario Bailey APRN - 01/13/[address] Tracey about patient's recent ALT and AST levels which were elevated compared to 10/05 when last checked. I expressed concern that this may be due to mirtazapine, which can cause hepatic changes. Her view that this was due to his chronic Hep C. Since the medication has been helpful, hewill continue on the current dose. documented in this encounter Plan of Treatment Not on filedocumented as of this encounter Visit Diagnoses Not on filedocumented in this encounter Care Teams Parks Worker Relationship Specialty Start Date End Date Moy Mcnair MD PCP - General 08/07/11 [address] [place] [address] documented as of this encounter
--- OUTSIDE RECORDS SUMMARY | 2022-09-20 10:00 | XMS_ITS | Encounter Summary ---
:1975 Author Organization [facility] Address [address] [place] [address] Care Team Providers Name Role Phone Moy Mcnair MD Primary Care Provider Encounter Details Date Type Department Care Team Description 07/09/[address] [facility] Stefany Tracey Alcohol ic cirrhosis Gastroenterology - [facility] MD Nida of liver ([facility]) [address] (Primary Dx) [address] [place] [phone] [place] [address] [facility] Level [address] [place] [address] Social History Tobacco Use Types [...] Name Priority Date/Time Associated Diagnosis Comme nts OUTPATIENT ADD-ON Routine 07/09/2012 7:16 EDT Alcoholic cirrho sis Results for this of liver ([facility]) procedure are in the results section. documented in this encounter Results OUTPATIENT ADD-ON (07/09/2012 7:16 EDT) Component Value Ref Test Analysis Performed At [facility] Range Method Time Signature Tests to be HEMOCHROMATOSIS [facility] added GENE TEST FROM [facility] YESTERDAY'S (07/08) SAMPLE Diagnosis Code SEE PRISM [facility] Number for [id number] [facility] Accession CALLED [facility] SPOKE TO GUMARO AND LET HER KNWO THAT WE COULD NTO ADD HEMAC DUE TO NOT HAVING [facility] number CORRECT SAMPLE TYPE [facility] Acknowledge Done [facility] ABP [facility] Specimen Anatomical Collection Method Collection Time Receive d Time (Source) Location / / Volume Laterality 07/09/2012 7:16 07/09/2012 8 :07 EDT EDT Stefany Tracey MD HEMATOLOGY & PF4 ORDERABLES Performing Organization Address City/State/ZIP Code Phon e Number [facility] [address] [place] [address] SERVICES [facility] [address] [place] [address] documented in this encounter Visit Diagnoses Diagnosis Alcoholic cirrhosis of liver (HCC) - Chantal perera Alcoholic cirrhosis of liver documented in this encounter Care Teams Director Enterprise Sales Relationship Specialty Start Date End Date Moy Mcnair MD PCP - General 08/07/11 [address] [place] [address] documented as of this encounter
--- OUTSIDE RECORDS SUMMARY | 2022-09-20 10:00 | XMS_ITS | Encounter Summary ---
:[address] [facility] Address [address] [place] [address] Care Team Providers Name Role Phone Moy Mcnair MD Primary Care Provider Encounter Details Date Type Department Care Team Description 01/02/2012 Abstract [facility] Carey Tracey MD Gastroenterology - [phone] [place] [address], [place] [address] (Wo rk) Social History Tobacco Use Types Packs/Day Years Used Date Smoking Tobacco: Never Alcohol Use Standard Drinks/Week Comments No 0 (1 standard drink = 0.6 oz pure alcoho l) Sex Assigned at Date Recorded Not on file documented as of this encounter Plan of Treatment Not on filedocumented as of this encounter Visit Diagnoses Not on filedocumented in this encounter Care Teams Shutdown Planner Relationship Specialty Start Date End Date Moy Mcnair MD PCP - General 08/07/11 [address] [place] [address] documented as of this encounter
--- OUTSIDE RECORDS SUMMARY | 2022-09-20 10:00 | XMS_ITS | Encounter Summary ---
:1975 Author Organization [facility] Address [address] [place] [address] Care Team Providers Name Role Phone Moy Mcnair MD Primary Care Provider Reason for Visit Reason Onset Date Comments Medications Refill 10/22/2012 Encounter Details Date Type Department Care Team Description 10/22/2012 Refill [facility] Santiago Bailey, BATSHEVA Medications Refill Mood & Anxiety - S [address] [address] [place], [place] [address] [phone] Social History Tobacco Use Types Packs/Day Years [...] on filedocumented in this encounter Care Teams Senior Oracle Dba Relationship Specialty Start Date End Date Moy Mcnair MD PCP - General 08/07/11 [address] [place], [place] [phone] documented as of this encounter
--- OUTSIDE RECORDS SUMMARY | 2022-09-20 10:00 | XMS_ITS | Encounter Summary ---
:1975 Author Organization [facility] Address [address] [place] [address] Care Team Providers Name Role Phone Moy Mcnair MD Primary Care Provider Encounter Details Date Type Department Care Team Description 04/14/2013 Hospital En[facility] [address] [place], [place] [address] [place] [address] [address], [address] [place] [address] (Wo rk) Social History Tobacco Use Types Packs/Day Years Used Date Smoking Tobacco: Never Smokeless Tobacco: Former Alcohol Use Standard Drinks/Week Comments No 0 (1 standard drink = 0.6 oz pure alcoho l) Sex Assigned at Date Recorded Not on file documented as of this encounter Medications at Time of Discharge Medication Sig Dispensed Refills Start Date End Date mirtazapine (REMERON) 45 Take 1 Tab by mouth 30 Tab 2 mg tablet daily. multivitamin (THERAGRAN) Take 1 Tab by mouth 0 per tablet daily. carvedilol (COREG) 6.25 mg Take 1 Tab by mouth 60 Tab 11 11/17/2012 06/23/2016 tablet daily. documented as of this encounter Discharge Disposition Disposition Code Departure Means Destination Auto Discharge Home documented in this encounter Plan of Treatment Not on filedocumented as of this encounter Visit Diagnoses Not on filedocumented in this encounter Care Teams Sales Development Director Relationship Specialty Start Date End Date Moy Mcnair MD PCP - General 08/07/11 [address] [place], [place] [phone] documented as of this encounter
--- OUTSIDE RECORDS SUMMARY | 2022-09-20 10:00 | XMS_ITS | Encounter Summary ---
:1975 Author Organization [facility] Address [address] [place] [address] Care Team Providers Name Role Phone Moy Mcnair MD Primary Care Provider Reason for Visit Reason Comments Other Hep C triple therapy mago boo Encounter Details Date Type Department Care Team Description 01/20/2014 Office Visit [facility] Unknown, Raymond hernandez MD Chronic hepatitis C Gastroenterology - Main [facility], [facility], MBBS with cirrhosis [place] ([facility]) (Primary [address]) [place] [address] Social History Tobacco Use Types Packs/Day Years Used Date Smoking Tobacco: Never Smokeless Tobacco: Former Alcohol Use Standard Drinks/Week Comments No 0 (1 standard drink = 0.6 oz pure alcoho l) Sex Assigned at Date Recorded Not on file documented as of this encounter Progress Notes Amol Morin RN - 01/20/2014 2768 EDT PEGASYS Therapy Instructions Moy Mcnair Unknown, Doctor, RN:AMOL MORIN RN 01/20/2014 Teacher: AMOL MORIN RN Therapy Start Date: 01/20/14 Target End Date: 12 weeks Therapy: PEGASYS Dose: 180mcg weekly on Thursday SOVALDI Dose: 400mg once daily COPEGUS Dose: 3 tablets QAM 3 tablets QPM Present During Teaching: patient and significant other 1. Self-Injection Instruction: Materials Needed (vial, alcohol pad, syringe/needle, sharps container), Selecting (e.g., thigh, stomach area) and Rotating Injection Sites and Injection of PEGASYS 2. IMPORTANT: CALL your health care provider immediately if you develop any of these conditions: become , become very depressed or think about suicide, have severe chest pain, have trouble breathing, have a change in your vision, notice unusual bleeding or bruising, have psoriasis (a skin disease) and it gets worse while taking PEGASYS, have a high fever or a fever that does not go away, havesevere stomach pain or lower back pain and experience bloody diarrhea 3. Helpful Management Hints for Side Effects: Flu-Like Symptoms:reviewed Fatigue:reviewed Loss of appetite, nausea, diarrhea:reviewed Blood sugar problems:reviewed Skin reactions - dry, itchy skin, rash, redness:reviewed Hair thinning:reviewed Trouble sleeping:reviewed 4. and Contraception Guidelines Reviewed: Monthly Negative Test, 2 Forms of Contraception, Female partners of male patients and Registry: 5. Storage of PEGASYS: Refrigerate at a temperature of 36F to 46F (2C to 8C), Do not leave PEGASYS outside of the refrigerator for more than 24 hours, Do not freeze PEGASYS and Store Copegus tablets atroom temperature (77F) 6. Patient Education and Support Materials Provided: Patient Starter Kit, Pegassist Support Program 1-562-UXCMCYQ and www.PEGASYSPlay for Job 7. Follow-Up Labs and Appointments: Weekly labs x 4 weeks, then every month & PRN. Comments: Side effect profile & self injection reviewed Patient Education Topic: side effects & self injection Method: Demonstration, Handout and Verbal Taught to: Family Barriers: None Outcomes: independent I was supervised by * who was present and immediately available in the office suite. AMOL MORIN, TOBIAS 01/20/2014 14:58 documented in this encounter Plan of Treatment Not on filedocumented as of this encounter Visit Diagnoses Diagnosis Chronic hepatitis C with cirrhosis (HCC- CMS) (HCC) - Primary Chronic hepatitis C without mention of h epatic coma documented in this encounter Care Teams Orchid Superintendent Relationship Specialty Start Date End Date Moy Mcnair MD PCP - General 08/07/11 [address] [place] [address] documented as of this encounter
--- OUTSIDE RECORDS SUMMARY | 2022-09-20 10:00 | XMS_ITS | Encounter Summary ---
:1975 Author Organization [facility] Address [address] [place] [address] Care Team Providers Name Role Phone Moy Mcnair MD Primary Care Provider Reason for Visit Reason Onset Date Comments Medications Refill 10/20/2012 Encounter Details Date Type Department Care Team Description 10/20/[address] [facility] Santiago Bailey APRN Medications Refill Mood & Anxiety - [address] [address] [place], [place] [id number] [phone] Social History Tobacco Use Types Packs/Day Years Used Date Smoking Tobacco: Never Smokeless Tobacco: Former Alcohol Use Standard Drinks/Week Comments No 0 (1 standard drink = 0.6 oz pure alcoho l) Sex Assigned at Date Recorded Not on file documented as of this encounter Ordered Prescriptions Prescription Sig Dispensed Refills Start Date End Date mirtazapine (REMERON) 45 mg Take 1 Tab by mouth 30 Tab 2 10/20/2012 tablet daily. documented in this encounter Plan of Treatment Not on filedocumented as of this encounter Visit Diagnoses Not on filedocumented in this encounter Discontinued Medications Medication Sig Discontinue Reason Start Date End Date mirtazapine (REMERON) 45 Take 1 Tab by mouth Reorder 2 10/20/2012 mg tablet daily. documented as of this encounter Care Teams Screening Representative Relationship Specialty Start Date End Date Moy Mcnair MD PCP - General 08/07/11 [address] [place], [place] [phone] documented as of this encounter
--- OUTSIDE RECORDS SUMMARY | 2022-09-20 10:00 | XMS_ITS | Encounter Summary ---
:1975 Author Organization [facility] Address [address] [place] [address] Care Team Providers Name Role Phone Moy Mcnair MD Primary Care Provider Reason for Visit Reason Onset Date Comments Ultrasound 10/10/2013 Encounter Details Date Type Department Care Team Description 10/10/[address] [facility] Carey Tracey MD Ultrasound Gastroenterology - [address], [address], [address] [place] [address] [place], [place] [phone] (Wo rk) Social History Tobacco Use Types Packs/Day Years Used Date Smoking Tobacco: Never Smokeless Tobacco: Former Alcohol Use Standard Drinks/Week Comments No 0 (1 standard drink = 0.6 oz pure alcoho l) Sex Assigned at Date Recorded Not on file documented as of this encounter Miscellaneous Notes Telephone Encounter - Génesis Tarango - 10/10/2013 5006 EST Left message for patient to call me back to schedule his ultra sound. documented in this encounter Plan of Treatment Not on filedocumented as of this encounter Visit Diagnoses Not on filedocumented in this encounter Care Teams Process Control Tech Relationship Specialty Start Date End Date Moy Mcnair MD PCP - General 08/07/11 [address] [place], [place] [phone] documented as of this encounter
--- OUTSIDE RECORDS SUMMARY | 2022-09-20 10:00 | XMS_ITS | Encounter Summary ---
:1975 Author Organization [facility] Address [address] [place] [address] Care Team Providers Name Role Phone Moy Mcnair MD Primary Care Provider Reason for Visit Reason Comments Anxiety Encounter Details Date Type Department Care Team Description 10/31/2011 Office Visit [facility] Santiago Bailey B, BATSHEVA Generalized anxiety Psychiatry - [address] [facility] [address] disorder (Primary [place] JANEE C Dx) [address] [place] [address] [place], [place] [phone] (Wo rk) [address] [phone] Social History Tobacco Use Types Packs/Day Years Used Date Smoking Tobacco: Never Alcohol Use Standard Drinks/Week Comments No 0 (1 standard drink = 0.6 oz pure alcoho l) Sex Assigned at Date Recorded Not on file documented as of this encounter Ordered Prescriptions Prescription Sig Dispensed Refills Start Date End Date mirtazapine (REMERON) 30 Take 1 Tab by mouth 30 Tab 2 02/26/2012 mg tablet daily. documented in this encounter Plan of Treatment Not on filedocumented as of this encounter Visit Diagnoses Diagnosis Generalized anxiety disorder - Primary documented in this encounter Discontinued Medications Medication Sig Discontinue Reason Start Date End Date mirtazapine (REMERON) 30 Take 1 Tab by mouth Reorder 1 10/31/2011 mg tablet daily. documented as of this encounter Care Teams Stator Winder Relationship Specialty Start Date End Date Moy Mcnair MD PCP - General 08/07/11 [address] [place], [place] [phone] documented as of this encounter
--- OUTSIDE RECORDS SUMMARY | 2022-09-20 10:00 | XMS_ITS | Encounter Summary ---
:1975 Author Organization [facility] Address [address] [place] [address] Care Team Providers Name Role Phone Myo Mcnair MD Primary Care Provider Reason for Visit Reason Onset Date Comments Labs Only 09/30/2011 Encounter Details Date Type Department Care Team Description 09/30/[address] [facility] Santiago Bailey, PLAYER DEVELOPMENT EXECUTIVE Labs Only Memory Program - Medical [address] [address] [place] [address] [phone] Social History Tobacco Use Types Packs/Day Years Used Date Smoking Tobacco: Never Alcohol Use Standard Drinks/Week Comments No 0 (1 standard drink = 0.6 oz pure alcoho l) Sex Assigned at Date Recorded Not on file documented as of this encounter Plan of Treatment Not on filedocumented as of this encounter Results (ABNORMAL) LIVER FUNCTION TESTS (01/08/2012 14:45 EDT) [facility] Method Time Signature Albumin 3.8 3.4 - [...] 2 (specimen) EDT 15:10 EDT Mario Bailey PLAYER DEVELOPMENT EXECUTIVE CHEMISTRY & BLOOD GAS ORDERA BLES Performing Organization Address City/State/ZIP Code Phon e Number [facility] [address] [place] [address] SERVICES [facility] [address] [place] [address] documented in this encounter Visit Diagnoses Diagnosis EMILEE (generalized anxiety disorder) Generalized anxiety disorder Hepatitis C Unspecified viral hepatitis C without he patic coma documented in this encounter Care Teams High Pressure Operator Relationship Specialty Start Date End Date Moy Mcnair MD PCP - General 08/07/11 [address] [place] [address] documented as of this encounter
--- OUTSIDE RECORDS SUMMARY | 2022-09-20 10:00 | XMS_ITS | Encounter Summary ---
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 Stefany Tracey is of liver Gastroenterology - Jeovany Alva MD due to hepatitis C [place] [address] [place] [address] (Primary Dx) [address] [phone] [address] Social History Tobacco Use Types Packs/Day Years Used Date Smoking Tobacco: Never Smokeless Tobacco: Former Alcohol Use Standard Drinks/Week Comments No 0 (1 standard drink = 0.6 oz pure alcoho l) Sex Assigned at Date Recorded Not on file documented as of this encounter Last Filed Vital Signs Vital Sign Reading Time Taken Comments Blood Pressure 138/85 07/08/2012 1341 EDT Pulse 100 07/08/2012 1341 EDT Temperature - - Respiratory Rate - - Oxygen Saturation - - Inhaled Oxygen Concentration - - Weight 95.3 kg (210 lb) 07/08/2012 1341 EDT Height 171.5 cm (5' 7.5) 07/08/2012 1341 EDT Body Mass Index 32.41 07/08/2012 1341 EDT documented in this encounter Progress Notes Stefany Tracey MD - 07/08/2012 1352 EDT Mr. Freeman is a 36yo man with anxiety, HCV genotype 1a, IL28B CC genotype (by his report) naive to therapy with mildly elevated aminotransferases and cirrhosis on liver biopsy. He has been clean and sober for ~ 1 year and is interested in therapy. Mr. Freeman was not able to consider HCV therapy this due to job constraints, and presents to clinic today to discuss therapy this fall. I explained to Mr. Freeman and his that the treatment of HCV genotype 1a has recently changed with the introduction of protease inhibitor therapy. By adding a protease inhibitor to PegIFN/riba, thelikelihood of achieving a sustained virologic response (undetectable HCV RNA 6 months after treatment discontinuation) increases from 35% to 80%. We discussed the risks and benefits of therapy, the side effects of treatment, the implications of favorable (CC) IL28B genotype, the concept of response-guided therapy, the need for surveillance for hepatocellular carcinoma given his cirrhosis, and the anti cipated development of IFN-free medications in the next 3-5 years. Given his young age and presence of cirrhosis, I think it is best to begin treatment now. However, prior to starting I would like Mr. Freeman to re-establish care with the Mood and Anxiety clinic, given his history of anxiety. If it is felt that he is on a stable dose of medication and could tolerate therapy; and if the psychologist/psychiatrist is willing to monitor him along with us during his treatment, we will begin triple therapy(telaprevir plus PegIFN/riba). Lab: Lab Results Component Value Date AST 172* 01/08/2012 ALT 190* 01/08/2012 TBIL 0.7 01/08/2012 ALKPHOS 120 01/08/2012 LABALBU 49.4 01/08/2012 LABALBU 3.8 01/08/2012 Impression: 1. HCV genotype 1a Mr. Freeman is considered a good candidate for therapy. Will obtain blood work today, have him schedule an appointment with Psychiatry to maximize his anxiety medication and follow along with us duringtreatment, and obtain prior approval from his insurance company. Plan: 1. Follow up with Psychiatry to re-establish care prior to beginning HCV therapy 2. TSH, Fe, TIBC, ferritin, AFP, liver panel and abdominal US 3. Obtain preapproval from insurance company; provide anti-HCV teaching 4. Follow up in 3 months documented in this encounter Plan of Treatment Scheduled Orders Name Type Priority Associated Diagnoses Order S chedule RAD US ABDOMEN ONE Imaging Routine Cirrhosis of liver due to Ordered: 07/08/2012 ORGAN/QUADRANT hepatitis C documented as of this encounter Results (ABNORMAL) FERRITIN (07/08/2012 14:39 EDT) athologist Signature Ferritin 812 (H) 22 - 322 [facility] ng/mL LAB Specimen Anatomical Collection Method Collection Time Receive d Time (Source) Location / / Volume Laterality Blood specimen 07/08/2012 14:39 2 (specimen) EDT 15:13 EDT Stefany Tracey MD CHEMISTRY & BLOOD GAS ORDERA BLES Performing Organization Address City/[facility] [address]/ZIP Code Phon e Number [facility] [address] [place] [address] SERVICES [facility] [address] [place] [address] (ABNORMAL) IRON (07/08/2012 14:39 EDT) athologist Signature Iron 254 (H) 70 - 180 [facility] ug/dl LAB Specimen Anatomical Collection Method Collection Time Receive d Time (Source) Location / / Volume Laterality Blood specimen 07/08/2012 14:39 2 (specimen) EDT 15:13 EDT Stefany Tracey MD CHEMISTRY & BLOOD GAS ORDERA BLES Performing Organization Address City/[facility] [address]/ZIP Code Phon e Number [facility] [address] [place] [address] SERVICES [facility] [address] [place] [address] IBC (07/08/2012 14:39 EDT) P athologist Signature TIBC 291 261 - 462 [facility] ug/dl LAB Specimen Anatomical Collection Method Collection Time Receive d Time (Source) Location / / Volume Laterality Blood specimen 07/08/2012 14:39 2 (specimen) EDT 15:13 EDT Stefany Tracey MD CHEMISTRY & BLOOD GAS ORDERA BLES Performing Organization Address City/State/ZIP Code Phon e Number [facility] [address] [place] [address] SERVICES [facility] [address] [place] [address] TSH (07/08/2012 14:39 EDT) athologist Signature TSH 1.13 0.35 - 5.00 [facility] uIU/ml LAB Specimen Anatomical Collection Method Collection Time Receive d Time (Source) Location / / Volume Laterality Blood specimen 07/08/2012 14:39 2 (specimen) EDT 15:13 EDT Stefany Tracey MD CHEMISTRY & BLOOD GAS ORDERA BLES Performing Organization Address City/[facility] [address]/ZIP Code Phon e Number [facility] [address] [place] [address] SERVICES [facility] [address] [place] [address] (ABNORMAL) AFP TUMOR MARKER (07/08/2012 14:39 EDT) Analysis Performed At [facility] logist Time Signature AFP-Tumor 155.7 (H) <9 ng/ml [facility] Comment: Reference value is less than 9 in 98.9% of healthy subjects. AFP tumor marker cannot be interpreted i n females. Serum AFP concentration should not be interpreted as absolute evidence for the presence or absence of malignant disease . Assayed utilizing ImageWare Systemsesce nt technology. ??Values obtained by using different assay methods cannot be used interchangeably. Specimen Anatomical Collection Method Collection Time Receive d Time (Source) Location / / Volume Laterality Blood specimen 07/08/2012 14:39 2 (specimen) EDT 15:13 EDT Stefany Tracey MD CHEMISTRY & BLOOD GAS ORDERA BLES Performing Organization Address City/State/ZIP Code Phon e Number [facility] [address] [place] [address] SERVICES [facility] [address] [place] [address] (ABNORMAL) LIVER FUNCTION TESTS (07/08/2012 14:39 EDT) [facility] gist Method Time Signature Albumin 3.7 3.4 [...] BLOOD GAS ORDERA BLES Performing Organization Address City/[facility] [address]/ZIP Code Phon e Number [facility] [address] [place] [address] SERVICES [facility] [address] [place] [address] documented in this encounter Visit Diagnoses Diagnosis 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
--- OUTSIDE RECORDS SUMMARY | 2022-09-20 10:00 | XMS_ITS | Encounter Summary ---
:1975 Author Organization [facility] Address [address] [place] [address] Care Team Providers Name Role Phone Moy Mcnair MD Primary Care Provider Encounter Details Date Type Department Care Team Description 09/26/2011 Phlebotomy [address] [facility] Peritoneal Dialysis Registered NurseNano [facility] disorder [address] [place] [address] Social History Tobacco Use Types Packs/Day Years Used Date Smoking Tobacco: Never Alcohol Use Standard Drinks/Week Comments No 0 (1 standard drink = 0.6 oz pure alcoho l) Sex Assigned at Date Recorded Not on file documented as of this encounter Plan of Treatment Not on filedocumented as of this encounter Procedures Procedure Name Priority Date/Time Associated Diagnosis Comme nts HEPATIC FUNCTION Routine 09/26/2011 11:02 Generalized anxiety Results for this PANEL (ALB,ALK EST disorder procedure are in PHOS,ALT,AST,DBIL,T the resu lts OT [place],TOT PROT) section. documented in this encounter Results (ABNORMAL) LIVER FUNCTION TESTS (09/26/2011 11:02 EST) [facility] Method Time Signature Albumin 3.8 3.4 - 4.9 [facility] g/dl [facility] Total Protein 7.8 6.5 - 8.3 [facility] g/dl [facility] Total Alkaline 137 (H) 38 - 126 [facility] Phosphatase U/L [facility] ALT 152 (H) 21 - 72 [facility] U/L [facility] AST 154 (H) 15 - 46 [facility] U/L [facility] Unconjugated 0.9 0.1 - 1.1 [facility] Bilirubin mg/dl [facility] Conjugated 0.0 0.0 - 0.3 [facility] Bilirubin mg/dl [facility] Bilirubin, Total 1.2 0.2 - 1.3 [facility] mg/dl [facility] Specimen Anatomical Collection Method Collection Time Receive d Time (Source) Location / / Volume Laterality Blood specimen 09/26/2011 11:02 1 (specimen) EST 12:09 EST Mario Bailey DRUM DRIER OPERATOR CHEMISTRY & BLOOD GAS ORDERA BLES Performing Organization Address City/State/ZIP Code Phon e Number [facility] [address] [place] [address] SERVICES [facility] [address] [place] [address] documented in this encounter Visit Diagnoses Diagnosis Generalized anxiety disorder documented in this encounter Care Teams Ergonomics Technician Relationship Specialty Start Date End Date Moy Mcnair MD PCP - General 08/07/11 [address] [place] [address] documented as of this encounter
--- OUTSIDE RECORDS SUMMARY | 2022-09-20 10:00 | XMS_ITS | Encounter Summary ---
:1975 Author Organization [facility] Address [address] [place] [address] Care Team Providers Name Role Phone Moy Mcnair MD Primary Care Provider Reason for Visit Reason Comments Anxiety Encounter Details Date Type Department Care Team Description 09/26/2011 Office Visit [facility] Monica Jalloh Ge neralized anxiety Mood & Anxiety - S PANEL CUTTER disorder (Primary Dx) [address] [address] [place] [address] [place] [phone] (Wo rk) Social History Tobacco Use Types [...] Primary documented in this encounter Care Teams Pearl Restorer Relationship Specialty Start Date End Date Moy Mcnair MD PCP - General 08/07/11 [address] [place] [address] documented as of this encounter
--- OUTSIDE RECORDS SUMMARY | 2022-09-20 10:00 | XMS_ITS | Encounter Summary ---
:1975 Author Organization [facility] Address [address] [place] [address] Care Team Providers Name Role Phone Moy Mcnair MD Primary Care Provider Reason for Visit Reason Comments New Patient Visit hep C Encounter Details Date Type Department Care Team Description 01/08/2012 Office Visit [facility] Stefany Tracey Hepatit is C Gastroenterology - [facility] MD Nida (Primary Dx) [place] [address] [place] [address] [facility] [phone] [facility] [address] [place] [address] Social History Tobacco Use Types Packs/Day Years Used Date Smoking Tobacco: Never Smokeless Tobacco: Former Alcohol Use Standard Drinks/Week Comments No 0 (1 standard drink = 0.6 oz pure alcoho l) Sex Assigned at Date Recorded Not on file documented as of this encounter Last Filed Vital Signs Vital Sign Reading Time Taken Comments Blood Pressure 145/82 01/08/2012 1256 EDT Pulse 64 01/08/2012 1256 EDT Temperature - - Respiratory Rate - - Oxygen Saturation - - Inhaled Oxygen Concentration - - Weight 93 kg (205 lb) 01/08/2012 1256 EDT Height 175.3 cm (5' 9) 01/08/2012 1256 EDT Body Mass Index 30.27 01/08/2012 1256 EDT documented in this encounter Progress Notes Stefany Tracey MD - 01/08/2012 1313 EDT Mr. Freeman is a 36yo man with HTN, depression/anxiety and HCV genotype 1a (naive to treatment) diagnosed 1 year ago, previously followed at [facility], but looking to re-establish care here at [facility]. had care at [facility], liver biopsy with presumed Stage 3 fibrosis (pt reports he was told hehad the beginnings of cirrhosis). He was offered treatment with the protease inhibitors, but due to his dissatisfaction with his care, deferred therapy until he found care at another institution. PMH: Tobacco: as teenager, none since teens EtOH: heavy x 15 years, none x 1.5 years IVDU: none Cocaine: teenage years; none since teens Transfusions: none Tattoos: none Piercings: none Assaults: none Herbal meds: none Caffeine: 12-16oz daily FH: No known GI/liver disease or malignancy Exam: Well-developed, well-nourished male in no acute distress. Heent: anicteric, neck supple, no adenopathy. Lungs: clear. Heart: regular rate and rhythm. Abdomen: soft, nontender, +BS, no masses. Extremities: without cyanosis, clubbing or edema. Labs: Lab Results Component Value Date AST 154* 09/26/2011 ALT 152* 09/26/2011 TBIL 1.2 09/26/2011 ALKPHOS 137* 09/26/2011 LABALBU 3.8 09/26/2011 HCV RNA: 1,610, 000 IU/mL HCV genotype: 1a Impression: 1. HCV genotype 1a Mr. Freeman is a 36yo man with HCV genotype 1a, naive to therapy with mildly elevated aminotransferases and Stage 3 fibrosis on liver biopsy. He has been clean and sober for ~ 1 year and is interested in therapy. We discussed the risks and benefits of therapy, the adverse events associated with therapy, the concept of response-guided therapy, the role of IL28B genotype and our ongoing study among patients with the favorable genotype, and the likelihood of future therapies that do not include interferon and/or ribavirin. Mr. Freeman's job requires that he be available during the summer months, but heis considering beginning therapy in the fall. Plan: 1. Blood work to rule out autoimmune or inherited forms of liver disease. 2. Follow up in 3-4 months to discuss probable therapy for HCV documented in this encounter Procedure Notes CENTRAL OFFICE MECHANIC, SCAN 2 - 01/09/2012 1417 EDTAssociated Order(s): PATHOLOGY - SCANNED documented in this encounter Plan of Treatment Not on filedocumented as of this encounter Procedures Procedure Name Priority Date/Time Associated Diagnosis Comme nts PATHOLOGY - SCANNED 01/09/2012 14:17 Resu lts for this EDT procedure are i n the results section. documented in this encounter Results PATHOLOGY - SCANNED (01/09/2012 14:17 EDT) Specimen (Source) Anatomical Collection Method Collection Time Re ceived Time Location / / Volume Laterality 01/09/2012 14:17 EDT Narrative This result has an attachment that is no t available. Transcriptions CENTRAL OFFICE MECHANIC, SCAN 2 - 01/09/2012 14:17 EDT Scan 2 Support Analyst LAB INFO SERVICE AND SUPPORT & PHONE RESULT PROTIME (01/08/2012 14:45 EDT) P athologist Signature Pro Time 11.8 9.5 - [...] Organization Address City/State/ZIP Code Phon e Number [facility] [address] [place] [address] SERVICES [facility] [address] [place] [address] TTG AB, IGA, S (01/08/2012 14:45 EDT) P athologist Signature tTG Ab, IgA, S <1.2 <4.0 [facility] (Negative) LAB U/mL Comment: Performed by: [facility], [address], [place] [address], Booking Manager: Slime Wiggins, Ph.D. Specimen Anatomical Collection Method Collection Time Receive d Time (Source) Location / / Volume Laterality Blood specimen 01/08/2012 14:45 2 (specimen) EDT 15:10 EDT Stefany Tracey MD IMMUNOLOGY AND SEROLOGY WILLIAM LIEBERMAN Performing Organization Address City/[facility]/ZIP Code Phon e Number [facility] [address] [place] [address] SERVICES [facility] [address] [place] [address] TSH (01/08/2012 14:45 EDT) athologist Signature TSH 1.31 0.35 - 5.00 [facility] uIU/ml LAB Specimen Anatomical Collection Method Collection Time Receive d Time (Source) Location / / Volume Laterality Blood specimen 01/08/2012 14:45 2 (specimen) EDT 15:10 EDT Stefany Tracey MD CHEMISTRY & BLOOD GAS ORDERA BLES Performing Organization Address City/[facility]/ZIP Code Phon e Number [facility] [address] [place] [address] SERVICES [facility] [address] [place] [address] SMOOTH MUSCLE ANTIBODY (01/08/2012 14:45 EDT) P athologist Signature Smooth Muscle <20 <20 Dils [facility] Ab LAB Specimen Anatomical Collection Method Collection Time Receive d Time (Source) Location / / Volume Laterality Blood specimen 01/08/2012 14:45 2 (specimen) EDT 15:10 EDT Stefany Tracey MD IMMUNOLOGY AND SEROLOGY WILLIAM LIEBERMAN Performing Organization Address City/[facility]/ZIP [facility] Phon e Number [facility] [address] [place] [address] SERVICES [facility] [address] [place] [address] (ABNORMAL) HEMAGRAM AND DIFFERENTIAL (01/08/2012 14:45 EDT) [facility] gist Method Time Signature WBC 4.32 4.0 [...] LAB K/cmm Type of Diff: Automated [facility] Specimen Anatomical Collection Method Collection Time Receive d Time (Source) Location / / Volume Laterality Blood specimen 01/08/2012 14:45 2 (specimen) EDT 15:10 EDT Stefany Tracey MD PACKAGES & DNA PROBE ORDERAB LES Performing Organization Address City/State/ZIP Code Phon e Number [facility] [address] [place] [address] SERVICES [facility] [address] [place] [address] (ABNORMAL) FERRITIN (01/08/2012 14:45 EDT) athologist Signature Ferritin 647 (H) 22 - 322 [facility] ng/mL LAB Specimen Anatomical Collection Method Collection Time Receive d Time (Source) Location / / Volume Laterality Blood specimen 01/08/2012 14:45 2 (specimen) EDT 15:10 EDT Stefany Tracey MD CHEMISTRY & BLOOD GAS ORDERA BLES Performing Organization Address City/State/ZIP Code Phon e Number [facility] [address] [place] [address] SERVICES [facility] [address] [place] [address] MITOCHONDRIAL ANTIBODY (01/08/2012 14:45 EDT) P athologist Signature Mitochondrial Ab <20 <20 Dils [facility] Specimen Anatomical Collection Method Collection Time Receive d Time (Source) Location / / Volume Laterality Blood specimen 01/08/2012 14:45 2 (specimen) EDT 15:10 EDT Stefany Tracey MD IMMUNOLOGY AND SEROLOGY WILLIAM LIEBERMAN Performing Organization Address City/[facility]/ZIP Code Phon e Number [facility] [address] [place] [address] SERVICES [facility] [address] [place] [address] (ABNORMAL) ELECTROPHORESIS, SERUM (01/08/2012 14:45 EDT) Patholo [...] BLOOD GAS ORDERA BLES Performing Organization Address City/[facility]/ZIP Code Phon e Number [facility] [address] [place] [address] SERVICES [facility] [address] [place] [address] ANTI NUCLEAR ANTIBODY (01/08/2012 14:45 EDT) P athologist Signature Anti Nuclear Ab <40 0 - 40 [facility] Dils LAB Specimen Anatomical Collection Method Collection Time Receive d Time (Source) Location / / Volume Laterality Blood specimen 01/08/2012 14:45 2 (specimen) EDT 15:10 EDT Stefany Tracey MD IMMUNOLOGY AND SEROLOGY ORDE RABOSKAR Performing Organization Address City/[facility] Code Phon e Number [facility] [address] [place] [address] SERVICES [facility] [address] [place] [address] (ABNORMAL) IRON (01/08/2012 14:45 EDT) athologist Signature Iron 190 (H) 70 - 180 [facility] ug/dl LAB Specimen Anatomical Collection Method Collection Time Receive d Time (Source) Location / / Volume Laterality Blood specimen 01/08/2012 14:45 2 (specimen) EDT 15:10 EDT Stefany Tracey MD CHEMISTRY & BLOOD GAS ORDERA BLES Performing Organization Address City/[facility]/ZIP Code Phon e Number [facility] [address] [place] [address] SERVICES [facility] [address] [place] [address] (ABNORMAL) IGA (01/08/2012 14:45 EDT) P athologist Signature IgA 52 (L) 82 - 453 [facility] mg/dl LAB Specimen Anatomical Collection Method Collection Time Receive d Time (Source) Location / / Volume Laterality Blood specimen 01/08/2012 14:45 2 (specimen) EDT 15:10 EDT Stefany Tracey MD CHEMISTRY & BLOOD GAS ORDERA BLES Performing Organization Address City/[facility]/ZIP Code Phon e Number [facility] [address] [place] [address] SERVICES [facility] [address] [place] [address] IBC (01/08/2012 14:45 EDT) athologist Signature TIBC 319 261 - 462 [facility] ug/dl LAB Specimen Anatomical Collection Method Collection Time Receive d Time (Source) Location / / Volume Laterality Blood specimen 01/08/2012 14:45 2 (specimen) EDT 15:10 EDT Stefany Tracey MD CHEMISTRY & BLOOD GAS ORDERA BLES Performing Organization Address City/[facility]/ZIP Code Phon e Number [facility] [address] [place] [address] SERVICES [facility] [address] [place] [address] CERULOPLASMIN (01/08/2012 14:45 EDT) athologist Signature Cerulplasmin 20.5 15.0 - 30.0 [facility] mg/dL LAB Comment: Performed or Referred by: [facility], [address] [place] [address], Lab Dir: Frankl in Diony Murray III, MD Specimen Anatomical Collection Method Collection Time Receive d Time (Source) Location / / Volume Laterality Blood specimen 01/08/2012 14:45 2 (specimen) EDT 15:10 EDT Stefany Tracey MD CHEMISTRY & BLOOD GAS ORDERA BLES Performing Organization Address City/[facility]/ZIP [facility] Phon e Number [facility] [address] [place] [address] SERVICES [facility] [address] [place] [address] documented in this encounter Visit Diagnoses Diagnosis Hepatitis C - Primary Unspecified viral hepatitis C without he patic coma documented in this encounter Historical Medications This list may reflect changes made after this encounter. Medication Sig Dispensed Refills Start Date End Date multivitamin (THERAGRAN) Take 1 Tab by mouth 0 per tablet daily. added in this encounter Care Teams Clinical Staff Pharmacist Relationship Specialty Start Date End Date Moy Mcnair MD PCP - General 08/07/11 [address] [place] [address] documented as of this encounter
--- OUTSIDE RECORDS SUMMARY | 2022-09-20 10:00 | XMS_ITS | Encounter Summary ---
:1975 Author Organization [facility] Address [address] [place] [address] Care Team Providers Name Role Phone Moy Mcnair MD Primary Care Provider Encounter Details Date Type Department Care Team Description 01/08/2012 Results Only [facility] Stefany Tracey, Gastroenterology - [facility] [address] [address] [facility], [place] [phone] (Wo rk) Social History Tobacco Use Types [...] Name Priority Date/Time Associated Diagnosis Comme nts SMEAR REVIEW Routine 01/08/2012 14:45 EDT Results for this procedure are i n the results section . documented in this encounter Results SMEAR REVIEW (01/08/2012 14:45 EDT) [facility] gist Method Time Signature Smear scan Slide was [facility] only: examined by a [facility] sand technologist to verify the WBC and/or platelet count. Specimen Anatomical Collection Method Collection Time Receive d Time (Source) Location / / Volume Laterality 01/08/2012 14:45 01/08/2012 EDT 15:10 EDT Stefany Tracey MD HEMATOLOGY & PF4 ORDERABLES Performing Organization Address City/State/ZIP Code Phon e Number [facility] [address] [place] [address] SERVICES [facility] [address] [place] [address] documented in this encounter Visit Diagnoses Not on filedocumented in this encounter Care Teams Client Renewal Specialist Relationship Specialty Start Date End Date Moy Mcnair MD PCP - General 08/07/11 [address] [place], [place] [phone] documented as of this encounter
--- OUTSIDE RECORDS SUMMARY | 2022-09-20 10:00 | XMS_ITS | Encounter Summary ---
:[address] [facility] Address [address] [place] [address] Care Team Providers Name Role Phone Moy Mcnair MD Primary Care Provider Encounter Details Date Type Department Care Team Description 10/24/2011 Documentation Visit [facility] León Jalloh, Mood & Anxiety - [facility] [address] [address] [facility] [place] [address] (Wo rk) Social History Tobacco Use Types Packs/Day Years Used Date Smoking Tobacco: Never Alcohol Use Standard Drinks/Week Comments No 0 (1 standard drink = 0.6 oz pure alcoho l) Sex Assigned at Date Recorded Not on file documented as of this encounter Plan of Treatment Not on filedocumented as of this encounter Visit Diagnoses Not on filedocumented in this encounter Care Teams Acls Nurse Relationship Specialty Start Date End Date Moy Mcnair MD PCP - General 08/07/11 [address] [place], [place] [phone] documented as of this encounter
--- OUTSIDE RECORDS SUMMARY | 2022-09-20 10:00 | XMS_ITS | Encounter Summary ---
:1975 Author Organization [facility] Address [address] [place] [address] Care Team Providers Name Role Phone Moy Mcnair MD Primary Care Provider Reason for Visit Reason Comments Hepatitis C 6-month follow-up Encounter Details Date Type Department Care Team Description 04/21/2013 Office Visit [facility] Stefany Tracey Chronic hepatitis C Gastroenterology - [facility] MD Nida with cirrhosis [address] ([facility]) (Primary [address] [facility] Dx) [place] [address] [facility] [phone] [place], [address] [place] [address] Social History Tobacco Use Types Packs/Day Years Used Date Smoking Tobacco: Never Smokeless Tobacco: Former Alcohol Use Standard Drinks/Week Comments No 0 (1 standard drink = 0.6 oz pure alcoho l) Sex Assigned at Date Recorded Not on file documented as of this encounter Last Filed Vital Signs Vital Sign Reading Time Taken Comments Blood Pressure 140/80 04/21/2013 1248 EDT left arm, 14 0/90 on right arm Pulse 80 04/21/2013 1248 EDT Temperature - - Respiratory Rate - - Oxygen Saturation - - Inhaled Oxygen - - Concentration Weight 103.9 kg (229 lb) 04/21/2013 1248 EDT Height 172.7 cm (5' 8) 04/21/2013 1248 EDT Body Mass Index 34.82 04/21/2013 1248 EDT documented in this encounter Discharge Disposition Disposition Code Departure Means Destination Auto Discharge documented in this encounter Progress Notes Stefany Tracey MD - 04/21/2013 1302 EDT Mr Freeman is a 36 yo man with anxiety and chronic hepatitis C genotype Ia naive to therapy with mildly elevated aminotransferases and cirrhosis on liver biopsy, who presents for scheduled clinic followup. Mr. Freeman has gone through a 3- month program with the Mood and Anxiety division and was 'discharged' from the program. He is interested in beginning therapy in June. Exam: Well-developed, well-nourished overweight male in no acute distress. Heent: anicteric, neck supple, no adenopathy. Lungs: clear. Heart: regular rate and rhythm. Abdomen: soft, nontender, +BS, no masses. Extremities: without cyanosis or clubbing; trace edema. Lab: Lab Results Component Value Date AST 190* 11/17/2012 ALT 164* 11/17/2012 TBIL 1.5* 11/17/2012 ALKPHOS 176* 11/17/2012 LABALBU 3.6 11/17/2012 Abdominal US:(04/14/13) Impression: 1. Findings compatible with cirrhosis. 2. No focal hepatic lesion identified. Impression: 1. HCV RNA genotype 1a, naive to treatment Mr. 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 He has been sober for many months and continues to have elevations in AST/ALT suggesting inflammation caused by HCV. We have discussed the risks and benefits of therapy; including the increased risk of side effects (rash, anemia) in patients with cirrhosis, and the risk of worsening anxiety with PegIFN. Mr. Freeman wishes to begin therapy in June (after the busy summer work season is over). He understands that he will need to re-establish care with the Mood and Anxiety center during treatment so that his anxiety can be monitored and treated appropriately. He understands that if triple therapy (protease inhibitor plus PegIFN/riba) needs to be discontinued due to side effects, he is still eligible for therapy with future IFN-free therapies expected to be approved withinthe next 2 years. Plan: 1. HCV RNA, liver panel, BUN/creat, INR today 2. Plan to begin triple therapy in June 3. Plan to contact Mood and Anxiety Disorder clinic prior to beginning therapy so that his anxiety can be monitored and treated as needed. 4. Follow up in 6 months documented in this encounter Plan of Treatment Not on filedocumented as of this encounter Results TSH (04/21/2013 14:03 EDT) athologist Signature TSH 1.13 0.35 - 5.00 [facility] uIU/ml LAB Specimen Anatomical Collection Method Collection Time Receive d Time (Source) Location / / Volume Laterality Blood specimen 04/21/2013 14:03 3 (specimen) EDT 14:14 EDT Stefany Tracey MD CHEMISTRY & BLOOD GAS ORDERA BLES Performing Organization Address City/[facility]/ZIP Code Phon e Number [facility] [address] [place] [address] SERVICES [facility] [address] [place] [address] HCV RNA DETECT QUANT (04/21/2013 14:03 EDT) athologist Signature HCV RNA Detect [id number] IU/mL [facility] Quant LAB Comment: Reference Range: ??Undetected The quantification range of this assay i s 43 IU/mL to 69,000,000 IU/mL. Testing was performed by the [employer]/Hannah TaqMan HCV Test ([employer] Specimen Anatomical Collection Method Collection Time Receive d Time (Source) Location / / Volume Laterality Blood specimen 04/21/2013 14:03 3 (specimen) EDT 14:14 EDT Stefany Tracey MD CHEMISTRY & BLOOD GAS ORDERA BLES Performing Organization Address City/State/ZIP Code Phon e Number [facility] [address] [place] [address] SERVICES [facility] [address] [place] [address] (ABNORMAL) CREATININE (04/21/2013 14:03 EDT) Analysis Performed At [facility] logist Time Signature Creatinine 0.65 (L) 0.66 - [facility] 1.25 mg/dl [facility] GFR, Calculated >60 >60 [facility] ml/min/1.7 [facility] 3m2 Specimen Anatomical Collection Method Collection Time Receive d Time (Source) Location / / Volume Laterality Blood specimen 04/21/2013 14:03 3 (specimen) EDT 14:14 EDT Stefany Tracey MD CHEMISTRY & BLOOD GAS ORDERA BLES Performing Organization Address City/State/ZIP Code Phon e Number [facility] [address] [place] [address] SERVICES [facility] [address] [place] [address] BUN (04/21/2013 14:03 EDT) athologist Signature BUN 13 10 - 26 [facility] mg/dl LAB Specimen Anatomical Collection Method Collection Time Receive d Time (Source) Location / / Volume Laterality Blood specimen 04/21/2013 14:03 3 (specimen) EDT 14:14 EDT Stefany Tracey MD CHEMISTRY & BLOOD GAS ORDERA BLES Performing Organization Address City/[facility] Code Phon e Number [facility] [address] [place] [address] SERVICES [facility] [address] [place] [address] documented in this encounter Visit Diagnoses Diagnosis Chronic hepatitis C with cirrhosis (HCC- CMS) (HCC) - Primary Chronic hepatitis C without mention of h epatic coma documented in this encounter Orders Lab Orders Without Results Count Last Ordered Date Ordered Date AFP TUMOR MARKER 1 04/21/2013 LIVER FUNCTION TESTS 1 04/21/2013 documented in this encounter Care Teams Fibre Technologist Relationship Specialty Start Date End Date Moy Mcnair MD PCP - General 08/07/11 [address] [place], [place] [phone] documented as of this encounter
--- OUTSIDE RECORDS SUMMARY | 2022-09-20 10:00 | XMS_ITS | Encounter Summary ---
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
--- OUTSIDE RECORDS SUMMARY | 2022-09-20 10:00 | XMS_ITS | Encounter Summary ---
:1975 Author Organization [facility] Address [address] [place] [address] Care Team Providers Name Role Phone Moy Mcnair MD Primary Care Provider Encounter Details Date Type Department Care Team Description 07/19/2012 [facility] 111 [facility] [address] [place], [place] [phone] [place] [address] [address], [address] [place] [address] (Wo rk) Social History Tobacco [...] 11/17/2012 mg tablet daily. mirtazapine (REMERON) 30 take 1 tablet by 30 Tab 2 02/2507/23/2012 mg tablet mouth once daily documented as of this encounter Discharge Disposition Disposition Code Departure Means Destination Auto Discharge Home documented in this encounter Plan of Treatment Not on filedocumented as of this encounter Visit Diagnoses Not on filedocumented in this encounter Care Teams Vending Machine Servicer Relationship Specialty Start Date End Date Moy Mcnair MD PCP - General 08/07/11 [address] [place], [place] [phone] documented as of this encounter
--- NOTE | 2022-09-20 10:19 | DI.RAD_ITS ---
Exam(s) XR TIB/FIB LT EXAM: XR TIB/FIB LT CLINICAL HISTORY: PAIN IN LEFT ANKLE. TECHNIQUE: 2D digital imaging was performed. Two views. COMPARISON: No exams were available for comparison FINDINGS: BONES: No acute fracture is present. No bony destructive lesion is seen. Visualized portion of knee a nd ankle joints are unremarkable. SOFT TISSUE: Normal. IMPRESSION: Unremarkable radiographs of the left tibia and fibula. DATA REPOSITORY: RADIATION DOSE DELIVERED:
--- NOTE | 2022-09-20 10:19 | DI.RAD_ITS ---
Exam(s) XR ANKLE LT COMPLETE EXAM: XR ANKLE LT COMPLETE CLINICAL HISTORY: PAIN LT ANKLE TECHNIQUE: 2D digital imaging was performed. Three views. COMPARISON: No exams were available for comparison FINDINGS: BONES: No acute fracture is present. No bony destructive lesion is seen. JOINTS:The ankle mortise is normally aligned. SOFT TISSUE: Swelling around the malleoli. IMPRESSION: Unremarkable radiographs of the left ankle. DATA REPOSITORY: RADIATION DOSE DELIVERED:
--- NOTE | 2022-09-20 10:38 | DI.VRAD_ITS ---
PROCEDURE INFORMATION: Exam: XR Left Ankle Exam date and time: 09/20/2022 10:10 AM Age: 46 years old Clinical indication: Pain and injury or trauma; Fall; Sprain or strain and swelling (edema); Ankle; Left TECHNIQUE: Imaging protocol: Radiologic exam of the Left ankle. Views: 3 or more views. COMPARISON: No relevant prior studies available. FINDINGS: Bones/joints: No acute fracture or dislocation. Ankle mortise is preserved. Soft tissues: Mild ankle swelling. IMPRESSION: No acute osseous abnormality. Dictated and Authenticated by: Celso Singer MD. Ordering:LILI GOLDEN MD
--- NOTE | 2022-09-20 10:39 | DI.VRAD_ITS ---
PROCEDURE INFORMATION: Exam: XR Left Tibia and Fibula Exam date and time: 09/20/2022 10:12 AM Age: 46 years old Clinical indication: Pain; Ankle; Left TECHNIQUE: Imaging protocol: Radiologic exam of the Left tibia and fibula. Views: 2 views. COMPARISON: CR XR ANKLE LT COMPLETE 09/20/2022 10:10 AM FINDINGS: Bones/joints: No acute fracture or dislocation. Joint spaces maintained. 2 cm sclerotic focus within the proximal tibial diaphysis, favored to represent a bone island. Soft tissues: Normal. IMPRESSION: No acute osseous abnormality. Dictated and Authenticated by: Celso Singer MD. Ordering:LILI GOLDEN MD
== END ==
PROVIDERS: PCP Internal Medicine; Visit Provider Nurse Practitioner Family
DX: M25.572 Pain in left ankle and joints of left foot (principal)
CPT/HCPCS: 73590; 73610

== ENCOUNTER 2023-04-06 17:50 | Outpatient (REF) | payer OTHER, SELFPAY ==
[2023-04-06 21:14] LABS: Abs Immature Grans 0.01 10^3/uL (0.0-0.06); Absolute Basophil Count 0.03 10^3/uL (0.0-0.2); Absolute Eosinophil Count 0.12 10^3/uL (0.0-0.7); Absolute Lymphocyte Count 0.95 10^3/uL (1.2-3.4); Absolute Monocyte Count 0.73 10^3/uL (0.1-0.8); Absolute Neutrophil Count 3.15 10^3/uL (1.2-6.7); Basophils % 0.6; Eosinophils % 2.4; HCT 45.6 % (40.0-50.0); HGB 16.2 g/dL (13.5-17.5); Immature Grans % 0.2; MCH 34.1 pg (27.0-33.0); MCHC 35.5 % (32.0-36.0); MCV 96 fL (80-95); MPV 12.4 fL (8.0-11.0); Monocytes % 14.6; Neutrophils % 63.2; Platelet Count 100 10^3/uL (130-400); RBC 4.75 10^6/uL (4.36-5.78); RDW 11.7 % (11.8-14.1); WBC 4.99 10^3/uL (4.4-10.8)
[2023-04-06 21:36] LABS: ALT 56 U/L (16-63); AST 65 U/L (15-37); Albumin 3.4 g/dL (3.4-5.0); Alkaline Phosphatase 136 U/L (46-116); Anion Gap 8.7 mmol/L (3-11); BUN 12 mg/dL (7-18); Bilirubin, Total 1.4 mg/dL (0.2-1.0); CO2 25.3 mmol/L (21.0-32.0); CREATININE 0.7 mg/dL (0.70-1.30); Chloride 105 mmol/L (98-107); Estimated GFR 113.66 (mL/min/1.73m2); Glucose 106 mg/dL (74-106); Potassium 4.2 mmol/L (3.5-5.1); Sodium 139 mmol/L (136-145); Total Protein 7.6 g/dL (6.4-8.2)
[2023-04-08 09:46] LABS: AFP Tumor Marker 7.9 ng/mL (<8.1)
== END 2023-04-06 17:51 | disposition home or self-care (01) ==
LOC: NCHCN 17:50
PROVIDERS: PCP Internal Medicine; Visit Provider Family Medicine
DX: K74.60 Unspecified cirrhosis of liver (principal); F41.9 Anxiety disorder, unspecified; F32.9 Major depressive disorder, single episode, unspecified; D69.6 Thrombocytopenia, unspecified
CPT/HCPCS: 80053; 82105; 85025; 85610